=== PATIENT | female | born 1955 | race Caucasian/White ===

== ENCOUNTER 2018-06-05 09:33 | Outpatient (CLI) | payer BC | END 2018-06-05 09:34 | disposition critical access hospital (66) | LOC: EMS 09:33 | PROVIDERS: ATTEND Surgery | DX: S09.90XA Unspecified injury of head, initial encounter (principal); S69.91XA Unspecified injury of right wrist, hand and finger(s), initial encounter; W18.30XA Fall on same level, unspecified, initial encounter; Y92.008 Other place in unspecified non-institutional (private) residence as the place of occurrence of the external cause | CPT/HCPCS: A0425; A0429 ==

== ENCOUNTER 2018-06-05 09:56 | Emergency (ER) | payer BC ==
[2018-06-05] MEDS ORDERED: HYDROcod/ACETAM 5/325 MG TABLET PO STA (10:10)
[2018-06-05] MEDS ORDERED: BUFFERED LIDOCAINE 10 ML SYRINGE SUBQ STA (10:11)
--- NOTE | 2018-06-05 10:13 | ED Physician Documentation ---
PD HPI HEAD INJURY - Stated complaint Stated Complaint: HEAD LAC - Chief complaint Chief Complaint: Trauma Hd/Nk - History obtained from History obtained from: Patient - History of Present Illness Mechanism of head injury: Fell (She went outside last night to have a cigarette around 830 and was found by her down in the driveway about 15 minutes later. She does not remember falling or tripping. She admits to a single drink before that. She is up-to-date on tetanus. She has significant pain in the area of the right thumb and the posterior head lack. She is ambulatory without issues.) Review of Systems Constitutional: reports: Reviewed and negative Cardiac: reports: Reviewed and negative Respiratory: reports: Reviewed and negative GI: reports: Reviewed and negative PD PAST MEDICAL HISTORY - Past Medical History Endocrine/Autoimmune: HyPOthyroidism - Past Surgical History Past Surgical History: Yes Ortho: ACL reconstruction - Present Medications Home Medications: Ambulatory Orders Medication Instructions Recorded Confirmed Estrogen,Con/M-Progest Acet 02/28/15 02/28/15 [Prempro 0.3 mg-1.5 mg Tablet] Levothyroxine [Synthroid] 02/28/15 02/28/15 Methocarbamol 750 mg PO BID 02/28/15 02/28/15 Sertraline HCl 50 mg PO DAILY 02/28/15 02/28/15 - Allergies Allergies/Adverse Reactions: Allergies Allergy/AdvReac Type Severity Reaction Status Date / Time Sulfa (Sulfonamide Allergy Unknown Verified 06/05/18 10:04 Antibiotics) - Social History Does the pt smoke?: Yes Smoking Status: Current every day smoker Does the pt drink ETOH?: Yes Does the pt have substance abuse?: No - Immunizations Immunizations are current?: Yes - POLST Patient has POLST: No PD ED PE NORMAL - Vitals Vital signs reviewed: Yes - General General: Alert and oriented X 3, No acute distress - HEENT HEENT: PERRL, EOMI, Other (There is a head laceration to the right occiput, poorly visualized on initial examination because of overlying matted hair and blood.) - Neck Neck: Other (Mild mid and upper C-spine tenderness) - Cardiac Cardiac: RRR, No murmur - Respiratory Respiratory: No respiratory distress, Clear bilaterally - Abdomen Abdomen: Soft, Non tender - Back Back: No spinal TTP - Extremities Extremities: Other (There is significant swelling and ecchymosis over the first metacarpal on the right and tenderness there.) - Neuro Neuro: Alert and oriented X 3, Normal speech - Psych Psych: Normal mood, Normal affect Results - Vitals Vitals: Vital Signs - 24 hr 06/05/18 09:57 Temperature 36.0 C L Heart Rate 100 Respiratory 16 Rate Blood Pressure 135/63 H O2 Saturation 100 Oxygen O2 Source Room air - EKG (time done) 1054 Rate: Rate (enter#) (93) Rhythm: NSR [place]: Normal Intervals: Normal [place] QRS: Normal Ischemia: Normal ST segments Computer interpretation: Agree with computer - Rads (name of study) R hand Radiology: EMP read contemporaneously (Displaced fracture of the proximal phalanx of the right thumb) CT Head and Cspine Radiology: EMP read contemporaneously (4 mm left temporal parietal subdural hemorrhage with negative neck CT.) Procedures - Laceration (location) R occiput/scalp Length in cm: 2 Wound type: Linear Anesthesia: Lidocaine 1%, With bicarb Wound Preparation: Irrigated copiously NS, Debrided extensively (with clot removed) Skin layer closure: [place] (3) Other: Tetanus UTD Complexity: Simple - Splint (location) R hand Splint applied by: Tech Type of splint: Short arm, Thumb spica Other: Patient tolerated well, No complications, Neurovascular intact PD MEDICAL DECISION MAKING - ED course ED course: 63-year-old woman after a syncopal episode last night found in the driveway. Evidence of head injury and also thumb injury. Found to have a displaced thumb fracture. Also a subdermal hematoma. On reexamination noticed also to have ecchymosis and tenderness over the right posterior ribs and sent back for the completion of a haney scan. Placed in a thumb spica splint by the tech. Accepted by Dr. Schwab To [facility] given the trauma and necessity for neurosurgical input. [place] were completed. It has been 16 hours since the trauma so I think ground transport is reasonable. Departure - Departure Disposition: 02 Transfer Acute Care Hosp Clinical Impression: Subdural hematoma Thumb fracture Qualifiers: Encounter type: initial encounter Fracture type: closed Phalanx: proximal Fracture alignment: displaced Laterality: right Qualified Code(s): S62.511A - Displaced fracture of proximal phalanx of right thumb, initial encounter for closed fracture Syncope Qualifiers: Syncope type: unspecified Qualified Code(s): R55 - Syncope and collapse Scalp laceration Qualifiers: Encounter type: initial encounter Qualified Code(s): S01.01XA - Laceration without foreign body of scalp, initial encounter Condition: Serious
--- NOTE | 2018-06-05 10:59 | XRAY Report ---
Reason: hand inj Procedure Date: 06/05/2018 Accession Number: [id number] / [id number] Procedure: XR - Hand 3 View RT CPT Code: FULL RESULT: EXAM: RIGHT HAND RADIOGRAPHY EXAM DATE: 06/05/2018 10:28 AM. CLINICAL HISTORY: Ground level fall with hand injury. COMPARISON: None. TECHNIQUE: 3 views. FINDINGS: Bones: There is a fracture of the base of the proximal first phalanx with intra-articular extension and approximately 6 mm of impaction. Joints: Normal. No subluxations. Soft Tissues: Expected swelling surrounding the fracture. IMPRESSION: Intra-articular fracture of the base of the first proximal phalanx. RADIA
--- NOTE | 2018-06-05 11:09 | CT Report ---
Reason: head inj Procedure Date: 06/05/2018 Accession Number: [id number] / [id number] Procedure: CT - Cervical Spine W/O CPT Code: FULL RESULT: EXAM: CT HEAD. CT SCAN OF THE CERVICAL SPINE. EXAM DATE: 06/05/2018 10:20 AM. CLINICAL HISTORY: Head injury. COMPARISON: CT HEAD WITHOUT CONTRAST 04/16/2018 2:37 PM CERVICAL SPINE W/O 06/05/2018 10:24 AM. TECHNIQUE: Noncontrast axial sections through the head and cervical spine. Reformats: Sagittal and coronal of the head, coronal and sagittal of the cervical spine. In accordance with CT protocol optimization, one or more of the following dose reduction techniques were utilized for this exam: automated exposure control, adjustment of mA and/or KV based on patient size, or use of iterative reconstructive technique. FINDINGS CT HEAD: Parenchyma: Approximate 1 mm of rightward midline shift. No intraparenchymal hemorrhage. No evidence of mass. Small-white differentiation is distinct. Extraaxial Spaces: There is a lenticular shape blood density 4 mm thick extra-axial collection along the left frontotemporal convexity, favor subdural over epidural though difficult to differentiate at this site. Prominent bifrontal CSF spaces are again seen. Ventricles: Preserved with patent basal cisterns with slight mass effect on the left lateral ventricular system. Sinuses and orbits: Imaged paranasal sinuses, orbits, and mastoids show no significant abnormality. Bones: No evidence of fracture or calvarial defect. Other: Large right posterior extracranial soft tissue hematoma and laceration. FINDINGS CT CERVICAL SPINE: Alignment: Normal. No scoliosis or spondylolisthesis. Bones: No fracture or bone lesion. Interspace Levels/Facets: Minimal degenerative changes at C4/5 where there is 1 mm of anterolisthesis of C4 on C5 which is felt to be chronic. Spinal Canal: Normal. Musculature: Normal. No fatty atrophy. Other: The paravertebral and prevertebral soft tissues are unremarkable. The lung apices are clear. IMPRESSION: Head CT: 4 mm thick extra-axial likely subdural hematoma suspected in the left frontotemporal location. Cervical Spine CT: Negative. CRITICAL RESULT: The findings were discussed with on 06/05/2018 at 11:08 AM. RADIA
[2018-06-05] MEDS ORDERED: ONDANSETRON 4 MG/2 ML VIAL IVP STA (11:26)
[2018-06-05] MEDS ORDERED: MORPHINE 2 MG/ML CARPUJECT IVP STA (11:26)
[2018-06-05] MEDS ORDERED: IOVERSOL 320 100 ML VIAL IVP ONE ×2 (11:34→12:32)
[2018-06-05 11:45] LABS: BASOPHILS % (AUTO) 0.4 %; HGB - HEMOGLOBIN 11.4 g/dL (12.0-16.0); LYMPHOCYTES # (AUTO) 0.9 10^3/uL (1.5-3.5); LYMPHOCYTES % (AUTO) 12.4 %; MEAN CORPUSCULAR HEMOGLOBIN 39.3 pg (27.0-31.0); MEAN CORPUSCULAR HGB CONC 34.1 g/dL (32.0-36.0); MEAN CORPUSCULAR VOLUME 115.3 fL (81.0-99.0); MEAN PLATELET VOLUME 7.1 fL (7.9-10.8); MONOCYTES # (AUTO) 0.3 10^3/uL (0.0-1.0); NEUTROPHILS # (AUTO) 5.7 10^3/uL (1.5-6.6); NEUTROPHILS % (AUTO) 82.2 %; PLT - PLATELET COUNT 215 10^3/uL (130-450); RED BLOOD COUNT 2.91 10^6/uL (4.20-5.40); RED CELL DISTRIBUTION WIDTH 14.5 % (12.0-15.0); WHITE BLOOD COUNT 6.9 x10^3/uL (4.8-10.8)
[2018-06-05 11:52] LABS: ALBUMIN 4.3 g/dL (3.2-5.5); ALBUMIN/GLOBULIN RATIO 1.7 (1.0-2.2); BILIRUBIN,TOTAL 0.6 mg/dL (0.2-1.0); CALCIUM 8.9 mg/dL (8.5-10.3); CREATININE 0.6 mg/dL (0.4-1.0); TOTAL PROTEIN 6.8 g/dL (6.7-8.2)
[2018-06-05 12:49] VITALS: BP 126/54
--- NOTE | 2018-06-05 13:02 | CT Report ---
Reason: IV only, trauma, Procedure Date: 06/05/2018 Accession Number: [id number] / [id number] Procedure: CT - Abdomen/Pelvis W/ CPT Code: FULL RESULT: EXAM: CT ABDOMEN AND PELVIS EXAM DATE: 06/05/2018 12:47 PM. CLINICAL HISTORY: IV only, trauma. COMPARISONS: None. TECHNIQUE: Routine helical CT imaging was performed through the abdomen and pelvis. IV contrast: OPTIRAY 320 100mL. Enteric contrast: No. Reconstructions: Coronal and sagittal. In accordance with CT protocol optimization, one or more of the following dose reduction techniques were utilized for this exam: automated exposure control, adjustment of mA and/or KV based on patient size, or use of iterative reconstructive technique. FINDINGS: Lung Bases: Unremarkable. Liver: No evidence of traumatic injury. Gallbladder/Bile Ducts: Unremarkable. Spleen: Normal. Pancreas: Normal. Adrenal Glands: Normal. Kidneys: Normal. No masses or hydronephrosis. Peritoneal Cavity/Bowel: Normal. No free fluid, free air or adenopathy. No masses or acute inflammatory process. Pelvic Organs: Normal. The bladder and visualized pelvic organs are within normal limits. Vasculature: No aneurysms or other significant abnormality. Bones: Prior T11 vertebroplasty. Previous right pubic ramus fracture, healed. No acute fracture is detected. Other: None. IMPRESSION: No acute traumatic injury to the abdomen or pelvis. RADIA
--- NOTE | 2018-06-05 13:06 | CT Report ---
Reason: chest inj Procedure Date: 06/05/2018 Accession Number: [id number] / [id number] Procedure: CT - Chest W/ CPT Code: FULL RESULT: EXAM: CT CHEST EXAM DATE: 06/05/2018 12:47 PM. CLINICAL HISTORY: Chest injury. COMPARISONS: None. TECHNIQUE: Routine helical CT imaging was performed through the chest. IV contrast: 100 mL Optiray 320. Reconstructions: Coronal and sagittal. In accordance with CT protocol optimization, one or more of the following dose reduction techniques were utilized for this exam: automated exposure control, adjustment of mA and/or KV based on patient size, or use of iterative reconstructive technique. FINDINGS: Lungs/Pleura: No nodules, bronchial thickening, consolidation, or edema. Pulmonary vasculature is normal. No pericardial or pleural effusion. No pneumothorax. Mediastinum: Normal. No adenopathy or masses. The heart and great vessels are normal with the exception of calcifications of the aortic arch. Bones: Prior T11 vertebroplasty. No acute osseous injury is detected. Visualized Abdomen: Unremarkable. Other: The patient is status post bilateral breast augmentation, intact by CT. IMPRESSION: No evidence of traumatic injury to the thorax. RADIA
== END 2018-06-05 12:55 | disposition short-term general hospital (02) ==
LOC: EDBD → EDUNIT# → ED 09:56
DX: I62.00 Nontraumatic subdural hemorrhage, unspecified (principal); S62.511A Displaced fracture of proximal phalanx of right thumb, initial encounter for closed fracture; R55 Syncope and collapse; S01.01XA Laceration without foreign body of scalp, initial encounter; W18.30XA Fall on same level, unspecified, initial encounter; Y92.008 Other place in unspecified non-institutional (private) residence as the place of occurrence of the external cause; E03.9 Hypothyroidism, unspecified; F17.210 Nicotine dependence, cigarettes, uncomplicated
CPT/HCPCS: 12001; 29125; 36415; 70450; 71260; 72125; 73130; 74177; 80053; 80320; 83690; 85025; 93005; 96374; 99284; A9270; Q9967

== ENCOUNTER 2018-06-05 12:53 | Outpatient (CLI) | payer BC | END 2018-06-05 12:54 | disposition short-term general hospital (02) | LOC: EMS 12:53 | PROVIDERS: ATTEND Surgery | DX: I62.00 Nontraumatic subdural hemorrhage, unspecified (principal) | CPT/HCPCS: A0170; A0425; A0426 ==

== ENCOUNTER 2018-08-25 17:56 | Emergency (ER) | payer BC ==
[2018-08-25 18:10] VITALS: BP 138/61
[2018-08-25] MEDS ORDERED: HYDROcod/ACETAM 5/325 MG TABLET PO STA (18:30)
--- NOTE | 2018-08-25 18:31 | ED Physician Documentation ---
PD HPI LOWER EXT INJURY - Stated complaint Stated Complaint: R 4TH TOE INJ - Chief complaint Chief Complaint: Heent - History obtained from History obtained from: Patient, Family - History of Present Illness PD HPI LOW EXT INJURY LOCATION: Right (Last night she dropped a jar on her right fourth toe and has moderate pain there. No other injuries.) Review of Systems Constitutional: reports: Reviewed and negative Cardiac: reports: Reviewed and negative Respiratory: reports: Reviewed and negative PD PAST MEDICAL HISTORY - Past Medical History Endocrine/Autoimmune: HyPOthyroidism - Past Surgical History Past Surgical History: Yes Ortho: ACL reconstruction - Present Medications Home Medications: Ambulatory Orders Medication Instructions Recorded Confirmed Estrogen,Con/M-Progest Acet 02/28/15 02/28/15 [Prempro 0.3 mg-1.5 mg Tablet] Levothyroxine [Synthroid] 02/28/15 02/28/15 RX: Methocarbamol 750 mg PO BID 02/28/15 02/28/15 RX: Sertraline HCl 50 mg PO DAILY 02/28/15 02/28/15 Hydrocodone/Acetaminophen 1 - 2 each PO Q6H PRN #14 tablet 08/25/18 [Hydrocodon-Acetaminophen 5-325] - Allergies Allergies/Adverse Reactions: Allergies Allergy/AdvReac Type Severity Reaction Status Date / Time Sulfa (Sulfonamide Allergy Unknown Verified 08/25/18 18:05 Antibiotics) - Social History Does the pt smoke?: Yes Smoking Status: Current every day smoker Does the pt drink ETOH?: Yes Does the pt have substance abuse?: No - Immunizations Immunizations are current?: Yes - POLST Patient has POLST: No PD ED PE NORMAL - Vitals Vital signs reviewed: Yes - General General: Alert and oriented X 3, No acute distress - Extremities Extremities: Other (The entirety of the fourth toe is tender and black and blue but with good cap refill, no subungual hematoma.) - Neuro Neuro: Alert and oriented X 3, Normal speech - Psych Psych: Normal mood, Normal affect Results - Vitals Vitals: Vital Signs - 24 hr 08/25/18 18:05 Temperature 36.7 C Heart Rate 82 Respiratory 16 Rate Blood Pressure 138/61 H O2 Saturation 98 Oxygen O2 Source Room air - Rads (name of study) R 4th toe Radiology: EMP read contemporaneously (The radiologist read it is negative, to my eye especially on the lateral there is a nondisplaced tuft fracture. It will be treated as such.) Departure - Departure Disposition: 01 Home, Self Care Clinical Impression: Toe fracture, right Condition: Good Record reviewed to determine appropriate education?: Yes Instructions: ED Fx Toe Closed Prescriptions: Hydrocodone/Acetaminophen [Hydrocodon-Acetaminophen 5-325] 1 - 2 each PO Q6H PRN #14 tablet PRN Reason: pain Comments: Keep the toes rachelle taped as shown, ice and elevate. Wear the special shoe for as long as you need. I would not wear open toed shoes or flip-flops for at least 6 weeks. Follow-up with your doctor in 2 weeks to assess healing. Discharge Date/Time: 08/25/18 19:05
[2018-08-25] MEDS ORDERED: HYDROcod/ACET 5/325 Prepack 4 PO STA (18:53)
--- NOTE | 2018-08-25 19:24 | XRAY Report ---
Reason: 4th toe inj Procedure Date: 08/25/2018 Accession Number: [id number] / [id number] Procedure: XR - Toe(s) RT CPT Code: FULL RESULT: EXAM: RIGHT TOE RADIOGRAPHY EXAM DATE: 08/25/2018 06:36 PM. CLINICAL HISTORY: 4th toe inj. COMPARISON: FOOT 3 VIEW LT 02/28/2015 3:27 PM. TECHNIQUE: 3 views. FINDINGS: Bones: Normal. No fracture or bone lesion. Joints: Mild osteoarthritis of the interphalangeal joint. Soft Tissues: Normal. No soft tissue swelling. IMPRESSION: No visible fracture. RADIA
== END 2018-08-25 19:05 | disposition home or self-care (01) ==
LOC: ED 17:56
DX: S92.504A Nondisplaced unspecified fracture of right lesser toe(s), initial encounter for closed fracture (principal); W20.8XXA Other cause of strike by thrown, projected or falling object, initial encounter; F17.200 Nicotine dependence, unspecified, uncomplicated
CPT/HCPCS: 73660; 99283; A9270

== ENCOUNTER 2022-12-21 10:03 | Outpatient (CLI) | payer MEDICARE, OTHER ==
[2022-12-21 10:54] LABS: % IRON SATURATION 43 % (20-50); ALBUMIN 3.1 g/dL (3.2-5.5); ALBUMIN/GLOBULIN RATIO 1.3 (1.0-2.2); ALKALINE PHOSPHATASE 63 IU/L (42-121); ALT ALANINE AMINOTRANSFERASE 15 IU/L (10-60); AMYLASE 80 U/L (28-100); AST ASPARTATE AMINOTRANSFERASE 25 IU/L (10-42); BILIRUBIN,TOTAL 0.4 mg/dL (0.2-1.0); BUN - BLOOD UREA NITROGEN 13 mg/dL (6-20); CALCIUM 8.5 mg/dL (8.5-10.3); CARBON DIOXIDE - CO2 20 mmol/L (21-32); CHLORIDE 110 mmol/L (101-111); CHOL/HDL RATIO 1.8 (<4.4); CHOLESTEROL 203 mg/dL; CREATININE 0.7 mg/dL (0.4-1.0); GFR - MDRD 84 (>89); GLUCOSE 101 mg/dL (70-100); HDL CHOLESTEROL 111 mg/dL; IRON 108 ug/dL (28-170); LDL CHOLESTEROL,CALCULATED 70 mg/dL; LDL/HDL RATIO 0.6 (<4.4); LIPASE 18 U/L (22-51); POTASSIUM 3.9 mmol/L (3.5-5.0); SODIUM 138 mmol/L (135-145); TOTAL IRON BINDING CAPACITY 253 ug/dL (250-450); TOTAL PROTEIN 5.4 g/dL (6.7-8.2); TRANSFERRIN 181 mg/dL (192-382); TRIGLYCERIDES 110 mg/dL; VLDL CHOLESTEROL 22 mg/dL
[2022-12-21 10:55] LABS: BASOPHILS % (AUTO) 0.9 %; EOSINOPHILS # (AUTO) 0.1 10^3/uL (0.0-0.7); EOSINOPHILS % (AUTO) 1.5 %; HCT - HEMATOCRIT 32.5 % (37.0-47.0); HGB - HEMOGLOBIN 10.7 g/dL (12.0-16.0); LYMPHOCYTES # (AUTO) 1.6 10^3/uL (1.5-3.5); LYMPHOCYTES % (AUTO) 33.8 %; MEAN CORPUSCULAR HEMOGLOBIN 37.3 pg (27.0-31.0); MEAN CORPUSCULAR HGB CONC 32.9 g/dL (32.0-36.0); MEAN CORPUSCULAR VOLUME 113.2 fL (81.0-99.0); MEAN PLATELET VOLUME 8.9 fL (7.9-10.8); MONOCYTES # (AUTO) 0.3 10^3/uL (0.0-1.0); MONOCYTES % (AUTO) 6.4 %; NEUTROPHILS # (AUTO) 2.7 10^3/uL (1.5-6.6); PLT - PLATELET COUNT 295 10^3/uL (130-450); RED BLOOD COUNT 2.87 10^6/uL (4.20-5.40); RED CELL DISTRIBUTION WIDTH 15.2 % (12.0-15.0); WHITE BLOOD COUNT 4.7 x10^3/uL (4.8-10.8)
[2022-12-21 10:57] LABS: SLIDE REVIEW? Indicated
[2022-12-21 11:06] LABS: THYROID STIMULATING HORMONE 2.28 uIU/mL (0.34-5.60)
[2022-12-21 11:08] LABS: FREE T4 (FREE THYROXINE) 0.97 ng/dL (0.58-1.64)
[2022-12-21 11:11] LABS: PLATELET ESTIMATE, MANUAL NORMAL (130-450,000) (NORMAL); PLATELET MORPHOLOGY NORMAL APPEARANCE (NORMAL); RBC MORPHOLOGY (MULTIPLE) 3+ MACROCYTOSIS (NORMAL)
== END 2022-12-21 10:04 | disposition home or self-care (01) ==
LOC: LAB 10:03
PROVIDERS: ATTEND Internal Medicine
DX: Z00.00 Encounter for general adult medical examination without abnormal findings (principal); R11.0 Nausea; E61.1 Iron deficiency; E03.9 Hypothyroidism, unspecified; Z87.19 Personal history of other diseases of the digestive system; D64.9 Anemia, unspecified
CPT/HCPCS: 36415; 80053; 80061; 81599; 82150; 82607; 83540; 83690; 83721; 84439; 84443; 84466; 85025

== ENCOUNTER 2023-03-31 17:06 | Outpatient (CLI) | payer MEDICARE, OTHER | END 2023-03-31 17:07 | disposition critical access hospital (66) | LOC: EMS 17:06 | DX: S09.90XA Unspecified injury of head, initial encounter (principal); S80.11XA Contusion of right lower leg, initial encounter; W01.0XXA Fall on same level from slipping, tripping and stumbling without subsequent striking against object, initial encounter; Y93.E5 Activity, floor mopping and cleaning; Y92.009 Unspecified place in unspecified non-institutional (private) residence as the place of occurrence of the external cause | CPT/HCPCS: A0425; A0429 ==

== ENCOUNTER 2023-03-31 17:31 | Emergency (ER) | payer MEDICARE, OTHER ==
[2023-03-31 17:43] VITALS: O2SAT 100
--- NOTE | 2023-03-31 18:01 | ED Physician Documentation ---
History of Present Illness - Stated complaint Stated Complaint: FALL - Chief complaint Chief Complaint: Trauma Hd/Nk - History obtained from History obtained from: Patient - Additonal information Additional information: This is this is a 67-year-old female who presents after a ground-level fall at home. The patient slipped at home and fell. She states she did strike her head and believes she lost consciousness for "up to an hour and a half." She was alone ever and it was unwitnessed this time is not certain. She states that she has some discomfort in the right lower leg as well around the right knee and right tib-fib region. No pain in the hip or pelvis. She has difficulty bearing weight on the right leg however due to pain. She believes she fell onto her right leg. She is not on any anticoagulation, had no seizure-like activity to her knowledge, no tongue biting, no loss of bowel or bladder. She states she Had to crawl around on her floor for a couple of hours after she fell in order to get a hold of somebody to help her. She is concerned because she has a history of a left hip fracture and she states she and he is aware that she has osteopenia and is concerned that she may have broken a bone.She denies any neck pain, no back pain, no current headache, no confusion, no chest pain or difficulty breathing, no abdominal pain nausea vomiting or diarrhea. Review of Systems Constitutional: reports: Reviewed and negative Eyes: reports: Reviewed and negative Ears: reports: Reviewed and negative Nose: reports: Reviewed and negative Throat: reports: Reviewed and negative Cardiac: reports: Reviewed and negative Respiratory: reports: Reviewed and negative GI: reports: Reviewed and negative : reports: Reviewed and negative Skin: reports: Other (Right leg bruising) Musculoskeletal: reports: Extremity pain, Other (Right lower leg pain) Neurologic: reports: Head injury, LOC. denies: Generalized weakness, Focal weakness, Numbness, Difficulty speaking, Near syncope, Syncope, Seizure, Confused, Altered mental status, Unresponsive, Headache PD PAST MEDICAL HISTORY - Past Medical History Past Medical History: Yes Cardiovascular: None Respiratory: None Neuro: None Endocrine/Autoimmune: HyPOthyroidism GI: None RELIEF MASTER: None : None HEENT: None Psych: Anxiety Musculoskeletal: Osteoarthritis, Fibromyalgia, Osteopenia Derm: None - Past Surgical History Past Surgical History: Yes Ortho: ACL reconstruction HEENT: Other - Present Medications Home Medications: Ambulatory Orders Medication Instructions Recorded Confirmed methocarbamoL [Methocarbamol] 750 mg PO QID 02/28/15 03/05/23 Hydrocodone/Acetaminophen 1 - 2 each PO Q6H PRN #14 tablet 08/25/18 03/05/23 [Hydrocodone-Acetamin 5-325 mg] Acetaminophen 320 mg PO TID 03/05/23 03/05/23 Cyanocobalamin (Vitamin B-12) 1,000 mcg PO DAILY 03/05/23 03/05/23 [Vitamin B-12] Diclofenac Sodium 1% Gel [Voltaren 50 gm TOP BID 03/05/23 03/05/23 Gel] Ergocalciferol (Vitamin D2) 1 cap PO DAILY 03/05/23 03/05/23 [Vitamin D2] Ferrous Sulfate 325 mg PO BID 03/05/23 03/05/23 Levothyroxine [Synthroid] 100 mcg PO QDAC 03/05/23 03/05/23 Lipase/Protease/Amylase [Alejandra Gr 1 - 2 ea PO DAILY 03/05/23 03/05/23 6,000 Unit Capsule] Ondansetron HCl 4 mg PO Q4HR PRN 03/05/23 03/05/23 Pantoprazole Sodium 40 mg PO DAILY 03/05/23 03/05/23 Thiamine [Vitamin B-1] 100 mg PO DAILY 03/05/23 03/05/23 diphenhydrAMINE HCL [Unisom] 50 mg PO DAILY 03/05/23 03/05/23 Acetaminophen [Tylenol] 650 mg PO Q4HR PRN 14 Days #20 tab 03/10/23 Aspirin EC [Ecotrin] 81 mg PO BID 40 Days #80 tab 03/10/23 Calcium Citrate 500 mg PO TID 30 Days #180 tab 03/10/23 Cholecalciferol [Vitamin D3] 800 unit PO DAILY 30 Days #60 tab 03/10/23 Docusate Sodium 100Mg Capsule 100 mg PO BID PRN 14 Days #20 cap 03/10/23 [Colace 100Mg Capsule] Ferrous Sulfate [Feosol] 325 mg PO BIDWM 30 Days #0 tab 03/10/23 HYDROcod/ACETAM 5/325 [[place] 5/325] 1 tab PO Q4HR PRN 14 Days #14 tab 03/10/23 Levothyroxine [Synthroid] 100 mcg PO QDAC tab 03/10/23 Lipase/Protease/Amylase 1 cap PO PRN PRN cap 03/10/[address] [[address] 5,000/17,000/24,000 Mcfp] Lipase/Protease/Amylase 2 cap PO TIDWM cap 03/10/23 [Pancrelipase Dr 5,000/17,000/24,000 Mcfp] Pantoprazole [Protonix] 40 mg PO DAILY tab 03/10/23 - Allergies Allergies/Adverse Reactions: Allergies Allergy/AdvReac Type Severity Reaction Status Date / Time Sulfa (Sulfonamide Allergy Anaphylaxis Verified 03/31/23 17:36 Antibiotics) - Social History Does the pt smoke?: Yes Smoking Status: Current every day smoker Does the pt drink ETOH?: Yes Does the pt have substance abuse?: No - Immunizations Immunizations are current?: Yes - POLST Patient has POLST: No PD ED PE NORMAL - Vitals Vital signs reviewed: Yes - General General: Alert and oriented X 3, No acute distress, Well developed/nourished - HEENT HEENT: Atraumatic, PERRL, EOMI, Moist mucous membranes - Cardiac Cardiac: RRR, No murmur - Respiratory Respiratory: No respiratory distress, Clear bilaterally - Abdomen Abdomen: Normal bowel sounds, Soft, Non tender, Non distended - Derm Derm: Normal color, Warm and dry, No rash, Other (There is very light bruising to the lateral aspect of the right lower leg.) - Extremities Extremities: No deformity, Other (Pelvis is stable nontender, there is no pain with the palpation of the hip or femur the mild pain around the right knee, and the proximal tibia of the right leg. No other extremity tenderness or obvious deformities) - Neuro Neuro: Alert and oriented X 3, No motor deficit, No sensory deficit, Normal s peech Eye Opening: Spontaneous Motor: Obeys Commands Verbal: Oriented GCS Score: 15 Results - Vitals Vitals: Vital Signs - 24 hr 03/31/23 03/31/23 17:36 19:35 Temperature 36.5 C 36.5 C Heart Rate 74 72 Respiratory 16 16 Rate Blood Pressure 139/86 H 130/84 H O2 Saturation 100 100 Oxygen O2 Source Room air - Rads (name of study) No standard instances Relevant Findings:: Final report received PD Medical Decision Making - ED course Complexity details: reviewed results, re-evaluated patient, considered differential, d/w patient ED course: tenderness and no obvious deformities. 67-year-old female presented after ground-level fall as a treatment in [facility]. Patient had a head injury and loss of consciousness at home and fell onto her right lower leg. On physical exam, patient is awake alert very pleasantly conversant, no acute distress with a normal neurologic exam. She has pain with palpation of the proximal right lower leg, and around the knee but no obvious deformities. There is no hip or pelvis pain no lower back or neck pain. We did obtain a head CT given her fall with loss of consciousness and this was negative, and a CT did an x-ray of her right femur knee and tib-fib which show osteopenia but no acute fractures. Patient was advised of ana m lane that she likely has some soft tissue contusion and recommended Tylenol ibuprofen as needed for discomfort, and to utilize her assistive devices for any and all ambulation at home for her safety. Encouraged her not to engage in any activities which could cause her to sustain a second h ead injury given her recent loss of consciousness and she states understanding. She was discharged home in stable condition. Departure - Departure Disposition: 01 Home, Self Care Clinical Impression: Fall from ground level Contusion of leg, right Qualifiers: Encounter type: initial encounter Qualified Code(s): S80.11XA - Contusion of right lower leg, initial encounter Condition: Good Instructions: ED Contusion Lower Ext, ED Head Injury Closed Comments: Your xrays show osteopenia but no broken bones. Your head CT is normal. You may have sustained a concussion given your loss of consciousness, but there is no sign of bleeding or damage inside the brain. Please move carefully and use assistance as needed to avoid recurrent falls. Return if you have increased pain or new symptoms. Forms: PCP List Discharge Date/Time: 03/31/23 19:35
--- NOTE | 2023-03-31 18:52 | XRAY Report ---
PROCEDURE: Femur 2V RT INDICATIONS: fall, pain distal femur TECHNIQUE: 2 view(s) of the femur were acquired. COMPARISON: None. FINDINGS: Bones: No fractures or dislocations. No suspicious bony lesions. Generalized decreased osseous min eralization present. Degenerative joint space narrowing noted in the knee Soft tissues: No suspicious soft tissue calcifications or masses. IMPRESSION: Osteopenia and degenerative changes without fracture or foreign body Reviewed by: Jhon Cleary MD on 03/31/2023 5:51 PM AKDT Approved by: Jhon Cleary MD on 03/31/2023 5:51 PM AKDT Station ID: [id number]
--- NOTE | 2023-03-31 18:59 | XRAY Report ---
PROCEDURE: Knee 3 View RT INDICATIONS: fall, pain TECHNIQUE: 3 views of the knee was obtained. COMPARISON: None FINDINGS: Bones: No fractures or dislocations. No suspicious bony lesions. Osteopenia. Moderate degenerative joint space narrowing. Soft tissues: No knee joint effusion. No suspicious soft tissue calcifications or masses. Muscular fatty replacement and atrophy IMPRESSION: Osteopenia without fracture or foreign body Reviewed by: Jhon Cleary MD on 03/31/2023 5:58 PM AKDT Approved by: Jhon Cleary MD on 03/31/2023 5:58 PM AKDT Station ID: [id number]
--- NOTE | 2023-03-31 19:00 | XRAY Report ---
PROCEDURE: Tib/Fib RT INDICATIONS: fall, pain TECHNIQUE: 2 views of the tibia and fibula were acquired. COMPARISON: None. FINDINGS: Bones: No fractures or dislocations. No suspicious bony lesions. Generalized decreased osseous mi neralization present. Soft tissues: No suspicious soft tissue calcifications or masses. IMPRESSION: Osteopenia without fracture Reviewed by: Jhon Cleary MD on 03/31/2023 5:58 PM AKDT Approved by: Jhon Cleary MD on 03/31/2023 5:58 PM AKDT Station ID: [id number]
--- NOTE | 2023-03-31 19:19 | CT Report ---
PROCEDURE: HEAD WO INDICATIONS: fall TECHNIQUE: Noncontrast 4.5 mm thick angled axial sections acquired from the foramen magnum to the vertex. For r adiation dose reduction, the following was used: automated exposure control, adjustment of mA and/or kV according to patient size. COMPARISON: CT head 06/05/2018 FINDINGS: Image quality: Excellent. CSF spaces: Basal cisterns are patent. No extra-axial fluid collections. Ventricles are normal in size and shape. Brain: No midline shift. No intracranial masses or hemorrhage. Chronic bifrontal subdural hygromas . Small-white matter interface is normal. Skull and face: Calvarium and visualized facial bones are intact, without suspicious lesions. Sinuses: Visualized sinuses and mastoids are clear. IMPRESSION: 1. No acute intracranial process. Reviewed by: Denise Díaz MD on 03/31/2023 7:18 PM PDT Approved by: Denise Díaz MD on 03/31/2023 7:18 PM PDT Station ID: [id number]
[2023-03-31 19:37] VITALS: BP 130/84
== END 2023-03-31 19:35 | disposition home or self-care (01) ==
LOC: ED 17:31
DX: S80.11XA Contusion of right lower leg, initial encounter (principal); W01.0XXA Fall on same level from slipping, tripping and stumbling without subsequent striking against object, initial encounter; Y92.009 Unspecified place in unspecified non-institutional (private) residence as the place of occurrence of the external cause; F17.200 Nicotine dependence, unspecified, uncomplicated
CPT/HCPCS: 99283; 99284

== ENCOUNTER 2023-04-16 11:41 | Outpatient (CLI) | payer MEDICARE, OTHER | END 2023-04-16 11:42 | disposition critical access hospital (66) | LOC: EMS 11:41 | DX: R53.1 Weakness (principal); R07.1 Chest pain on breathing; M25.512 Pain in left shoulder; M25.552 Pain in left hip | CPT/HCPCS: A0425; A0427 ==

== ENCOUNTER 2023-04-16 12:04 | Inpatient (IN) | payer MEDICARE, OTHER ==
[2023-04-16] MEDS ORDERED: SODIUM CHLORIDE 0.9% 1,000 ML IV STA ×2 (12:41→14:15)
--- NOTE | 2023-04-16 13:06 | XRAY Report ---
PROCEDURE: Chest 1 View X-Ray INDICATIONS: CP TECHNIQUE: One view of the chest was acquired. COMPARISON: 06/05/2018 FINDINGS: Surgical changes and devices: Left shoulder arthroplasty again seen. Lungs and pleura: No dense consolidation or pleural effusion. A right apical line is seen, possibly external to the thorax. In addition, numerous branching hyperdensities are seen, right greater than left. Mediastinum: Normal heart size Bones and chest wall: Vertebral augmentation in the lower thoracic spine partially seen. IMPRESSION: No dense consolidation or pleural effusion. A line is seen projecting over the right pulmonary apex, possibly external to the patient, less likely pneumothorax. If there is concern, consider repeat radi ograph or CT. 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 Reviewed by: Paul Dahl MD on 04/16/2023 1:05 PM PST Approved by: Paul Dahl MD on 04/16/2023 1:05 PM PST Station ID: [id number]
[2023-04-16 13:12] LABS: BASOPHILS % (AUTO) 0.3 %; EOSINOPHILS % (AUTO) 0.3 %; HCT - HEMATOCRIT 26.4 % (37.0-47.0); HGB - HEMOGLOBIN 8.6 g/dL (12.0-16.0); LYMPHOCYTES % (AUTO) 14.8 %; MEAN CORPUSCULAR HEMOGLOBIN 39.6 pg (27.0-31.0); MEAN CORPUSCULAR HGB CONC 32.6 g/dL (32.0-36.0); MEAN CORPUSCULAR VOLUME 121.7 fL (81.0-99.0); MEAN PLATELET VOLUME 10.8 fL (7.9-10.8); MONOCYTES % (AUTO) 8.5 %; NEUTROPHILS % (AUTO) 74.2 %; PLT - PLATELET COUNT 130 10^3/uL (130-450); RED BLOOD COUNT 2.17 10^6/uL (4.20-5.40); RED CELL DISTRIBUTION WIDTH 16.1 % (12.0-15.0); WHITE BLOOD COUNT 7.2 x10^3/uL (4.8-10.8)
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
[2023-04-16 13:21] LABS: ABNORMAL LYMPHS % (MANUAL) 0 %
[2023-04-16 13:25] LABS: ALBUMIN 2.2 g/dL (3.2-5.5); ALBUMIN/GLOBULIN RATIO 1.2 (1.0-2.2); ALKALINE PHOSPHATASE 225 IU/L (42-121); ALT ALANINE AMINOTRANSFERASE 93 IU/L (10-60); AST ASPARTATE AMINOTRANSFERASE 225 IU/L (10-42); BILIRUBIN,TOTAL 0.7 mg/dL (0.2-1.0); BUN - BLOOD UREA NITROGEN 15 mg/dL (6-20); CALCIUM 7.9 mg/dL (8.5-10.3); CARBON DIOXIDE - CO2 14 mmol/L (21-32); CHLORIDE 117 mmol/L (101-111); CREATININE 1.1 mg/dL (0.6-1.3); GFR - MDRD 50 (>89); GLUCOSE 77 mg/dL (74-104); LIPASE < 10 U/L (11-82); SODIUM 140 mmol/L (135-145); TOTAL PROTEIN 4.1 g/dL (6.4-8.9)
[2023-04-16 13:34] LABS: BAND NEUTROPHILS % (MANUAL) 4 %; DIFFERENTIAL COMMENT MANUAL DIFFERENTIAL; EOSINOPHILS # (MANUAL) 0.1 10^3/uL (0-0.7); LYMPHOCYTES % (MANUAL) 12 %; MONOCYTES # (MANUAL) 0.6 10^3/uL (0.0-1.0); NEUTROPHILS # (MANUAL) 5.5 10^3/uL (1.5-6.6); PLATELET ESTIMATE, MANUAL NORMAL (130-450,000) (NORMAL); RBC MORPHOLOGY (MULTIPLE) 3+ ANISOCYTOSIS (NORMAL); REACTIVE LYMPHS % (MANUAL) 2 %
[2023-04-16] MEDS ORDERED: ACETAMINOPHEN 325 MG TABLET PO STA (13:55)
[2023-04-16] MEDS ORDERED: POTASSIUM CHLORIDE 20 MEQ TABLET PO ONE (13:56)
[2023-04-16 14:03] LABS: B. PARAPERTUSSIS- RESP PCR PAN NOT DETECTED; B. PERTUSSIS- RESP PCR PANEL NOT DETECTED; C. PNEUMONIAE- RESP PCR PANEL NOT DETECTED; CORONAVIRUS 229E-RESP PCR NOT DETECTED; CORONAVIRUS HKU1-RESP PCR NOT DETECTED; CORONAVIRUS NL63-RESP PCR NOT DETECTED; CORONAVIRUS OC43-RESP PCR NOT DETECTED; HUMAN METAPNEUMOVIRUS NOT DETECTED; INFLUENZA A- RESP PCR PANEL NOT DETECTED; INFLUENZA B - RESP PCR PANEL NOT DETECTED; M. PNEUMONIAE- RESP PCR PANEL NOT DETECTED; PARAINFLUENZA VIRUS 1 NOT DETECTED; PARAINFLUENZA VIRUS 2 NOT DETECTED; PARAINFLUENZA VIRUS 3 NOT DETECTED; PARAINFLUENZA VIRUS 4 NOT DETECTED; RHINOVIRUS/ENTEROVIRUS NOT DETECTED; RSV- RESP PCR PANEL NOT DETECTED; SARS-CoV-2 -RESP PCR PANEL NOT DETECTED
[2023-04-16] MEDS ORDERED: MORPHINE 2 MG/ML CARPUJECT IVP STA (14:25)
--- NOTE | 2023-04-16 14:42 | XRAY Report ---
PROCEDURE: Shoulder 3 View LT INDICATIONS: pain TECHNIQUE: 3 views of the shoulder were acquired. COMPARISON: None FINDINGS: Bones: No fractures or dislocations. No suspicious bony lesions. Visualized ribs appear intact. T otal left shoulder arthroplasty in good position Soft tissues: No suspicious soft tissue calcifications. IMPRESSION: Total left shoulder arthroplasty in good position Reviewed by: Jhon Cleary MD on 04/16/2023 1:41 PM [place] Approved by: Jhon Cleary MD on 04/16/2023 1:41 PM [place] Station ID: [id number]
[2023-04-16 16:01] LABS: BILIRUBIN,URINE NEGATIVE (NEGATIVE); GLUCOSE, URINE (UA) NEGATIVE (NEGATIVE); KETONES,URINE (UA) NEGATIVE (NEGATIVE); LEUKOCYTE ESTERASE, URINE SMALL (NEGATIVE); NITRITE,URINE NEGATIVE (NEGATIVE); OCCULT BLOOD,URINE NEGATIVE (NEGATIVE); PROTEIN,URINE TRACE mg/dL (NEGATIVE); UROBILINOGEN,URINE 0.2 (NORMAL) E.U./dL (NORMAL)
[2023-04-16 16:04] LABS: CLARITY,URINE HAZY (CLEAR)
[2023-04-16 16:13] LABS: BACTERIA,URINE Many /HPF (None Seen); RBC,URINE None Seen /HPF (0-5); SQUAMOUS EPITHELIAL CELL,UR FEW Squamous (<= Few)
[2023-04-16] MEDS ORDERED: iohexoL-300 100 ML VIAL IVP ONE (16:41)
--- NOTE | 2023-04-16 17:41 | CT Report ---
PROCEDURE: ABDOMEN/PELVIS W INDICATIONS: N/V/poor intake/abnormal LFTs CONTRAST: 80mL Omni 300 TECHNIQUE: After the administration of intravenous contrast, 5 mm thick sections acquired from the diaphragms to the symphysis. 5 mm thick coronal and sagittal reformats were acquired. For radiation dose reducti on, the following was used: automated exposure control, adjustment of mA and/or kV according to karol ent size. COMPARISON: None FINDINGS: Image quality: Excellent. Lung bases and heart: Small left pleural effusion. Liver: No solid mass. Gallbladder and biliary tree: No radiopaque stones or wall thickening. No biliary dilation. Spleen: No splenomegaly. Pancreas: Markedly atrophic. Adrenals: No adrenal nodule. Kidneys and ureters: No hydronephrosis. No renal cystic lesion which requires follow up. No solid mas s. Bowel and peritoneum: No bowel distension. Small volume free fluid in the pelvis, greater than expect ed for age. Lymph nodes: No central or retroperitoneal adenopathy. Vessels: No infrarenal aortic aneurysm. PELVIS Reproductive organs: Unremarkable. Bladder: No abnormal wall thickening, accounting for underdistension. Pelvic lymph nodes: No pelvic adenopathy by size criteria. Bones: No aggressive osseous abnormality. Vertebral augmentation at T11. Healed left pubic ramus frac ture. Other: No significant ventral or inguinal hernia. Mild anasarca. Bilateral breast implants. IMPRESSION: Third spacing of fluids, with mild anasarca, small left pleural effusion and small volume ascites. No acute abnormality. Reviewed by: Matthew Whitt on 04/16/2023 5:39 PM PST Approved by: Matthew Whitt on 04/16/2023 5:39 PM PST Station ID: [id number]
--- NOTE | 2023-04-16 17:46 | CT Report ---
PROCEDURE: ANGIO CHEST W/WO INDICATIONS: CP/SOA/recent surgery CONTRAST: 80mL Omni 300 TECHNIQUE: After the administration of intravenous contrast, 2 mm axial images were acquired from the pulmonary apices to the posterior costophrenic angles during the arterial phase. In addition, 1 mm lung kernel and 5 mm soft tissue kernel reconstructions were performed. 3-dimensional coronal oblique maximum int ensity projection (MIP) reformats, 8 mm axial MIP, and 5 mm coronal and sagittal MPR reformats were t hen performed through the thorax. For radiation dose reduction, the following was used: automated exp osure control, adjustment of mA and/or kV according to patient size. COMPARISON: Same day x-ray. FINDINGS: Image quality: Excellent. Large vessels: Suspected filling defect within a distal subsegmental pulmonary artery of the left upp er lobe (series 3, image 74). Prior MA emboli from vertebral augmentation. Lungs and pleura: Wedge-shaped consolidation with associated internal bubbly lucency in the lateral l eft upper lobe, distal to the site of subsegmental pulmonary embolus. No pleural effusions. No pneum othorax. No suspicious pulmonary nodules which require follow up. Mediastinum: Heart size is normal. Left ventricle is greater in size than the right. No pericardial e ffusion. No large vessel abnormality. No mediastinal adenopathy by size criteria. Chest wall and lower neck: Thyroid is unremarkable. No axillary or supraclavicular adenopathy by size . Bones: No aggressive osseous abnormality. Upper Abdomen: Unremarkable. IMPRESSION: Tiny subsegmental pulmonary embolus of the left upper lobe, resulting in a wedge-shaped infarct. No evidence of heart strain. Small left pleural effusion. Reviewed by: Matthew Whitt on 04/16/2023 5:45 PM PST Approved by: aMtthew Whitt on 04/16/2023 5:45 PM PST Station ID: [id number]
[2023-04-16] MEDS ORDERED: ENOXAPARIN 40 MG/0.4 ML SYRINGE SUBQ STA (17:57)
--- NOTE | 2023-04-16 20:01 | ED Physician Documentation ---
ED Addendum - Addendum Addendum: 04/16/23 19:58 I received signout/turnover of care of this patient from Dr. Kamara at the end of her shift; please see her note for complete history and physical. Shortly after signout, I received a phone call from Dr. Wallace (scrap collector at [facility]). We discussed the vital signs, CT findings, and the discussion that my colleague had with the [facility] hospitalist. The upshot of this discussion is that Dr. Wallace says that the PE is too small, and that there is no current/persistent shock, to consider this anything worse than "low risk"; Dr. Wallace says the patient is safe and appropriate to be admitted to [facility] for further treatment and testing as needed. He says that the patient would not necessitate, nor benefit from, transfer to their facility. 04/16/23 21:34 I subsequently discussed the case with the telehealth physician for [facility], and she accepts patient to [facility] hospitalist service.
[2023-04-16] MEDS ORDERED: ONDANSETRON 4 MG/2 ML VIAL IVP PRN (20:34)
[2023-04-16] MEDS ORDERED: SODIUM CHLORIDE FLUSH 0.9% 10 ML SYRINGE IVP PRN (20:34)
[2023-04-16] MEDS ORDERED: oxyCODONE 5 MG TABLET PO PRN (20:34)
[2023-04-16] MEDS ORDERED: ACETAMINOPHEN 325 MG TABLET PO PRN (20:34)
[2023-04-16] MEDS ORDERED: MORPHINE 2 MG/ML CARPUJECT IVP PRN (20:34)
[2023-04-16] MEDS ORDERED: ONDANSETRON ODT 4 MG TABLET TL PRN (20:34)
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
[2023-04-16] MEDS ORDERED: SODIUM CHLORIDE 0.9% 1,000 ML IV SCH (21:00)
[2023-04-16] MEDS ORDERED: APIXABAN 5 MG TABLET PO SCH (21:00)
[2023-04-16] MEDS ORDERED: DOCUSATE SODIUM 100 MG CAPSULE PO PRN (21:17)
[2023-04-16] MEDS ORDERED: MORPHINE 2 MG/ML CARPUJECT ONE (21:30)
[2023-04-16] MEDS ORDERED: SODIUM CHLORIDE 0.9% 1,000 ML ONE (21:31)
[2023-04-16] MEDS ORDERED: APIXABAN 5 MG TABLET ONE ×2 (21:31→21:56)
[2023-04-16] MEDS ORDERED: ONDANSETRON ODT 4 MG TABLET PO PRN (21:35)
[2023-04-16] MEDS: CALCIUM CITRATE 250 MG TABLET PO SCH (21:54)
[2023-04-16] MEDS ORDERED: IPRATROPIUM/ALBUTEROL 3 ML NEB INH PRN (21:54)
[2023-04-16] MEDS: oxyCODONE 5 MG TABLET PO PRN (23:55)
[2023-04-17] MEDS: SODIUM CHLORIDE FLUSH 0.9% 10 ML SYRINGE IVP SCH ×3 (00:19→17:23)
[2023-04-17] MEDS: NICOTINE 7 MG PATCH TOP SCH ×2 (00:39→10:19)
[2023-04-17] MEDS: CALCIUM CITRATE 250 MG TABLET PO SCH ×3 (06:19→21:10)
[2023-04-17] MEDS: LEVOTHYROXINE 100 MCG TABLET PO SCH (06:19)
[2023-04-17] MEDS ORDERED: CHOLECALCIFEROL 400 UNIT TABLET PO SCH (09:00)
[2023-04-17] MEDS: MORPHINE 2 MG/ML CARPUJECT IVP PRN ×2 (09:43→16:27)
[2023-04-17] MEDS: APIXABAN 5 MG TABLET PO SCH ×2 (10:18→21:10)
[2023-04-17] MEDS: FERROUS SULFATE 325 MG TABLET PO SCH ×2 (10:18→17:23)
[2023-04-17] MEDS: CHOLECALCIFEROL 25 MCG TABLET PO SCH (10:19)
[2023-04-17] MEDS: CYANOCOBALAMIN 500 MCG TABLET PO SCH (10:19)
[2023-04-17] MEDS: PANTOPRAZOLE 40 MG TABLET PO SCH (10:19)
[2023-04-17] MEDS: THIAMINE 100 MG TABLET PO SCH (10:19)
[2023-04-17] MEDS: DICLOFENAC SODIUM 1% GEL 50 GM TUBE TOP SCH ×2 (10:25→21:10)
[2023-04-17] MEDS: cefTRIAXone 2 GM in SODIUM CHLORIDE 0.9% MINIBAG 100 ML IV SCH (10:26)
[2023-04-17] MEDS: SODIUM CHLORIDE 0.9% 1,000 ML IV SCH ×2 (10:27→21:16)
[2023-04-17] MEDS: KETOROLAC 30 MG/ML VIAL IVP PRN (13:16)
[2023-04-17] MEDS: LIPASE/PROTEASE/AMYLASE CAPSULE PO SCH ×3 (13:22→17:23)
--- NOTE | 2023-04-17 15:13 | PROVIDER PROGRESS NOTE ---
Assessment/Plan - Problem List (1) Pulmonary embolism Assessment/Plan: Pulmonary embolism CTA chest showing evidence of a subsegmental PE with a wedge-shaped infarct. This was discussed with green end worker at [facility] and he suggests that the PE is too small for any intervention. She was admitted and started on Eliquis 10 mg twice daily for 7 days which will be followed by 5 mg twice daily. She has not required any supplemental oxygen. We will obtain a TTE to look for right ventricular strain given she was having some chest pain and tachycardia today. (2) Anemia Qualifiers: Anemia type: unspecified type Qualified Code(s): D64.9 - Anemia, unspecified Assessment/Plan: Anemia appears to be secondary to her prior alcohol use (macrocytic). Continue home B12 medications. Weakness PT/OT consulted. Elevated liver enzymes Acute hepatitis studies are currently pending. Patient does have history of alcohol use. DJD Psoriatic arthritis Fibromyalgia Osteopenia Continue home methocarbamol, Voltaren gel, vitamin D. Hypothyroidism Continue levothyroxine. GERD Continue PPI. (4) Intertrochanteric fracture Qualifiers: Encounter type: initial encounter Fracture type: closed Fracture ali gnment: nondisplaced Laterality: left Qualified Code(s): S72.145A - Nondisplaced intertrochanteric fracture of left femur, initial encounter for closed fracture - Current Meds Current Meds: Current Medications Generic Name Dose Route Start Last Admin Trade Name Freq PRN Reason Stop Dose Admin Lipase/Protease/Amylase 1 cap 04/17/23 12:00 04/17/23 14:16 Lipase/Protease/Amylase Capsule PO 1 cap TIDWM MODESTA Administration Apixaban 10 mg 04/17/23 10:15 04/17/23 10:18 Apixaban 5 Mg Tablet PO 10 mg BID MODESTA Administration Calcium Citrate 500 mg 04/16/23 22:00 04/17/23 14:16 Calcium Citrate 250 Mg Tablet PO 500 mg TID MODESTA Administration Cholecalciferol 50 mcg 04/17/23 09:00 04/17/23 10:19 Cholecalciferol 25 Mcg Tablet PO 50 mcg DAILY MODESTA Administration Cyanocobalamin 1,000 mcg 04/17/23 09:00 04/17/23 10:19 Cyanocobalamin 500 Mcg Tablet PO 1,000 mcg DAILY MODESTA Administration Diclofenac Sodium 50 gm 04/17/23 09:00 04/17/23 10:25 Diclofenac Sodium 1% Gel 50 Gm Tube TOP Not Given BID MODESTA Ferrous Sulfate 325 mg 04/17/23 08:00 04/17/23 10:18 Ferrous Sulfate 325 Mg Tablet PO 325 mg BIDWM MODESTA Administration Ceftriaxone Sodium 2 gm/ 100 mls @ 200 mls/hr 04/17/23 09:00 04/17/23 10:26 Sodium Chloride IV 200 mls/hr DAILY MODESTA Administration Sodium Chloride 1,000 mls @ 100 mls/hr 04/17/23 10:00 04/17/23 10:27 Normal Saline 0.9% IV 0 mls/hr .Q10H MODESTA Infusion Ketorolac Tromethamine 30 mg 04/17/23 13:00 04/17/23 13:16 Ketorolac 30 Mg/Ml Vial IVP 04/22/23 12:59 30 mg Q6HR PRN Administration Severe Pain (Level 7-10) Levothyroxine Sodium 100 mcg 04/17/23 07:00 04/17/23 06:19 Levothyroxine 100 Mcg Tablet PO 100 mcg QDAC MODESTA Administration Morphine Sulfate 2 mg 04/17/23 09:28 04/17/23 09:43 Morphine 2 Mg/Ml Carpuject IVP 2 mg Q4HR PRN Administration Pain 8 to 10 Nicotine 1 patch 04/17/23 00:05 04/17/23 10:19 Nicotine 7 Mg Patch TOP Not Given DAILY [facility] Oxycodone HCl 5 mg 04/16/23 23:47 04/16/23 23:55 Oxycodone 5 Mg Tablet PO 5 mg Q4HR PRN Administration Pain 5 to 7 Pantoprazole Sodium 40 mg 04/17/23 09:00 04/17/23 10:19 Pantoprazole 40 Mg Tablet PO 40 mg DAILY MODESTA Administration Sodium Chloride 10 ml 04/17/23 01:00 04/17/23 09:44 Sodium Chloride Flush 0.9% 10 Ml Syringe IVP 10 ml 0100,0900,1700 MODESTA Administration Thiamine HCl 100 mg 04/17/23 09:00 04/17/23 10:19 Thiamine 100 Mg Tablet PO 100 mg DAILY MODESTA Administration - Lab Result Fish Bone Diagrams: 04/16/23 12:53 04/16/23 12:53 - Additional Planning My Orders: My Active Orders 04/16/23 22:12 Tobacco Cessation [RC] .ONCE 04/17/23 Breakfast Regular Diet [DIET] 04/17/23 09:00 cefTRIAXone [Rocephin] 2 gm Sodium Chloride 0.9% Minibag [Normal Saline 0.9% Minibag] 100 ml IV DAILY 04/17/23 11:16 CUL, URINE [RM] Routine 04/17/23 13:00 Echo Transthoracic Complete [ECHO] Stat Ketorolac Inj (30Mg) [Toradol Inj (30Mg)] 30 mg IVP Q6HR PRN 04/18/23 Blood Culture [CULTURE, BLOOD #1] [RM] Routine 04/18/23 05:00 BMP - BASIC METABOLIC PANEL [CHEM] DAILYLAB CBC [CBC - COMP BLD CT W/AUTO DIFF] [HEME] DAILYLAB 04/19/23 05:00 BMP - BASIC METABOLIC PANEL [CHEM] DAILYLAB CBC [CBC - COMP BLD CT W/AUTO DIFF] [HEME] DAILYLAB 04/20/23 05:00 BMP - BASIC METABOLIC PANEL [CHEM] DAILYLAB CBC [CBC - COMP BLD CT W/AUTO DIFF] [HEME] DAILYLAB 04/21/23 05:00 BMP - BASIC METABOLIC PANEL [CHEM] DAILYLAB CBC [CBC - COMP BLD CT W/AUTO DIFF] [HEME] DAILYLAB 04/22/23 05:00 BMP - BASIC METABOLIC PANEL [CHEM] DAILYLAB CBC [CBC - COMP BLD CT W/AUTO DIFF] [HEME] DAILYLAB Subjective - Subjective Patient Reports: Feeling Better (Patient did have an episode of pleuritic chest pain which resolved with administration of IV Toradol.), Resting Comfortably Objective Vital Signs: Vital Signs - 24 hr 04/16/23 04/16/23 04/16/23 18:37 21:12 21:20 Temperature 36.3 C L Heart Rate 89 Heart Rate [ 90 Monitoring electrodes] Respiratory 20 18 Rate Blood Pressure 111/49 L Blood Pressure [Left Brachial artery] Blood Pressure 102/49 L [Right Brachial artery] O2 Saturation 96 99 If not protocol 89 89 : Oxygen Flow, liters/minute 04/16/23 04/17/23 23:30 12:49 Temperature 36.3 C L Heart Rate Heart Rate [ 91 121 H Monitoring electrodes] Respiratory 20 14 Rate Blood Pressure Blood Pressure 90/48 L [Left Brachial artery] Blood Pressure 94/47 L [Right Brachial artery] O2 Saturation 95 98 If not protocol : Oxygen Flow, liters/minute Oxygen O2 Source Room air I&O (Last 24 Hrs): Intake and Output Totals x24h 04/15/23 04/16/23 04/17/23 23:59 23:59 23:59 Intake Total 1999 Balance 1999 100 - Results Results: Laboratory Results WBC 7.2 x10^3/uL (4.8-10.8) 04/16/23 12:53 RBC 2.17 10^6/uL (4.20-5.40) L 04/16/23 12:53 Hgb 8.6 g/dL (12.0-16.0) L 04/16/23 12:53 Hct 26.4 % (37.0-47.0) L 04/16/23 12:53 MCV 121.7 fL (81.0-99.0) H 04/16/23 12:53 MCH 39.6 pg (27.0-31.0) H 04/16/23 12:53 MCHC 32.6 g/dL (32.0-36.0) 04/16/23 12:53 RDW 16.1 % (12.0-15.0) H 04/16/23 12:53 Plt Count 130 10^3/uL (130-450) 04/16/23 12:53 MPV 10.8 fL (7.9-10.8) 04/16/23 12:53 Neut # (Auto) Not Reportable 04/16/23 12:53 Lymph # (Auto) Not Reportable 04/16/23 12:53 [place] # (Auto) Not Reportable 04/16/23 12:53 Eos # (Auto) Not Reportable 04/16/23 12:53 Baso # (Auto) Not Reportable 04/16/23 12:53 Absolute Nucleated RBC Not Reportable 04/16/23 12:53 Total Counted 100 04/16/23 12:53 Band Neuts % (Manual) 4 % (0-10) 04/16/23 12:53 Reactive Lymphs % (Man) 2 % 04/16/23 12:53 Abnorm Lymph % (Manual) 0 % 04/16/23 12:53 Nucleated RBC % Not Reportable 04/16/23 12:53 Neutrophils # (Manual) 5.5 10^3/uL (1.5-6.6) 04/16/23 12:53 Lymphocytes # (Manual) 1.0 10^3/uL (1.5-3.5) L 04/16/23 12:53 Monocytes # (Manual) 0.6 10^3/uL (0.0-1.0) 04/16/23 12:53 Eosinophils # (Manual) 0.1 10^3/uL (0-0.7) 04/16/23 12:53 Basophils # (Manual) 0.0 10^3/uL (0-0.1) 04/16/23 12:53 Differential Comment MANUAL DIFFERENTIAL 04/16/23 12:53 Platelet Estimate NORMAL (130-450,000) (NORMAL) 04/16/23 12:53 RBC Morph Micro Appear 3+ ANISOCYTOSIS (NORMAL) 04/16/23 12:53 Sodium 140 mmol/L (135-145) 04/16/23 12:53 Potassium 3.0 mmol/L (3.5-4.5) L 04/16/23 12:53 Chloride 117 mmol/L (101-111) H 04/16/23 12:53 Carbon Dioxide 14 mmol/L (21-32) L 04/16/23 12:53 Anion Gap 9.0 (6-13) 04/16/23 12:53 BUN 15 mg/dL (6-20) 04/16/23 12:53 Creatinine 1.1 mg/dL (0.6-1.3) 04/16/23 12:53 Estimated GFR (MDRD) 50 (>89) L 04/16/23 12:53 Glucose 77 mg/dL (74-104) 04/16/23 12:53 Lactic Acid 0.6 mmol/L (0.5-2.2) 04/16/23 12:53 Calcium 7.9 mg/dL (8.5-10.3) L 04/16/23 12:53 Magnesium 1.9 mg/dL (1.7-2.3) 04/16/23 13:00 Total Bilirubin 0.7 mg/dL (0.2-1.0) 04/16/23 12:53 AST 225 IU/L (10-42) H 04/16/23 12:53 ALT 93 IU/L (10-60) H 04/16/23 12:53 Alkaline Phosphatase 225 IU/L (42-121) H 04/16/23 12:53 Troponin I High Sens 26.2 ng/L (2.3-14.8) H* 04/16/23 14:27 Total Protein 4.1 g/dL (6.4-8.9) L 04/16/23 12:53 Albumin 2.2 g/dL (3.2-5.5) L 04/16/23 12:53 Globulin 1.9 g/dL (2.1-4.2) L 04/16/23 12:53 Albumin/Globulin Ratio 1.2 (1.0-2.2) 04/16/23 12:53 Lipase < 10 U/L (11-82) L 04/16/23 12:53 Urine Color YELLOW 04/16/23 15:41 Urine Clarity HAZY (CLEAR) 04/16/23 15:41 Urine pH 6.0 PH (5.0-7.5) 04/16/23 15:41 Ur Specific [place] 1.020 (1.002-1.030) 04/16/23 15:41 Urine Protein TRACE mg/dL (NEGATIVE) 04/16/23 15:41 Urine Glucose (UA) NEGATIVE mg/dL (NEGATIVE) 04/16/23 15:41 Urine Ketones NEGATIVE mg/dL (NEGATIVE) 04/16/23 15:41 Urine Occult Blood NEGATIVE (NEGATIVE) 04/16/23 15:41 Urine Nitrite NEGATIVE (NEGATIVE) 04/16/23 15:41 Urine Bilirubin NEGATIVE (NEGATIVE) 04/16/23 15:41 Urine Urobilinogen 0.2 (NORMAL) E.U./dL (NORMAL) 04/16/23 15:41 Ur Leukocyte Esterase SMALL (NEGATIVE) H 04/16/23 15:41 Urine RBC None Seen /HPF (0-5) 04/16/23 15:41 Urine WBC 11-25 /HPF (0-5) H 04/16/23 15:41 Ur Squamous Epith Cells FEW Squamous (<= Few) 04/16/23 15:41 Urine Bacteria Many /HPF (None Seen) H 04/16/23 15:41 Ur Microscopic Review INDICATED 04/16/23 15:41 Urine Culture Comments INDICATED 04/16/23 15:41 Nasal Adenovirus (PCR) NOT DETECTED 04/16/23 12:46 Nasal B. parapertussis DNA (PCR) NOT DETECTED 04/16/23 12:46 Nasal Coronavir 229E PCR NOT DETECTED 04/16/23 12:46 Nasal Coronavir HKU1 PCR NOT DETECTED 04/16/23 12:46 Nasal Coronavir NL63 PCR NOT DETECTED 04/16/23 12:46 Nasal Coronavir OC43 PCR NOT DETECTED 04/16/23 12:46 Nasal Enterovir/Rhinovir PCR NOT DETECTED 04/16/23 12:46 Nasal Influenza B PCR NOT DETECTED 04/16/23 12:46 Nasal Influenza A PCR NOT DETECTED 04/16/23 12:46 Nasal Parainfluen 1 PCR NOT DETECTED 04/16/23 12:46 Nasal Parainfluen 2 PCR NOT DETECTED 04/16/23 12:46 Nasal Parainfluen 3 PCR NOT DETECTED 04/16/23 12:46 Nasal Parainfluen 4 PCR NOT DETECTED 04/16/23 12:46 Nasal RSV (PCR) NOT DETECTED 04/16/23 12:46 Nasal B.pertussis DNA PCR NOT DETECTED 04/16/23 12:46 Nasal C.pneumoniae (PCR) NOT DETECTED 04/16/23 12:46 Paresh Human Metapneumo PCR NOT DETECTED 04/16/23 12:46 Nasal M.pneumoniae (PCR) NOT DETECTED 04/16/23 12:46 Nasal SARS-CoV-2 (PCR) NOT DETECTED 04/16/23 12:46 Ethyl Alcohol < 10.0 mg/dL 04/16/23 14:27 - Procedures Procedures: Procedures REPOSITION LEFT UPPER FEMUR WITH INT FIX, OPEN APPROACH (03/05/23) ABX Reporting Has patient been on IV antibiotics over the past 48 hours?: No
[2023-04-17] MEDS: oxyCODONE 5 MG TABLET PO PRN (21:10)
[2023-04-18] MEDS: SODIUM CHLORIDE FLUSH 0.9% 10 ML SYRINGE IVP SCH ×3 (01:13→20:57)
[2023-04-18] MEDS: MORPHINE 2 MG/ML CARPUJECT IVP PRN (02:21)
[2023-04-18] MEDS: KETOROLAC 30 MG/ML VIAL IVP PRN ×3 (06:00→20:50)
[2023-04-18] MEDS: LEVOTHYROXINE 100 MCG TABLET PO SCH (06:01)
[2023-04-18] MEDS: CALCIUM CITRATE 250 MG TABLET PO SCH ×3 (06:01→20:53)
[2023-04-18] MEDS: SODIUM CHLORIDE 0.9% 1,000 ML IV SCH ×2 (06:01→18:21)
[2023-04-18 08:21] LABS: BASOPHILS # (AUTO) 0.1 10^3/uL (0.0-0.1); BASOPHILS % (AUTO) 0.6 %; EOSINOPHILS % (AUTO) 0.4 %; HCT - HEMATOCRIT 25.7 % (37.0-47.0); HGB - HEMOGLOBIN 7.9 g/dL (12.0-16.0); LYMPHOCYTES # (AUTO) 1.1 10^3/uL (1.5-3.5); MEAN CORPUSCULAR HEMOGLOBIN 40.1 pg (27.0-31.0); MEAN CORPUSCULAR HGB CONC 30.7 g/dL (32.0-36.0); MEAN CORPUSCULAR VOLUME 130.5 fL (81.0-99.0); MEAN PLATELET VOLUME 10.9 fL (7.9-10.8); MONOCYTES # (AUTO) 0.9 10^3/uL (0.0-1.0); MONOCYTES % (AUTO) 8.3 %; NEUTROPHILS # (AUTO) 8.5 10^3/uL (1.5-6.6); PLT - PLATELET COUNT 84 10^3/uL (130-450); RED BLOOD COUNT 1.97 10^6/uL (4.20-5.40); RED CELL DISTRIBUTION WIDTH 16.4 % (12.0-15.0); WHITE BLOOD COUNT 10.6 x10^3/uL (4.8-10.8)
[2023-04-18 08:54] LABS: CALCIUM 8.3 mg/dL (8.5-10.3); CREATININE 0.6 mg/dL (0.6-1.3); PLATELET ESTIMATE, MANUAL DECREASED (<130,000) (NORMAL); PLATELET MORPHOLOGY NORMAL APPEARANCE (NORMAL); POTASSIUM 3.4 mmol/L (3.5-4.5); RBC MORPHOLOGY (MULTIPLE) 2+ MACROCYTOSIS (NORMAL)
[2023-04-18 08:55] LABS: DIFFERENTIAL COMMENT MANUAL=AUTO DIFF; WBC MORPHOLOGY (MULTIPLE) NORMAL APPEARANCE (NORMAL)
[2023-04-18] MEDS ORDERED: POTASSIUM BICARB 25 MEQ TABLET PO ONE (09:05)
[2023-04-18] MEDS: PANTOPRAZOLE 40 MG TABLET PO SCH (09:35)
[2023-04-18] MEDS: LIPASE/PROTEASE/AMYLASE CAPSULE PO SCH ×2 (09:35→18:17)
[2023-04-18] MEDS: CHOLECALCIFEROL 25 MCG TABLET PO SCH (09:35)
[2023-04-18] MEDS: CYANOCOBALAMIN 500 MCG TABLET PO SCH (09:36)
[2023-04-18] MEDS: APIXABAN 5 MG TABLET PO SCH ×3 (09:36→20:50)
[2023-04-18] MEDS: THIAMINE 100 MG TABLET PO SCH (09:37)
[2023-04-18] MEDS: FERROUS SULFATE 325 MG TABLET PO SCH ×2 (09:37→20:50)
[2023-04-18] MEDS: cefTRIAXone 2 GM in SODIUM CHLORIDE 0.9% MINIBAG 100 ML IV SCH (09:54)
[2023-04-18] MEDS: SODIUM BICARBONATE 150 MEQ in DEXTROSE 5% 1,000 ML IV SCH ×2 (11:10→23:05)
[2023-04-18] MEDS ORDERED: APIXABAN 5 MG TABLET PO SCH (11:57)
[2023-04-18] MEDS ORDERED: fentaNYL 100 MCG/2 ML VIAL IVP PRN (13:10)
--- NOTE | 2023-04-18 13:36 | PHARMACY PROGRESS NOTE ---
- Best Possible Medication History Admit Date and Time: 04/16/232033 Processed by: Pharmacy Medication History completed: Yes Patient Interview: Completed Secondary Source(s): Insurance records As the person ultimately responsible for medication therapy, providers are able to order a medication from an existing home medication list in [facility] via the "Reconcile Routine" prior to Confirmation of that medication by postal support employee. Such practice is discouraged except when the physician, in their clinical judgment, deems that a medical need exists for a medication without regard to previous use.
--- NOTE | 2023-04-18 14:31 | PROVIDER PROGRESS NOTE ---
Assessment/Plan - Problem List (1) Bacteremia Assessment/Plan: -- Blood cultures preliminarily showing E. coli. Urine cultures revealed Citrobacter Freundii she is currently being covered with IV ceftriaxone. -- Repeat blood cultures have been ordered to ensure resolution of infection. However patient has been refusing blood draws. (2) Pulmonary embolism Assessment/Plan: --CTA chest showing evidence of subsegmental PE with wedge-shaped infarc. This was discussed with master motorcycle technician at [facility] and suggest that the PE was too small for any intervention. She was admitted and started on Eliquis 10 mg twice daily. -- In discussion with pharmacy, will start patient on Eliquis 5 mg twice daily as she is having worsening anemia. This is likely due to bone marrow suppression from her history of alcohol use and malnutrition. There is been no evidence of bleeding. -- TTE was performed on 04/18. There is no evidence of any RV strain. 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 Continue home B12 medications. -- Hemoglobin did drop from 8.6-7.9. We will decrease dose of Eliquis to 5 mg twice daily. -- We will obtain iron, folate, B12. (4) Fall from ground level Assessment/Plan: --X-ray of her left hip is currently pending. She did have prior surgery on this hip for which she was admitted in February. (5) Intertrochanteric fracture Qualifiers: Encounter type: initial encounter Fracture type: closed Fracture alignment: nondisplaced Laterality: left Qualified Code(s): S72.145A - Nondisplaced intertrochanteric fracture of left femur, initial encounter for closed fracture Assessment/Plan: --Patient did have a hip fracture which required surgery in February. This was likely the provoking incident resulting in her current PE. (6) Metabolic acidosis Assessment/Plan: --Exact etiology of her metabolic acidosis is unclear. We were unable to get an ABG due to patient refusal. -- Started on IV bicarbonate infusion. Repeat BMP in AM. -- She is not having any diarrhea to suggest loss of bicarbonate. - Current Meds Current Meds: Current Medications Generic Name Dose Route Start Last Admin Trade Name Freq PRN Reason Stop Dose Admin Calcium Citrate 500 mg 04/16/23 22:00 04/18/23 06:01 Calcium Citrate 250 Mg Tablet PO 500 mg TID MODESTA Administration Cholecalciferol 50 mcg 04/17/23 09:00 04/18/23 09:35 Cholecalciferol 25 Mcg Tablet PO Not Given DAILY [facility]STA Cyanocobalamin 1,000 mcg 04/17/23 09:00 04/18/23 09:36 Cyanocobalamin 500 Mcg Tablet PO Not Given DAILY [facility] Diclofenac Sodium 50 gm 04/17/23 09:00 04/17/23 21:10 Diclofenac Sodium 1% Gel 50 Gm Tube TOP Not Given BID MODESTA Ceftriaxone Sodium 2 gm/ 100 mls @ 200 mls/hr 04/17/23 09:00 04/18/23 09:54 Sodium Chloride IV 200 mls/hr DAILY MODESTA Administration Sodium Chloride 1,000 mls @ 100 mls/hr 04/17/23 10:00 04/18/23 06:01 Normal Saline 0.9% IV 100 mls/hr .Q10H MODESTA Administration Sodium Bicarbonate 150 meq/ 1,150 mls @ 100 mls/hr 04/18/23 10:00 04/18/23 11:10 Dextrose IV 04/18/23 21:59 100 mls/hr .[id number] MODESTA Administration Ketorolac Tromethamine 30 mg 04/17/23 13:00 04/18/23 12:26 Ketorolac 30 Mg/Ml Vial IVP 04/22/23 12:59 30 mg Q6HR PRN Administration Severe Pain (Level 7-10) Levothyroxine Sodium 100 mcg 04/17/23 07:00 04/18/23 06:01 Levothyroxine 100 Mcg Tablet PO 100 mcg QDAC MODESTA Administration Nicotine 1 patch 04/17/23 00:05 04/17/23 10:19 Nicotine 7 Mg Patch TOP Not Given DAILY [facility] Pantoprazole Sodium 40 mg 04/17/23 09:00 04/18/23 09:35 Pantoprazole 40 Mg Tablet PO Not Given DAILY [facility] Sodium Chloride 10 ml 04/17/23 01:00 04/18/23 01:13 Sodium Chloride Flush 0.9% 10 Ml Syringe IVP 10 ml 0100,0900,1700 MODESTA Administration Thiamine HCl 100 mg 04/17/23 09:00 04/18/23 09:37 Thiamine 100 Mg Tablet PO Not Given DAILY MODESTA - Lab Result Fish Bone Diagrams: 04/18/23 08:07 04/18/23 08:07 - Diagnostic Imaging Results Diagnostic Imaging Results: Final report reviewed - Additional Planning My Orders: My Active Orders 04/17/23 16:46 Telemetry (24 Hour) [RC] Q4HR 04/18/23 Home Health Referral [CONS] Routine 04/18/23 08:14 Blood Culture [CULTURE, BLOOD #1] [RM] Routine 04/18/23 09:04 RT - Obtain Arterial Specimen [RC] .ONCE ABG - ARTERIAL BLOOD GAS [BG] Stat 04/18/23 10:00 Dextrose 5% [D5w] 1,000 ml Sodium Bicarbonate 150 meq IV 100 mls/hr 04/18/23 13:09 HYDROcod/ACETAM 5/325 [Starke 5/325] 1 tab PO Q4HR PRN 04/18/23 13:10 fentaNYL 25 mcg IVP Q2HR PRN 04/18/23 17:00 Lipase/Protease/Amylase [Pancrelipase Dr 5,000/17,000/24,000 Shelter] 2 cap PO TIDWM 04/18/23 21:00 Ferrous Sulfate [Feosol] 325 mg PO BID 04/19/23 05:00 BMP - BASIC METABOLIC PANEL [CHEM] DAILYLAB CBC [CBC - COMP BLD CT W/AUTO DIFF] [HEME] DAILYLAB 04/19/23 09:00 Pantoprazole [Protonix] 40 mg PO DAILY 04/20/23 05:00 BMP - BASIC METABOLIC PANEL [CHEM] DAILYLAB CBC [CBC - COMP BLD CT W/AUTO DIFF] [HEME] DAILYLAB 04/21/23 05:00 BMP - BASIC METABOLIC PANEL [CHEM] DAILYLAB CBC [CBC - COMP BLD CT W/AUTO DIFF] [HEME] DAILYLAB 04/22/23 05:00 BMP - BASIC METABOLIC PANEL [CHEM] DAILYLAB CBC [CBC - COMP BLD CT W/AUTO DIFF] [HEME] DAILYLAB Subjective - Subjective Patient Reports: No Complaints (Patient is a very flat affect. She has been ongoing to participate with PT/OT. She often refuses lab draws. She has no acute complaints.) Objective Vital Signs: Vital Signs - 24 hr 04/17/23 04/17/23 04/17/23 16:00 20:00 23:43 Temperature 36.2 C L 36.5 C 36.8 C Heart Rate [ Brachial] Heart Rate [ 121 H 92 98 Monitoring electrodes] Respiratory 12 20 16 Rate Blood Pressure 102/47 L [Left Brachial artery] Blood Pressure 90/50 L 106/48 L [Right Brachial artery] O2 Saturation 98 99 04/18/23 04/18/23 04/18/23 02:20 04:10 08:00 Temperature 36.7 C Heart Rate [ 99 Brachial] Heart Rate [ 110 H Monitoring electrodes] Respiratory 20 14 Rate Blood Pressure [Left Brachial artery] Blood Pressure 104/54 L 102/58 L 98/52 L [Right Brachial artery] O2 Saturation 98 92 Oxygen O2 Source Room air I&O (Last 24 Hrs): Intake and Output Totals x24h 04/16/23 04/17/23 04/18/23 23:59 23:59 23:59 Intake Total 1999 800 1565 Output Total 50 460 Balance 1999 750 1105 General: Alert, Oriented x3, Cooperative, No acute distress HEENT: Atraumatic, PERRLA, EOMI Neck: Supple, No JVD, No thyromegaly, +2 carotid pulse wo bruit, No LAD Lymphatic: no adenopathy Neuro: Alert, CN 2-12 Grossly Intact, Oriented Times 3 Cardiovascular: Regular rate, Normal S1, Normal S2, No murmurs Respiratory: Chest non-tender, No respiratory distress, Breath sounds nml Abdomen: Normal bowel sounds, Soft, No tenderness, No hepatospenomegaly, No masses Genitourinary: Normal External, No Bleeding, No Discharge, No Tenderness, No Adnexal Mass Rectal: Non-Tender Extremities: No clubbing, No cyanosis, No edema, Normal pulses, No tenderness/ swelling Skin: No rashes, No breakdown, No significant lesion - Results Results: Laboratory Results WBC 10.6 x10^3/uL (4.8-10.8) 04/18/23 08:07 RBC 1.97 10^6/uL (4.20-5.40) L 04/18/23 08:07 Hgb 7.9 g/dL (12.0-16.0) L 04/18/23 08:07 Hct 25.7 % (37.0-47.0) L 04/18/23 08:07 MCV 130.5 fL (81.0-99.0) H 04/18/23 08:07 MCH 40.1 pg (27.0-31.0) H 04/18/23 08:07 MCHC 30.7 g/dL (32.0-36.0) L 04/18/23 08:07 RDW 16.4 % (12.0-15.0) H 04/18/23 08:07 Plt Count 84 10^3/uL (130-450) L 04/18/23 08:07 MPV 10.9 fL (7.9-10.8) H 04/18/23 08:07 Neut # (Auto) 8.5 10^3/uL (1.5-6.6) H 04/18/23 08:07 Lymph # (Auto) 1.1 10^3/uL (1.5-3.5) L 04/18/23 08:07 [place] # (Auto) 0.9 10^3/uL (0.0-1.0) 04/18/23 08:07 Eos # (Auto) 0.0 10^3/uL (0.0-0.7) 04/18/23 08:07 Baso # (Auto) 0.1 10^3/uL (0.0-0.1) 04/18/23 08:07 Absolute Nucleated RBC 0.00 x10^3/uL 04/18/23 08:07 Total Counted 100 04/16/23 12:53 Band Neuts % (Manual) Not Reportable 04/18/23 08:07 Reactive Lymphs % (Man) 2 % 04/16/23 12:53 Abnorm Lymph % (Manual) Not Reportable 04/18/23 08:07 Nucleated RBC % 0.0 /100WBC 04/18/23 08:07 Neutrophils # (Manual) Not Reportable 04/18/23 08:07 Lymphocytes # (Manual) Not Reportable 04/18/23 08:07 Monocytes # (Manual) Not Reportable 04/18/23 08:07 Eosinophils # (Manual) Not Reportable 04/18/23 08:07 Basophils # (Manual) Not Reportable 04/18/23 08:07 Differential Comment MANUAL=AUTO DIFF 04/18/23 08:07 WBC Morphology NORMAL APPEARANCE (NORMAL) 04/18/23 08:07 Platelet Estimate DECREASED (<130,000) (NORMAL) 04/18/23 08:07 Platelet Morphology NORMAL APPEARANCE (NORMAL) 04/18/23 08:07 RBC Morph Micro Appear 2+ MACROCYTOSIS (NORMAL) 04/18/23 08:07 Sodium 138 mmol/L (135-145) 04/18/23 08:07 Potassium 3.4 mmol/L (3.5-4.5) L 04/18/23 08:07 Chloride 121 mmol/L (101-111) H* 04/18/23 08:07 Carbon Dioxide 12 mmol/L (21-32) L* 04/18/23 08:07 Anion Gap 5.0 (6-13) L 04/18/23 08:07 BUN 8 mg/dL (6-20) 04/18/23 08:07 Creatinine 0.6 mg/dL (0.6-1.3) 04/18/23 08:07 Estimated GFR (MDRD) 100 (>89) 04/18/23 08:07 Glucose 140 mg/dL (74-104) H 04/18/23 08:07 Lactic Acid 0.6 mmol/L (0.5-2.2) 04/16/23 12:53 Calcium 8.3 mg/dL (8.5-10.3) L 04/18/23 08:07 Magnesium 1.9 mg/dL (1.7-2.3) 04/16/23 13:00 Total Bilirubin 0.7 mg/dL (0.2-1.0) 04/16/23 12:53 AST 225 IU/L (10-42) H 04/16/23 12:53 ALT 93 IU/L (10-60) H 04/16/23 12:53 Alkaline Phosphatase 225 IU/L (42-121) H 04/16/23 12:53 Troponin I High Sens 26.2 ng/L (2.3-14.8) H* 04/16/23 14:27 Total Protein 4.1 g/dL (6.4-8.9) L 04/16/23 12:53 Albumin 2.2 g/dL (3.2-5.5) L 04/16/23 12:53 Globulin 1.9 g/dL (2.1-4.2) L 04/16/23 12:53 Albumin/Globulin Ratio 1.2 (1.0-2.2) 04/16/23 12:53 Lipase < 10 U/L (11-82) L 04/16/23 12:53 Urine Color YELLOW 04/16/23 15:41 Urine Clarity HAZY (CLEAR) 04/16/23 15:41 Urine pH 6.0 PH (5.0-7.5) 04/16/23 15:41 Ur Specific [place] 1.020 (1.002-1.030) 04/16/23 15:41 Urine Protein TRACE mg/dL (NEGATIVE) 04/16/23 15:41 Urine Glucose (UA) NEGATIVE mg/dL (NEGATIVE) 04/16/23 15:41 Urine Ketones NEGATIVE mg/dL (NEGATIVE) 04/16/23 15:41 Urine Occult Blood NEGATIVE (NEGATIVE) 04/16/23 15:41 Urine Nitrite NEGATIVE (NEGATIVE) 04/16/23 15:41 Urine Bilirubin NEGATIVE (NEGATIVE) 04/16/23 15:41 Urine Urobilinogen 0.2 (NORMAL) E.U./dL (NORMAL) 04/16/23 15:41 Ur Leukocyte Esterase SMALL (NEGATIVE) H 04/16/23 15:41 Urine RBC None Seen /HPF (0-5) 04/16/23 15:41 Urine WBC 11-25 /HPF (0-5) H 04/16/23 15:41 Ur Squamous Epith Cells FEW Squamous (<= Few) 04/16/23 15:41 Urine Bacteria Many /HPF (None Seen) H 04/16/23 15:41 Ur Microscopic Review INDICATED 04/16/23 15:41 Urine Culture Comments INDICATED 04/16/23 15:41 Nasal Adenovirus (PCR) NOT DETECTED 04/16/23 12:46 Nasal B. parapertussis DNA (PCR) NOT DETECTED 04/16/23 12:46 Nasal Coronavir 229E PCR NOT DETECTED 04/16/23 12:46 Nasal Coronavir HKU1 PCR NOT DETECTED 04/16/23 12:46 Nasal Coronavir NL63 PCR NOT DETECTED 04/16/23 12:46 Nasal Coronavir OC43 PCR NOT DETECTED 04/16/23 12:46 Nasal Enterovir/Rhinovir PCR NOT DETECTED 04/16/23 12:46 Nasal Influenza B PCR NOT DETECTED 04/16/23 12:46 Nasal Influenza A PCR NOT DETECTED 04/16/23 12:46 Nasal Parainfluen 1 PCR NOT DETECTED 04/16/23 12:46 Nasal Parainfluen 2 PCR NOT DETECTED 04/16/23 12:46 Nasal Parainfluen 3 PCR NOT DETECTED 04/16/23 12:46 Nasal Parainfluen 4 PCR NOT DETECTED 04/16/23 12:46 Nasal RSV (PCR) NOT DETECTED 04/16/23 12:46 Nasal B.pertussis DNA PCR NOT DETECTED 04/16/23 12:46 Nasal C.pneumoniae (PCR) NOT DETECTED 04/16/23 12:46 Paresh Human Metapneumo PCR NOT DETECTED 04/16/23 12:46 Nasal M.pneumoniae (PCR) NOT DETECTED 04/16/23 12:46 Nasal SARS-CoV-2 (PCR) NOT DETECTED 04/16/23 12:46 Ethyl Alcohol < 10.0 mg/dL 04/16/23 14:27 - Procedures Procedures: Procedures REPOSITION LEFT UPPER FEMUR WITH INT FIX, OPEN APPROACH (03/05/23) Sepsis Event Note (H) - Evaluation Current Stage of Sepsis: Ruled out Current Medications - Current Medications Current Medications: Current Medications Generic Name Dose Route Start Last Admin Trade Name Freq PRN Reason Stop Dose Admin Apixaban 5 mg 04/18/23 14:30 04/18/23 12:25 Apixaban 5 Mg Tablet PO 5 mg BID MODESTA Administration Calcium Citrate 500 mg 04/16/23 22:00 04/18/23 06:01 Calcium Citrate 250 Mg Tablet PO 500 mg TID MODESTA Administration Cholecalciferol 50 mcg 04/17/23 09:00 04/18/23 09:35 Cholecalciferol 25 Mcg Tablet PO Not Given DAILY [facility] Cyanocobalamin 1,000 mcg 04/17/23 09:00 04/18/23 09:36 Cyanocobalamin 500 Mcg Tablet PO Not Given DAILY [facility] Diclofenac Sodium 50 gm 04/17/23 09:00 04/17/23 21:10 Diclofenac Sodium 1% Gel 50 Gm Tube TOP Not Given BID MODESTA Ceftriaxone Sodium 2 gm/ 100 mls @ 200 mls/hr 04/17/23 09:00 04/18/23 09:54 Sodium Chloride IV 200 mls/hr DAILY MODESTA Administration Sodium Chloride 1,000 mls @ 100 mls/hr 04/17/23 10:00 04/18/23 06:01 Normal Saline 0.9% IV 100 mls/hr .Q10H MODESTA Administration Sodium Bicarbonate 150 meq/ 1,150 mls @ 100 mls/hr 04/18/23 10:00 04/18/23 11:10 Dextrose IV 04/18/23 21:59 100 mls/hr .[id number] MODESTA Administration Ketorolac Tromethamine 30 mg 04/17/23 13:00 04/18/23 12:26 Ketorolac 30 Mg/Ml Vial IVP 04/22/23 12:59 30 mg Q6HR PRN Administration Severe Pain (Level 7-10) Levothyroxine Sodium 100 mcg 04/17/23 07:00 04/18/23 06:01 Levothyroxine 100 Mcg Tablet PO 100 mcg QDAC MODESTA Administration Nicotine 1 patch 04/17/23 00:05 04/17/23 10:19 Nicotine 7 Mg Patch TOP Not Given DAILY [facility] Pantoprazole Sodium 40 mg 04/17/23 09:00 04/18/23 09:35 Pantoprazole 40 Mg Tablet PO Not Given DAILY [facility] Sodium Chloride 10 ml 04/17/23 01:00 04/18/23 01:13 Sodium Chloride Flush 0.9% 10 Ml Syringe IVP 10 ml 0100,0900,1700 MODESTA Administration Thiamine HCl 100 mg 04/17/23 09:00 04/18/23 09:37 Thiamine 100 Mg Tablet PO Not Given DAILY [facility]
[2023-04-18] MEDS: DICLOFENAC SODIUM 1% GEL 50 GM TUBE TOP SCH ×2 (15:26→20:52)
[2023-04-18] MEDS: NICOTINE 7 MG PATCH TOP SCH (15:31)
--- NOTE | 2023-04-18 15:42 | XRAY Report ---
PROCEDURE: Pelvis 1 View INDICATIONS: Fall, hx of fracture on that side. TECHNIQUE: 1 view(s) of the pelvis acquired. COMPARISON: Pelvis x-ray 03/06/2023. FINDINGS: Bones: Status post fixation of left intertrochanteric fracture. The hardware appears intact without surrounding lucency. No suspicious bony lesions. Soft tissues: Visualized bowel gas pattern is normal. No suspicious soft tissue calcifications. IMPRESSION: Status post left hip ORIF without evidence of complication. Reviewed by: Migue Urbano MD on 04/18/2023 3:41 PM PST Approved by: Migue Urbano MD on 04/18/2023 3:41 PM PST Station ID: [id number]
[2023-04-18] MEDS: HYDROcod/ACETAM 5/325 MG TABLET PO PRN (20:56)
[2023-04-19] MEDS: SODIUM CHLORIDE FLUSH 0.9% 10 ML SYRINGE IVP SCH ×4 (05:31→23:49)
[2023-04-19] MEDS: SODIUM CHLORIDE 0.9% 1,000 ML IV SCH (06:47)
[2023-04-19] MEDS: LEVOTHYROXINE 100 MCG TABLET PO SCH (06:47)
[2023-04-19] MEDS: CALCIUM CITRATE 250 MG TABLET PO SCH ×3 (06:47→22:43)
[2023-04-19 07:10] LABS: ADENOVIRUS F 40/41 Not Detected (Not Detected); ASTROVIRUS Not Detected (Not Detected); C DIFFICILE TOXIN A/B Not Detected (Not Detected); CAMPYLOBACTER Not Detected (Not Detected); CRYPTOSPORIDIUM Not Detected (Not Detected); CYCLOSPORA CAYETANENSIS Not Detected (Not Detected); ENTAMOEBA HISTOLYTICA Not Detected (Not Detected); ENTEROAGGREGATIVE E COLI Not Detected (Not Detected); ENTEROPATHOGENIC E COLI Not Detected (Not Detected); ENTEROTOXIGENIC E COLI Not Detected (Not Detected); GIARDIA LAMBLIA Not Detected (Not Detected); NOROVIRUS GI/GII Not Detected (Not Detected); PLESIOMONAS SHIGELLOIDES Not Detected (Not Detected); ROTAVIRUS A Not Detected (Not Detected); SALMONELLA Not Detected (Not Detected); SAPOVIRUS Not Detected (Not Detected); SHIGA-TOXIN-PRODUCING E COLI Not Detected (Not Detected); SHIGELLA/ENTEROINVASIVE E COLI Not Detected (Not Detected); VIBRIO Not Detected (Not Detected); VIBRIO CHOLERAE Not Detected (Not Detected); YERSINIA ENTEROCOLITICA Not Detected (Not Detected)
[2023-04-19] MEDS ORDERED: PANTOPRAZOLE 40 MG TABLET PO SCH (09:00)
[2023-04-19 10:11] LABS: BASOPHILS # (AUTO) 0.1 10^3/uL (0.0-0.1); BASOPHILS % (AUTO) 0.4 %; EOSINOPHILS % (AUTO) 0.3 %; HGB - HEMOGLOBIN 8.7 g/dL (12.0-16.0); LYMPHOCYTES # (AUTO) 1.2 10^3/uL (1.5-3.5); LYMPHOCYTES % (AUTO) 9.8 %; MEAN CORPUSCULAR HEMOGLOBIN 38.7 pg (27.0-31.0); MEAN CORPUSCULAR HGB CONC 32.2 g/dL (32.0-36.0); MONOCYTES # (AUTO) 0.8 10^3/uL (0.0-1.0); MONOCYTES % (AUTO) 6.4 %; NEUTROPHILS # (AUTO) 10.3 10^3/uL (1.5-6.6); NEUTROPHILS % (AUTO) 81.9 %; PLT - PLATELET COUNT 69 10^3/uL (130-450); RED BLOOD COUNT 2.25 10^6/uL (4.20-5.40); RED CELL DISTRIBUTION WIDTH 15.7 % (12.0-15.0); WHITE BLOOD COUNT 12.5 x10^3/uL (4.8-10.8)
[2023-04-19 10:14] LABS: SLIDE REVIEW? Indicated
[2023-04-19] MEDS: NICOTINE 7 MG PATCH TOP SCH (10:17)
[2023-04-19] MEDS: DICLOFENAC SODIUM 1% GEL 50 GM TUBE TOP SCH ×2 (10:18→20:46)
[2023-04-19 10:24] LABS: CALCIUM 8.7 mg/dL (8.5-10.3); CREATININE 0.6 mg/dL (0.6-1.3); POTASSIUM 3.3 mmol/L (3.5-4.5)
[2023-04-19 10:35] LABS: PLATELET ESTIMATE, MANUAL DECREASED (<130,000) (NORMAL)
[2023-04-19 10:36] LABS: WBC MORPHOLOGY (MULTIPLE) NORMAL APPEARANCE (NORMAL)
[2023-04-19 10:37] LABS: IRON 31 ug/dL (50-212); TRANSFERRIN < 75 mg/dL (203-362)
[2023-04-19] MEDS: LIPASE/PROTEASE/AMYLASE CAPSULE PO SCH ×3 (10:37→17:33)
--- NOTE | 2023-04-19 11:01 | PROVIDER PROGRESS NOTE ---
Assessment/Plan - Problem List (1) Bacteremia Assessment/Plan: -- Blood cultures preliminarily showing E. coli. Urine cultures revealed Citrobacter Freundii she is currently being covered with IV ceftriaxone. -- Repeat blood cultures have been ordered to ensure resolution of infection. However patient has been refusing blood draws. I did ask her today if we can draw blood and she was agreeable. (2) Pulmonary embolism Assessment/Plan: --CTA chest showing evidence of subsegmental PE with wedge-shaped infarc. This was discussed with electronic intelligence officer at [facility] and suggest that the PE was too small for any intervention. She was admitted and started on Eliquis 10 mg twice daily. -- In discussion with pharmacy, will start patient on Eliquis 5 mg twice daily as she is having worsening anemia. This is likely due to bone marrow suppression from her history of alcohol use and malnutrition. There is been no evidence of bleeding. -- TTE was performed on 04/18. There is no evidence of any RV strain. 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 Continue home B12 medications. -- Hemoglobin did drop from 8.6-7.9. We will decrease dose of Eliquis to 5 mg twice daily. -- We will obtain iron, folate, B12 if she allows us to draw blood. (4) Fall from ground level Assessment/Plan: --Negative for ORIF complication on XR (5) Intertrochanteric fracture Qualifiers: Encounter type: initial encounter Fracture type: closed Fracture alignment: nondisplaced Laterality: left Qualified Code(s): S72.145A - Nondisplaced intertrochanteric fracture of left femur, initial encounter for closed fracture (6) Metabolic acidosis Assessment/Plan: --Exact etiology of her metabolic acidosis is unclear. We were unable to get an ABG due to patient refusal. -- Received bicarbonate overnight. I have stopped the infusion and ordered a BMP after encouraging her to let us draw blood. -- She is not having any diarrhea to suggest loss of bicarbonate. - Current Meds Current Meds: Current Medications Generic Name Dose Route Start Last Admin Trade Name Freq PRN Reason Stop Dose Admin Hydrocodone Bitart/Acetaminophen 1 tab 04/18/23 13:09 04/18/23 20:56 Hydrocod/Acetam 5/325 Mg Tablet PO 1 tab Q4HR PRN Administration Moderate Pain (Level 4-6) Lipase/Protease/Amylase 2 cap 04/18/23 17:00 04/19/23 10:37 Lipase/Protease/Amylase Capsule PO Not Given TIDWM MODESTA Apixaban 5 mg 04/18/23 14:30 04/18/23 20:50 Apixaban 5 Mg Tablet PO 5 mg BID MODESTA Administration Calcium Citrate 500 mg 04/16/23 22:00 04/19/23 06:47 Calcium Citrate 250 Mg Tablet PO Not Given TID MODESTA Cholecalciferol 50 mcg 04/17/23 09:00 04/18/23 09:35 Cholecalciferol 25 Mcg Tablet PO Not Given DAILY [facility] Cyanocobalamin 1,000 mcg 04/17/23 09:00 04/18/23 09:36 Cyanocobalamin 500 Mcg Tablet PO Not Given DAILY [facility] Diclofenac Sodium 50 gm 04/17/23 09:00 04/19/23 10:18 Diclofenac Sodium 1% Gel 50 Gm Tube TOP Not Given BID [facility] Ferrous Sulfate 325 mg 04/18/23 21:00 04/18/23 20:50 Ferrous Sulfate 325 Mg Tablet PO 325 mg BID [facility] Administration Ceftriaxone Sodium 2 gm/ 100 mls @ 200 mls/hr 04/17/23 09:00 04/18/23 10:24 Sodium Chloride IV Infused DAILY [facility] Infusion Ketorolac Tromethamine 30 mg 04/17/23 13:00 04/18/23 20:50 Ketorolac 30 Mg/Ml Vial IVP 04/22/23 12:59 30 mg Q6HR PRN Administration Severe Pain (Level 7-10) Levothyroxine Sodium 100 mcg 04/17/23 07:00 04/19/23 06:47 Levothyroxine 100 Mcg Tablet PO Not Given QDAC [facility] Nicotine 1 patch 04/17/23 00:05 04/19/23 10:17 Nicotine 7 Mg Patch TOP Not Given DAILY [facility] Pantoprazole Sodium 40 mg 04/17/23 09:00 04/18/23 09:35 Pantoprazole 40 Mg Tablet PO Not Given DAILY [facility] Pantoprazole Sodium 40 mg 04/19/23 09:00 04/19/23 10:17 Pantoprazole 40 Mg Tablet PO Not Given DAILY [facility] Sodium Chloride 10 ml 04/17/23 01:00 04/19/23 05:31 Sodium Chloride Flush 0.9% 10 Ml Syringe IVP Not Given 0100,0900,1700 MODESTA Thiamine HCl 100 mg 04/17/23 09:00 04/18/23 09:37 Thiamine 100 Mg Tablet PO Not Given DAILY MODESTA - Lab Result Fish Bone Diagrams: 04/19/23 09:58 04/19/23 09:58 - Additional Planning My Orders: My Active Orders 04/18/23 13:09 HYDROcod/ACETAM 5/325 [[place] 5/325] 1 tab PO Q4HR PRN 04/18/23 13:10 fentaNYL 25 mcg IVP Q2HR PRN 04/18/23 17:00 Lipase/Protease/Amylase [Pancrelipase Dr 5,000/17,000/24,000 Half-Way] 2 cap PO TIDWM 04/18/23 21:00 Ferrous Sulfate [Feosol] 325 mg PO BID 04/19/23 09:00 Pantoprazole [Protonix] 40 mg PO DAILY 04/19/23 09:58 CULTURE, BLOOD #1 [RM] Routine FOLATE [CHEM] DAILY IRON TIBC PANEL [CHEM] DAILY VITAMIN B12 [CHEM] DAILY 04/20/23 05:00 BMP - BASIC METABOLIC PANEL [CHEM] DAILYLAB CBC [CBC - COMP BLD CT W/AUTO DIFF] [HEME] DAILYLAB 04/21/23 05:00 BMP - BASIC METABOLIC PANEL [CHEM] DAILYLAB CBC [CBC - COMP BLD CT W/AUTO DIFF] [HEME] DAILYLAB 04/22/23 05:00 BMP - BASIC METABOLIC PANEL [CHEM] DAILYLAB CBC [CBC - COMP BLD CT W/AUTO DIFF] [HEME] DAILYLAB Subjective - Subjective Patient Reports: No Complaints (I encouraged her to allow us to draw blood.) Objective Vital Signs: Vital Signs - 24 hr 04/18/23 04/18/23 04/18/23 20:24 21:12 23:33 Temperature 36.6 C 36.6 C 36.6 C Heart Rate [ 110 H 128 H Brachial] Heart Rate [ 112 H Monitoring electrodes] Respiratory 20 20 20 Rate Blood Pressure 116/66 113/74 108/61 [Right Brachial artery] O2 Saturation 97 99 98 04/19/23 04/19/23 04:30 08:37 Temperature 36.4 C L 36.3 C L Heart Rate [ 99 109 H Brachial] Heart Rate [ Monitoring electrodes] Respiratory 20 24 Rate Blood Pressure 112/73 126/66 [Right Brachial artery] O2 Saturation 99 96 Oxygen O2 Source Room air I&O (Last 24 Hrs): Intake and Output Totals x24h 04/17/23 04/18/23 04/19/23 23:59 23:59 23:59 Intake Total 800 3116 Output Total 50 460 Balance 750 2656 General: Alert, Oriented x3, No acute distress Neuro: Alert, CN 2-12 Grossly Intact, Oriented Times 3 Cardiovascular: Regular rate (Very flat affect.), Normal S1, Normal S2, No murmurs Respiratory: Chest non-tender, No respiratory distress, Breath sounds nml Abdomen: Normal bowel sounds, Soft, No tenderness, No hepatospenomegaly, No masses - Results Results: Laboratory Results WBC 12.5 x10^3/uL (4.8-10.8) H 04/19/23 09:58 RBC 2.25 10^6/uL (4.20-5.40) L 04/19/23 09:58 Hgb 8.7 g/dL (12.0-16.0) L 04/19/23 09:58 Hct 27.0 % (37.0-47.0) L 04/19/23 09:58 MCV 120.0 fL (81.0-99.0) H 04/19/23 09:58 MCH 38.7 pg (27.0-31.0) H 04/19/23 09:58 MCHC 32.2 g/dL (32.0-36.0) 04/19/23 09:58 RDW 15.7 % (12.0-15.0) H 04/19/23 09:58 Plt Count 69 10^3/uL (130-450) L 04/19/23 09:58 MPV 12.0 fL (7.9-10.8) H 04/19/23 09:58 Neut # (Auto) 10.3 10^3/uL (1.5-6.6) H 04/19/23 09:58 Lymph # (Auto) 1.2 10^3/uL (1.5-3.5) L 04/19/23 09:58 [place] # (Auto) 0.8 10^3/uL (0.0-1.0) 04/19/23 09:58 Eos # (Auto) 0.0 10^3/uL (0.0-0.7) 04/19/23 09:58 Baso # (Auto) 0.1 10^3/uL (0.0-0.1) 04/19/23 09:58 Absolute Nucleated RBC 0.00 x10^3/uL 04/19/23 09:58 Total Counted 100 04/16/23 12:53 Band Neuts % (Manual) Not Reportable 04/18/23 08:07 Reactive Lymphs % (Man) 2 % 04/16/23 12:53 Abnorm Lymph % (Manual) Not Reportable 04/18/23 08:07 Nucleated RBC % 0.0 /100WBC 04/19/23 09:58 Neutrophils # (Manual) Not Reportable 04/18/23 08:07 Lymphocytes # (Manual) Not Reportable 04/18/23 08:07 Monocytes # (Manual) Not Reportable 04/18/23 08:07 Eosinophils # (Manual) Not Reportable 04/18/23 08:07 Basophils # (Manual) Not Reportable 04/18/23 08:07 Differential Comment MANUAL=AUTO DIFF 04/18/23 08:07 Manual Slide Review Indicated 04/19/23 09:58 WBC Morphology NORMAL APPEARANCE (NORMAL) 04/19/23 09:58 Platelet Estimate DECREASED (<130,000) (NORMAL) 04/19/23 09:58 Platelet Morphology NORMAL APPEARANCE (NORMAL) 04/18/23 08:07 RBC Morph Micro Appear 1+ ANISOCYTOSIS (NORMAL) 2+ MACROCYTOSIS (NORMAL) 04/19/23 09:58 RBC Morph Micro Appear 1+ ANISOCYTOSIS (NORMAL) 2+ MACROCYTOSIS (NORMAL) 04/19/23 09:58 Sodium 138 mmol/L (135-145) 04/19/23 09:58 Potassium 3.3 mmol/L (3.5-4.5) L 04/19/23 09:58 Chloride 111 mmol/L (101-111) 04/19/23 09:58 Carbon Dioxide 21 mmol/L (21-32) 04/19/23 09:58 Anion Gap 6.0 (6-13) 04/19/23 09:58 BUN 9 mg/dL (6-20) 04/19/23 09:58 Creatinine 0.6 mg/dL (0.6-1.3) 04/19/23 09:58 Estimated GFR (MDRD) 100 (>89) 04/19/23 09:58 Glucose 156 mg/dL (74-104) H 04/19/23 09:58 Lactic Acid 0.6 mmol/L (0.5-2.2) 04/16/23 12:53 Calcium 8.7 mg/dL (8.5-10.3) 04/19/23 09:58 Magnesium 1.9 mg/dL (1.7-2.3) 04/16/23 13:00 Iron 31 ug/dL (50-212) L 04/19/23 09:58 TIBC TNP 04/19/23 09:58 % Saturation TNP 04/19/23 09:58 Transferrin < 75 mg/dL (203-362) L 04/19/23 09:58 Total Bilirubin 0.7 mg/dL (0.2-1.0) 04/16/23 12:53 AST 225 IU/L (10-42) H 04/16/23 12:53 ALT 93 IU/L (10-60) H 04/16/23 12:53 Alkaline Phosphatase 225 IU/L (42-121) H 04/16/23 12:53 Troponin I High Sens 26.2 ng/L (2.3-14.8) H* 04/16/23 14:27 Total Protein 4.1 g/dL (6.4-8.9) L 04/16/23 12:53 Albumin 2.2 g/dL (3.2-5.5) L 04/16/23 12:53 Globulin 1.9 g/dL (2.1-4.2) L 04/16/23 12:53 Albumin/Globulin Ratio 1.2 (1.0-2.2) 04/16/23 12:53 Lipase < 10 U/L (11-82) L 04/16/23 12:53 Folate 8.0 ng/mL (5.90 - >24.8) 04/19/23 09:58 Urine Color YELLOW 04/16/23 15:41 Urine Clarity HAZY (CLEAR) 04/16/23 15:41 Urine pH 6.0 PH (5.0-7.5) 04/16/23 15:41 Ur Specific [place] 1.020 (1.002-1.030) 04/16/23 15:41 Urine Protein TRACE mg/dL (NEGATIVE) 04/16/23 15:41 Urine Glucose (UA) NEGATIVE mg/dL (NEGATIVE) 04/16/23 15:41 Urine Ketones NEGATIVE mg/dL (NEGATIVE) 04/16/23 15:41 Urine Occult Blood NEGATIVE (NEGATIVE) 04/16/23 15:41 Urine Nitrite NEGATIVE (NEGATIVE) 04/16/23 15:41 Urine Bilirubin NEGATIVE (NEGATIVE) 04/16/23 15:41 Urine Urobilinogen 0.2 (NORMAL) E.U./dL (NORMAL) 04/16/23 15:41 Ur Leukocyte Esterase SMALL (NEGATIVE) H 04/16/23 15:41 Urine RBC None Seen /HPF (0-5) 04/16/23 15:41 Urine WBC 11-25 /HPF (0-5) H 04/16/23 15:41 Ur Squamous Epith Cells FEW Squamous (<= Few) 04/16/23 15:41 Urine Bacteria Many /HPF (None Seen) H 04/16/23 15:41 Ur Microscopic Review INDICATED 04/16/23 15:41 Urine Culture Comments INDICATED 04/16/23 15:41 Nasal Adenovirus (PCR) NOT DETECTED 04/16/23 12:46 Nasal B. parapertussis DNA (PCR) NOT DETECTED 04/16/23 12:46 Nasal Coronavir 229E PCR NOT DETECTED 04/16/23 12:46 Nasal Coronavir HKU1 PCR NOT DETECTED 04/16/23 12:46 Nasal Coronavir NL63 PCR NOT DETECTED 04/16/23 12:46 Nasal Coronavir OC43 PCR NOT DETECTED 04/16/23 12:46 Nasal Enterovir/Rhinovir PCR NOT DETECTED 04/16/23 12:46 Nasal Influenza B PCR NOT DETECTED 04/16/23 12:46 Nasal Influenza A PCR NOT DETECTED 04/16/23 12:46 Nasal Parainfluen 1 PCR NOT DETECTED 04/16/23 12:46 Nasal Parainfluen 2 PCR NOT DETECTED 04/16/23 12:46 Nasal Parainfluen 3 PCR NOT DETECTED 04/16/23 12:46 Nasal Parainfluen 4 PCR NOT DETECTED 04/16/23 12:46 Nasal RSV (PCR) NOT DETECTED 04/16/23 12:46 Nasal B.pertussis DNA PCR NOT DETECTED 04/16/23 12:46 Nasal C.pneumoniae (PCR) NOT DETECTED 04/16/23 12:46 Paresh Human Metapneumo PCR NOT DETECTED 04/16/23 12:46 Nasal M.pneumoniae (PCR) NOT DETECTED 04/16/23 12:46 Nasal SARS-CoV-2 (PCR) NOT DETECTED 04/16/23 12:46 Stl C. cayetanensis PCR Not Detected (Not Detected) 04/18/23 15:58 Stool Rotavirus A PCR Not Detected (Not Detected) 04/18/23 15:58 Stl Adenov F 40/41 PCR Not Detected (Not Detected) 04/18/23 15:58 Stool Astrovirus (PCR) Not Detected (Not Detected) 04/18/23 15:58 Stool Campylobacter PCR Not Detected (Not Detected) 04/18/23 15:58 Stl C. diff Tox A/B PCR Not Detected (Not Detected) 04/18/23 15:58 Stool Cryptosporidium PCR Not Detected (Not Detected) 04/18/23 15:58 Stl Sh Tox Pr E STEC PCR Not Detected (Not Detected) 04/18/23 15:58 Stool E coli O157 PCR Not applicable (Not Detected) 04/18/23 15:58 Stl Enterotoxigenic E PCR Not Detected (Not Detected) 04/18/23 15:58 Stool EPEC (PCR) Not Detected (Not Detected) 04/18/23 15:58 Stl E. histolytica PCR Not Detected (Not Detected) 04/18/23 15:58 Stool Giardia Lamblia PCR Not Detected (Not Detected) 04/18/23 15:58 Stl P. shigelloides PCR Not Detected (Not Detected) 04/18/23 15:58 Stool Salmonella PCR Not Detected (Not Detected) 04/18/23 15:58 Stool Sapovirus (PCR) Not Detected (Not Detected) 04/18/23 15:58 Stl Shigella/EIEC PCR Not Detected (Not Detected) 04/18/23 15:58 St Y.enterocolitica PCR Not Detected (Not Detected) 04/18/23 15:58 Stool Vibrio (PCR) Not Detected (Not Detected) 04/18/23 15:58 Stl Vibrio cholerae PCR Not Detected (Not Detected) 04/18/23 15:58 Stl Enteroaggr Ecoli PCR Not Detected (Not Detected) 04/18/23 15:58 Stl Norovirus GI/GII PCR Not Detected (Not Detected) 04/18/23 15:58 Ethyl Alcohol < 10.0 mg/dL 04/16/23 14:27 - Procedures Procedures: Procedures REPOSITION LEFT UPPER FEMUR WITH INT FIX, OPEN APPROACH (03/05/23) Sepsis Event Note (H) - Evaluation Current Stage of Sepsis: Ruled out Current Medications - Current Medications Current Medications: Active Medications Generic Name Dose Route Start Last Admin Trade Name Freq PRN Reason Stop Dose Admin Acetaminophen 650 mg 04/16/23 20:34 Acetaminophen 325 Mg Tablet PO Q4HR PRN Pain 1 to 4, or Fever Hydrocodone Bitart/Acetaminophen 1 tab 04/18/23 13:09 04/18/23 20:56 Hydrocod/Acetam 5/325 Mg Tablet PO 1 tab Q4HR PRN Administration Moderate Pain (Level 4-6) Albuterol/Ipratropium 3 ml 04/16/23 21:54 Ipratropium/Albuterol 3 Ml Neb INH Q4HR PRN Wheezing Lipase/Protease/Amylase 2 cap 04/18/23 17:00 04/19/23 10:37 Lipase/Protease/Amylase Capsule PO Not Given TIDWM MODESTA Apixaban 5 mg 04/18/23 14:30 04/18/23 20:50 Apixaban 5 Mg Tablet PO 5 mg BID MODESTA Administration Calcium Citrate 500 mg 04/16/23 22:00 04/19/23 06:47 Calcium Citrate 250 Mg Tablet PO Not Given TID MODESTA Cholecalciferol 50 mcg 04/17/23 09:00 04/18/23 09:35 Cholecalciferol 25 Mcg Tablet PO Not Given DAILY [facility] Cyanocobalamin 1,000 mcg 04/17/23 09:00 04/18/23 09:36 Cyanocobalamin 500 Mcg Tablet PO Not Given DAILY [facility] Diclofenac Sodium 50 gm 04/17/23 09:00 04/19/23 10:18 Diclofenac Sodium 1% Gel 50 Gm Tube TOP Not Given BID MODESTA Docusate Sodium 100 mg 04/16/23 21:17 Docusate Sodium 100 Mg Capsule PO BID PRN Constipation Fentanyl 25 mcg 04/18/23 13:10 Fentanyl 100 Mcg/2 Ml Vial IVP Q2HR PRN Severe Pain (Level 7-10) Ferrous Sulfate 325 mg 04/18/23 21:00 04/18/23 20:50 Ferrous Sulfate 325 Mg Tablet PO 325 mg BID MODESTA Administration Ceftriaxone Sodium 2 gm/ 100 mls @ 200 mls/hr 04/17/23 09:00 04/18/23 10:24 Sodium Chloride IV Infused DAILY MODESTA Infusion Ketorolac Tromethamine 30 mg 04/17/23 13:00 04/18/23 20:50 Ketorolac 30 Mg/Ml Vial IVP 04/22/23 12:59 30 mg Q6HR PRN Administration Severe Pain (Level 7-10) Levothyroxine Sodium 100 mcg 04/17/23 07:00 04/19/23 06:47 Levothyroxine 100 Mcg Tablet PO Not Given QDAC MODESTA Methocarbamol 750 mg 04/16/23 21:34 Methocarbamol 500 Mg Tablet PO QID PRN Spasms Nicotine 1 patch 04/17/23 00:05 04/19/23 10:17 Nicotine 7 Mg Patch TOP Not Given DAILY [facility] Ondansetron HCl 4 mg 04/16/23 20:34 Ondansetron Odt 4 Mg Tablet TL Q6HR PRN Nausea / Vomiting Ondansetron HCl 4 mg 04/16/23 20:34 Ondansetron 4 Mg/2 Ml Vial IVP Q6HR PRN Nausea / Vomiting Ondansetron HCl 4 mg 04/16/23 21:35 Ondansetron Odt 4 Mg Tablet PO Q4HR PRN Nausea / Vomiting Pantoprazole Sodium 40 mg 04/17/23 09:00 04/18/23 09:35 Pantoprazole 40 Mg Tablet PO Not Given DAILY [facility] Pantoprazole Sodium 40 mg 04/19/23 09:00 04/19/23 10:17 Pantoprazole 40 Mg Tablet PO Not Given DAILY [facility] Sodium Chloride 10 ml 04/16/23 20:34 Sodium Chloride Flush 0.9% 10 Ml Syringe IVP PRN PRN NEEDED PER PROVIDER ORDERS Sodium Chloride 10 ml 04/17/23 01:00 04/19/23 05:31 Sodium Chloride Flush 0.9% 10 Ml Syringe IVP Not Given 0100,0900,1700 MODESTA Thiamine HCl 100 mg 04/17/23 09:00 04/18/23 09:37 Thiamine 100 Mg Tablet PO Not Given DAILY MODESTA methocarbamoL [Methocarbamol] 750 mg PO Q6H 02/28/15 Cyanocobalamin (Vitamin B-12) [Vitamin B-12] 1,000 mcg PO DAILY 03/05/23 Ferrous Sulfate 325 mg PO BID 03/05/23 Levothyroxine [Synthroid] 100 mcg PO QDAC 03/05/23 Lipase/Protease/Amylase [Creon Dr 6,000 Unit Capsule] 1 - 2 ea PO DAILY 03/05/23 Ondansetron HCl 4 mg PO Q8HR PRN 03/05/23 Pantoprazole Sodium 40 mg PO DAILY 03/05/23 Furosemide [Lasix] 10 mg PO DAILY PRN 04/18/23
[2023-04-19] MEDS: cefTRIAXone 2 GM in SODIUM CHLORIDE 0.9% MINIBAG 100 ML IV SCH (11:09)
[2023-04-19] MEDS: KETOROLAC 30 MG/ML VIAL IVP PRN (12:26)
[2023-04-19] MEDS: PANTOPRAZOLE 40 MG TABLET PO SCH (12:55)
[2023-04-19] MEDS: APIXABAN 5 MG TABLET PO SCH ×2 (12:55→20:45)
[2023-04-19] MEDS: CHOLECALCIFEROL 25 MCG TABLET PO SCH (12:56)
[2023-04-19] MEDS: THIAMINE 100 MG TABLET PO SCH (12:57)
[2023-04-19] MEDS: FERROUS SULFATE 325 MG TABLET PO SCH ×2 (12:57→20:46)
[2023-04-19] MEDS: CYANOCOBALAMIN 500 MCG TABLET PO SCH (12:57)
[2023-04-19] MEDS: methocarbamoL 500 MG TABLET PO PRN (16:28)
[2023-04-19] MEDS: HYDROcod/ACETAM 5/325 MG TABLET PO PRN ×2 (16:29→22:43)
[2023-04-19] MEDS ORDERED: POTASSIUM CHLORIDE 20 MEQ TABLET PO ONE (16:59)
[2023-04-19] MEDS ORDERED: GI COCKTAIL 120 ML BOTTLE PO SCH (17:00)
[2023-04-19] MEDS ORDERED: iohexoL-300 100 ML VIAL IVP ONE (23:03)
--- NOTE | 2023-04-19 23:17 | CT Report ---
PROCEDURE: ABDOMEN/PELVIS W INDICATIONS: Sudden onset abdominal pain. Leukocytosis. Bacter CONTRAST: Omni 300 70ml TECHNIQUE: After the administration of IV contrast, 5 mm thick sections acquired from the diaphragms to the symp hysis. 5 mm thick coronal and sagittal reformats were acquired. For radiation dose reduction, the f ollowing was used: automated exposure control, adjustment of mA and/or kV according to patient size. COMPARISON: 04/16/2023 FINDINGS: Image quality: Excellent. Lung bases and heart: Moderate bilateral pleural effusion with atelectasis in posterior aspect of lesly ateral lower lobes is seen. Heart size is normal, no pericardial effusion. Bilateral breast implants are grossly intact.. Liver: No solid mass. Gallbladder and biliary tree: No radiopaque stones or wall thickening. No biliary dilation. Spleen: No splenomegaly. Pancreas: No pancreatic ductal dilation. Adrenals: No adrenal nodule. Kidneys and ureters: No hydronephrosis. No renal cystic lesion which requires follow up. No solid mas s. Bowel and peritoneum: No bowel distension. No gross abnormal bowel wall thickening. No peritoneal anish e air. Moderate to large amount of ascites fluid is seen significantly increased compared to previous study. Lymph nodes: No central or retroperitoneal adenopathy. Vessels: No infrarenal aortic aneurysm. PELVIS Reproductive organs: Unremarkable. Bladder: No abnormal wall thickening, accounting for underdistension. Pelvic lymph nodes: No pelvic adenopathy by size criteria. Bones: No aggressive osseous abnormality. Other: Generalized anasarca is again seen. No significant ventral or inguinal hernia.. IMPRESSION: 1. Interval worsening of third spacing with moderate to large ascites fluid and moderate bilateral pl eural effusion significantly increased compared to previous study. Worsening anasarca is also noted. 2. No peritoneal free air. No bowel obstruction or gross abnormal bowel wall thickening. No discrete drainable abscess collection. Reviewed by: Cesar Romo MD on 04/19/2023 11:16 PM PST Approved by: Cesar Romo MD on 04/19/2023 11:16 PM PST Station ID: [id number]
[2023-04-20] MEDS: methocarbamoL 500 MG TABLET PO PRN (05:49)
[2023-04-20] MEDS: CALCIUM CITRATE 250 MG TABLET PO SCH ×4 (05:52→21:18)
[2023-04-20] MEDS: LEVOTHYROXINE 100 MCG TABLET PO SCH (05:52)
[2023-04-20 07:37] LABS: BASOPHILS % (AUTO) 0.3 %; EOSINOPHILS # (AUTO) 0.1 10^3/uL (0.0-0.7); EOSINOPHILS % (AUTO) 0.6 %; HCT - HEMATOCRIT 24.5 % (37.0-47.0); HGB - HEMOGLOBIN 7.8 g/dL (12.0-16.0); LYMPHOCYTES # (AUTO) 1.4 10^3/uL (1.5-3.5); LYMPHOCYTES % (AUTO) 13.3 %; MEAN CORPUSCULAR HGB CONC 31.8 g/dL (32.0-36.0); MEAN CORPUSCULAR VOLUME 122.5 fL (81.0-99.0); MEAN PLATELET VOLUME 11.4 fL (7.9-10.8); MONOCYTES # (AUTO) 0.7 10^3/uL (0.0-1.0); NEUTROPHILS # (AUTO) 8.2 10^3/uL (1.5-6.6); NEUTROPHILS % (AUTO) 77.4 %; PLT - PLATELET COUNT 62 10^3/uL (130-450); RED CELL DISTRIBUTION WIDTH 15.8 % (12.0-15.0); WHITE BLOOD COUNT 10.6 x10^3/uL (4.8-10.8)
[2023-04-20 07:41] LABS: SLIDE REVIEW? Indicated
[2023-04-20 07:55] LABS: CALCIUM 8.5 mg/dL (8.5-10.3); CREATININE 0.6 mg/dL (0.6-1.3); POTASSIUM 4.3 mmol/L (3.5-4.5)
[2023-04-20 08:28] LABS: PLATELET MORPHOLOGY NORMAL APPEARANCE (NORMAL)
[2023-04-20 08:29] LABS: PLATELET ESTIMATE, MANUAL DECREASED (<130,000) (NORMAL); RBC MORPHOLOGY (MULTIPLE) 2+ MACROCYTOSIS (NORMAL); WBC MORPHOLOGY (MULTIPLE) NORMAL APPEARANCE (NORMAL)
[2023-04-20] MEDS: LIPASE/PROTEASE/AMYLASE CAPSULE PO SCH ×3 (08:31→16:42)
[2023-04-20] MEDS: POTASSIUM CHLORIDE 20 MEQ TABLET PO SCH ×2 (08:33→08:57)
[2023-04-20] MEDS: APIXABAN 5 MG TABLET PO SCH ×2 (08:34→21:18)
[2023-04-20] MEDS: CHOLECALCIFEROL 25 MCG TABLET PO SCH (08:34)
[2023-04-20] MEDS: CYANOCOBALAMIN 500 MCG TABLET PO SCH (08:34)
[2023-04-20] MEDS: FERROUS SULFATE 325 MG TABLET PO SCH ×2 (08:35→21:17)
[2023-04-20] MEDS: THIAMINE 100 MG TABLET PO SCH (08:35)
[2023-04-20] MEDS: SODIUM CHLORIDE FLUSH 0.9% 10 ML SYRINGE IVP SCH ×2 (08:35→16:42)
[2023-04-20] MEDS: FUROSEMIDE 40 MG/4 ML VIAL IVP SCH (08:35)
[2023-04-20] MEDS: cefTRIAXone 2 GM in SODIUM CHLORIDE 0.9% MINIBAG 100 ML IV SCH (08:41)
[2023-04-20] MEDS: NICOTINE 7 MG PATCH TOP SCH (08:45)
[2023-04-20] MEDS: KETOROLAC 30 MG/ML VIAL IVP PRN ×2 (08:54→19:11)
[2023-04-20] MEDS: METOPROLOL TARTRATE 25 MG TABLET PO SCH ×2 (08:54→21:18)
[2023-04-20] MEDS: PANTOPRAZOLE 40 MG TABLET PO SCH ×2 (10:45→16:41)
[2023-04-20] MEDS: HYDROcod/ACETAM 5/325 MG TABLET PO PRN ×2 (12:25→16:48)
[2023-04-20] MEDS: DICLOFENAC SODIUM 1% GEL 50 GM TUBE TOP SCH ×2 (14:02→21:21)
--- NOTE | 2023-04-20 15:06 | PROVIDER PROGRESS NOTE ---
Assessment/Plan - Problem List (1) Bacteremia Assessment/Plan: (1) Bacteremia Assessment/Plan: -- Blood cultures preliminarily showing E. coli. Urine cultures revealed Citrobacter Freundii she is currently being covered with IV ceftriaxone. -- Repeat blood cultures showing no growth to date. --Will likely need 10-14 days of antibiotics. (2) Pulmonary embolism Assessment/Plan: --CTA chest showing evidence of subsegmental PE with wedge-shaped infarc. This was discussed with dough maker at [facility] and suggest that the PE was too small for any intervention. She was admitted and started on Eliquis 10 mg twice daily. -- In discussion with pharmacy, will start patient on Eliquis 5 mg twice daily as she is having worsening anemia. This is likely due to bone marrow suppression from her history of alcohol use and malnutrition. There is been no evidence of bleeding. -- TTE was performed on 04/18. There is no evidence of any RV strain. 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 Continue home B12 medications. -- We will decrease dose of Eliquis to 5 mg twice daily due to her anemia. -- We will obtain iron, folate, B12 if she allows us to draw blood. (4) Fall from ground level Assessment/Plan: --Negative for ORIF complication on XR (5) Intertrochanteric fracture Qualifiers: Encounter type: initial encounter Fracture type: closed Fracture alig nment: nondisplaced Laterality: left Qualified Code(s): S72.145A - Nondisplaced intertrochanteric fracture of left femur, initial encounter for closed fracture (6) Metabolic acidosis Assessment/Plan: --Resolved. (3) Anemia Qualifiers: Anemia type: unspecified type Qualified Code(s): D64.9 - Anemia, unspec ified (5) Intertrochanteric fracture Qualifiers: Encounter type: initial encounter Fracture type: closed Fracture alignment: nondisplaced Laterality: left Qualified Code(s): S72.145A - Nondisplaced intertrochanteric fracture of left femur, initial encounter for closed fracture (7) Abdominal pain Qualifiers: Abdominal location: epigastric Qualified Code(s): R10.13 - Epigastric pain Assessment/Plan: --Complaining of epigastric pain after eating. CT abd/pelvis showing third spacing. Initiated patient on IV lasix. --Will order a Lipase --Will start protonix 40 mg BID due to concern for peptic ulcer disease. --Will order a stool occult to rule out bleeding. (8) SVT (supraventricular tachycardia) Assessment/Plan: --Self terminating episode of SVT yesterday. --TTE was unremarkable. --Started on metoprolol 25 mg BID. - Current Meds Current Meds: Current Medications Generic Name Dose Route Start Last Admin Trade Name Freq PRN Reason Stop Dose Admin Hydrocodone Bitart/Acetaminophen 1 tab 04/18/23 13:09 04/20/23 12:25 Hydrocod/Acetam 5/325 Mg Tablet PO 1 tab Q4HR PRN Administration Moderate Pain (Level 4-6) Lipase/Protease/Amylase 2 cap 04/18/23 17:00 04/20/23 12:15 Lipase/Protease/Amylase Capsule PO 2 cap TIDWM MODESTA Administration Apixaban 5 mg 04/18/23 14:30 04/20/23 08:34 Apixaban 5 Mg Tablet PO 5 mg BID MODESTA Administration Calcium Citrate 500 mg 04/16/23 22:00 04/20/23 15:01 Calcium Citrate 250 Mg Tablet PO Not Given TID MODESTA Cholecalciferol 50 mcg 04/17/23 09:00 04/20/23 08:34 Cholecalciferol 25 Mcg Tablet PO 50 mcg DAILY MODESTA Administration Cyanocobalamin 1,000 mcg 04/17/23 09:00 04/20/23 08:34 Cyanocobalamin 500 Mcg Tablet PO 1,000 mcg DAILY MODESTA Administration Diclofenac Sodium 50 gm 04/17/23 09:00 04/20/23 14:02 Diclofenac Sodium 1% Gel 50 Gm Tube TOP Not Given BID MODESTA Ferrous Sulfate 325 mg 04/18/23 21:00 04/20/23 08:35 Ferrous Sulfate 325 Mg Tablet PO 325 mg BID MODESTA Administration Furosemide 40 mg 04/20/23 09:00 04/20/23 08:35 Furosemide 40 Mg/4 Ml Vial IVP 40 mg DAILY MODESTA Administration Ceftriaxone Sodium 2 gm/ 100 mls @ 200 mls/hr 04/17/23 09:00 04/20/23 09:20 Sodium Chloride IV Infused DAILY MODESTA Infusion Ketorolac Tromethamine 30 mg 04/17/23 13:00 04/20/23 08:54 Ketorolac 30 Mg/Ml Vial IVP 04/22/23 12:59 30 mg Q6HR PRN Administration Severe Pain (Level 7-10) Levothyroxine Sodium 100 mcg 04/17/23 07:00 04/20/23 05:52 Levothyroxine 100 Mcg Tablet PO 100 mcg QDAC MOEDSTA Administration Methocarbamol 750 mg 04/16/23 21:34 04/20/23 05:49 Methocarbamol 500 Mg Tablet PO 750 mg QID PRN Administration Spasms Metoprolol Tartrate 25 mg 04/20/23 09:00 04/20/23 08:54 Metoprolol Tartrate 25 Mg Tablet PO 25 mg BID MODESTA Administration Nicotine 1 patch 04/17/23 00:05 04/20/23 08:45 Nicotine 7 Mg Patch TOP Not Given DAILY MODESTA Ondansetron HCl 4 mg 04/16/23 20:34 04/19/23 16:27 Ondansetron Odt 4 Mg Tablet TL 4 mg Q6HR PRN Administration Nausea / Vomiting Pantoprazole Sodium 40 mg 04/20/23 09:00 04/20/23 10:45 Pantoprazole 40 Mg Tablet PO 40 mg BIDAC [facility] Administration Potassium Chloride 20 meq 04/20/23 08:00 04/20/23 08:57 Potassium Chloride 20 Meq Tablet PO Not Given DAILYWM MODESTA Sodium Chloride 10 ml 04/16/23 20:34 04/20/23 08:54 Sodium Chloride Flush 0.9% 10 Ml Syringe IVP 10 ml PRN PRN Administration NEEDED PER PROVIDER ORDERS Sodium Chloride 10 ml 04/17/23 01:00 04/20/23 08:35 Sodium Chloride Flush 0.9% 10 Ml Syringe IVP 10 ml 0100,0900,1700 MODESTA Administration Thiamine HCl 100 mg 04/17/23 09:00 04/20/23 08:35 Thiamine 100 Mg Tablet PO 100 mg DAILY MODESTA Administration - Lab Result Fish Bone Diagrams: 04/20/23 07:30 04/20/23 07:30 - Additional Planning My Orders: My Active Orders 04/20/23 08:00 Potassium Chloride [K-Dur] 20 meq PO DAILYWM 04/20/23 09:00 FUROSEMIDE INJ 40mg VIAL [LASIX INJ 40 mg VIAL] 40 mg IVP DAILY Metoprolol Tartrate [Lopressor] 25 mg PO BID Pantoprazole [Protonix] 40 mg PO BIDAC 04/21/23 05:00 BMP - BASIC METABOLIC PANEL [CHEM] DAILYLAB CBC [CBC - COMP BLD CT W/AUTO DIFF] [HEME] DAILYLAB 04/22/23 05:00 BMP - BASIC METABOLIC PANEL [CHEM] DAILYLAB CBC [CBC - COMP BLD CT W/AUTO DIFF] [HEME] DAILYLAB Subjective - Subjective Patient Reports: Feeling Better, Abdominal Pain (Complaining of abdominal pain. She is quite tender to palpation. CT scan did not show any obvious findings. Will start protonix as it is worse after eating.) Objective Vital Signs: Vital Signs - 24 hr 04/19/23 04/19/23 04/19/23 16:17 21:00 23:37 Temperature 36.3 C L 36.6 C 36.3 C L Heart Rate [ 113 H 101 H 91 Brachial] Respiratory 16 21 18 Rate Blood Pressure Blood Pressure [Left Brachial artery] Blood Pressure 113/61 104/60 113/38 L [Right Brachial artery] O2 Saturation 97 98 97 04/19/23 04/20/23 04/20/23 23:57 07:59 08:54 Temperature 36.6 C Heart Rate [ 95 101 H Brachial] Respiratory 20 Rate Blood Pressure 113/66 Blood Pressure 115/57 L [Left Brachial artery] Blood Pressure 102/54 L [Right Brachial artery] O2 Saturation 95 Oxygen O2 Source Room air I&O (Last 24 Hrs): Intake and Output Totals x24h 04/18/23 04/19/23 04/20/23 23:59 23:59 23:59 Intake Total 3116 400 670 Output Total 460 175 Balance 2656 400 495 General: Cooperative, Mild distress HEENT: Atraumatic, PERRLA Neck: Supple, No JVD Neuro: Alert, CN 2-12 Grossly Intact Cardiovascular: Regular rate, Normal S1, Normal S2 Respiratory: Chest non-tender, No respiratory distress, Breath sounds nml Abdomen: Soft (Tender to epigastric palpation. No masses or abnormalities on visual inspection.) - Results Results: Laboratory Results WBC 10.6 x10^3/uL (4.8-10.8) 04/20/23 07:30 RBC 2.00 10^6/uL (4.20-5.40) L 04/20/23 07:30 Hgb 7.8 g/dL (12.0-16.0) L 04/20/23 07:30 Hct 24.5 % (37.0-47.0) L 04/20/23 07:30 MCV 122.5 fL (81.0-99.0) H 04/20/23 07:30 MCH 39.0 pg (27.0-31.0) H 04/20/23 07:30 MCHC 31.8 g/dL (32.0-36.0) L 04/20/23 07:30 RDW 15.8 % (12.0-15.0) H 04/20/23 07:30 Plt Count 62 10^3/uL (130-450) L 04/20/23 07:30 MPV 11.4 fL (7.9-10.8) H 04/20/23 07:30 Neut # (Auto) 8.2 10^3/uL (1.5-6.6) H 04/20/23 07:30 Lymph # (Auto) 1.4 10^3/uL (1.5-3.5) L 04/20/23 07:30 [place] # (Auto) 0.7 10^3/uL (0.0-1.0) 04/20/23 07:30 Eos # (Auto) 0.1 10^3/uL (0.0-0.7) 04/20/23 07:30 Baso # (Auto) 0.0 10^3/uL (0.0-0.1) 04/20/23 07:30 Absolute Nucleated RBC 0.00 x10^3/uL 04/20/23 07:30 Total Counted 100 04/16/23 12:53 Band Neuts % (Manual) Not Reportable 04/18/23 08:07 Reactive Lymphs % (Man) 2 % 04/16/23 12:53 Abnorm Lymph % (Manual) Not Reportable 04/18/23 08:07 Nucleated RBC % 0.0 /100WBC 04/20/23 07:30 Neutrophils # (Manual) Not Reportable 04/18/23 08:07 Lymphocytes # (Manual) Not Reportable 04/18/23 08:07 Monocytes # (Manual) Not Reportable 04/18/23 08:07 Eosinophils # (Manual) Not Reportable 04/18/23 08:07 Basophils # (Manual) Not Reportable 04/18/23 08:07 Differential Comment MANUAL=AUTO DIFF 04/18/23 08:07 Manual Slide Review Indicated 04/20/23 07:30 WBC Morphology NORMAL APPEARANCE (NORMAL) 04/20/23 07:30 Platelet Estimate DECREASED (<130,000) (NORMAL) 04/20/23 07:30 Platelet Morphology NORMAL APPEARANCE (NORMAL) 04/20/23 07:30 RBC Morph Micro Appear 2+ MACROCYTOSIS (NORMAL) 04/20/23 07:30 Sodium 139 mmol/L (135-145) 04/20/23 07:30 Potassium 4.3 mmol/L (3.5-4.5) 04/20/23 07:30 Chloride 113 mmol/L (101-111) H 04/20/23 07:30 Carbon Dioxide 22 mmol/L (21-32) 04/20/23 07:30 Anion Gap 4.0 (6-13) L 04/20/23 07:30 BUN 10 mg/dL (6-20) 04/20/23 07:30 Creatinine 0.6 mg/dL (0.6-1.3) 04/20/23 07:30 Estimated GFR (MDRD) 100 (>89) 04/20/23 07:30 Glucose 84 mg/dL (74-104) 04/20/23 07:30 Lactic Acid 0.6 mmol/L (0.5-2.2) 04/16/23 12:53 Calcium 8.5 mg/dL (8.5-10.3) 04/20/23 07:30 Magnesium 1.9 mg/dL (1.7-2.3) 04/16/23 13:00 Iron 31 ug/dL (50-212) L 04/19/23 09:58 TIBC TNP 04/19/23 09:58 % Saturation TNP 04/19/23 09:58 Transferrin < 75 mg/dL (203-362) L 04/19/23 09:58 Total Bilirubin 0.7 mg/dL (0.2-1.0) 04/16/23 12:53 AST 225 IU/L (10-42) H 04/16/23 12:53 ALT 93 IU/L (10-60) H 04/16/23 12:53 Alkaline Phosphatase 225 IU/L (42-121) H 04/16/23 12:53 Troponin I High Sens 26.2 ng/L (2.3-14.8) H* 04/16/23 14:27 Total Protein 4.1 g/dL (6.4-8.9) L 04/16/23 12:53 Albumin 2.2 g/dL (3.2-5.5) L 04/16/23 12:53 Globulin 1.9 g/dL (2.1-4.2) L 04/16/23 12:53 Albumin/Globulin Ratio 1.2 (1.0-2.2) 04/16/23 12:53 Lipase < 10 U/L (11-82) L 04/16/23 12:53 Vitamin B12 6700 pg/mL (180-914) H 04/19/23 09:58 Folate 8.0 ng/mL (5.90 - >24.8) 04/19/23 09:58 Urine Color YELLOW 04/16/23 15:41 Urine Clarity HAZY (CLEAR) 04/16/23 15:41 Urine pH 6.0 PH (5.0-7.5) 04/16/23 15:41 Ur Specific [place] 1.020 (1.002-1.030) 04/16/23 15:41 Urine Protein TRACE mg/dL (NEGATIVE) 04/16/23 15:41 Urine Glucose (UA) NEGATIVE mg/dL (NEGATIVE) 04/16/23 15:41 Urine Ketones NEGATIVE mg/dL (NEGATIVE) 04/16/23 15:41 Urine Occult Blood NEGATIVE (NEGATIVE) 04/16/23 15:41 Urine Nitrite NEGATIVE (NEGATIVE) 04/16/23 15:41 Urine Bilirubin NEGATIVE (NEGATIVE) 04/16/23 15:41 Urine Urobilinogen 0.2 (NORMAL) E.U./dL (NORMAL) 04/16/23 15:41 Ur Leukocyte Esterase SMALL (NEGATIVE) H 04/16/23 15:41 Urine RBC None Seen /HPF (0-5) 04/16/23 15:41 Urine WBC 11-25 /HPF (0-5) H 04/16/23 15:41 Ur Squamous Epith Cells FEW Squamous (<= Few) 04/16/23 15:41 Urine Bacteria Many /HPF (None Seen) H 04/16/23 15:41 Ur Microscopic Review INDICATED 04/16/23 15:41 Urine Culture Comments INDICATED 04/16/23 15:41 Nasal Adenovirus (PCR) NOT DETECTED 04/16/23 12:46 Nasal B. parapertussis DNA (PCR) NOT DETECTED 04/16/23 12:46 Nasal Coronavir 229E PCR NOT DETECTED 04/16/23 12:46 Nasal Coronavir HKU1 PCR NOT DETECTED 04/16/23 12:46 Nasal Coronavir NL63 PCR NOT DETECTED 04/16/23 12:46 Nasal Coronavir OC43 PCR NOT DETECTED 04/16/23 12:46 Nasal Enterovir/Rhinovir PCR NOT DETECTED 04/16/23 12:46 Nasal Influenza B PCR NOT DETECTED 04/16/23 12:46 Nasal Influenza A PCR NOT DETECTED 04/16/23 12:46 Nasal Parainfluen 1 PCR NOT DETECTED 04/16/23 12:46 Nasal Parainfluen 2 PCR NOT DETECTED 04/16/23 12:46 Nasal Parainfluen 3 PCR NOT DETECTED 04/16/23 12:46 Nasal Parainfluen 4 PCR NOT DETECTED 04/16/23 12:46 Nasal RSV (PCR) NOT DETECTED 04/16/23 12:46 Nasal B.pertussis DNA PCR NOT DETECTED 04/16/23 12:46 Nasal C.pneumoniae (PCR) NOT DETECTED 04/16/23 12:46 Paresh Human Metapneumo PCR NOT DETECTED 04/16/23 12:46 Nasal M.pneumoniae (PCR) NOT DETECTED 04/16/23 12:46 Nasal SARS-CoV-2 (PCR) NOT DETECTED 04/16/23 12:46 Stl C. cayetanensis PCR Not Detected (Not Detected) 04/18/23 15:58 Stool Rotavirus A PCR Not Detected (Not Detected) 04/18/23 15:58 Stl Adenov F 40/41 PCR Not Detected (Not Detected) 04/18/23 15:58 Stool Astrovirus (PCR) Not Detected (Not Detected) 04/18/23 15:58 Stool Campylobacter PCR Not Detected (Not Detected) 04/18/23 15:58 Stl C. diff Tox A/B PCR Not Detected (Not Detected) 04/18/23 15:58 Stool Cryptosporidium PCR Not Detected (Not Detected) 04/18/23 15:58 Stl Sh Tox Pr E STEC PCR Not Detected (Not Detected) 04/18/23 15:58 Stool E coli O157 PCR Not applicable (Not Detected) 04/18/23 15:58 Stl Enterotoxigenic E PCR Not Detected (Not Detected) 04/18/23 15:58 Stool EPEC (PCR) Not Detected (Not Detected) 04/18/23 15:58 Stl E. histolytica PCR Not Detected (Not Detected) 04/18/23 15:58 Stool Giardia Lamblia PCR Not Detected (Not Detected) 04/18/23 15:58 Stl P. shigelloides PCR Not Detected (Not Detected) 04/18/23 15:58 Stool Salmonella PCR Not Detected (Not Detected) 04/18/23 15:58 Stool Sapovirus (PCR) Not Detected (Not Detected) 04/18/23 15:58 Stl Shigella/EIEC PCR Not Detected (Not Detected) 04/18/23 15:58 St Y.enterocolitica PCR Not Detected (Not Detected) 04/18/23 15:58 Stool Vibrio (PCR) Not Detected (Not Detected) 04/18/23 15:58 Stl Vibrio cholerae PCR Not Detected (Not Detected) 04/18/23 15:58 Stl Enteroaggr Ecoli PCR Not Detected (Not Detected) 04/18/23 15:58 Stl Norovirus GI/GII PCR Not Detected (Not Detected) 04/18/23 15:58 Ethyl Alcohol < 10.0 mg/dL 04/16/23 14:27 - Procedures Procedures: Procedures REPOSITION LEFT UPPER FEMUR WITH INT FIX, OPEN APPROACH (03/05/23) Sepsis Event Note (H) - Evaluation Current Stage of Sepsis: Ruled out Current Medications - Current Medications Current Medications: Active Medications Generic Name Dose Route Start Last Admin Trade Name Freq PRN Reason Stop Dose Admin Acetaminophen 650 mg 04/16/23 20:34 Acetaminophen 325 Mg Tablet PO Q4HR PRN Pain 1 to 4, or Fever Hydrocodone Bitart/Acetaminophen 1 tab 04/18/23 13:09 04/20/23 12:25 Hydrocod/Acetam 5/325 Mg Tablet PO 1 tab Q4HR PRN Administration Moderate Pain (Level 4-6) Albuterol/Ipratropium 3 ml 04/16/23 21:54 Ipratropium/Albuterol 3 Ml Neb INH Q4HR PRN Wheezing Lipase/Protease/Amylase 2 cap 04/18/23 17:00 04/20/23 12:15 Lipase/Protease/Amylase Capsule PO 2 cap TIDWM MODESTA Administration Apixaban 5 mg 04/18/23 14:30 04/20/23 08:34 Apixaban 5 Mg Tablet PO 5 mg BID MODESTA Administration Calcium Citrate 500 mg 04/16/23 22:00 04/20/23 15:01 Calcium Citrate 250 Mg Tablet PO Not Given TID MODESTA Cholecalciferol 50 mcg 04/17/23 09:00 04/20/23 08:34 Cholecalciferol 25 Mcg Tablet PO 50 mcg DAILY MODESTA Administration Cyanocobalamin 1,000 mcg 04/17/23 09:00 04/20/23 08:34 Cyanocobalamin 500 Mcg Tablet PO 1,000 mcg DAILY MODESTA Administration Diclofenac Sodium 50 gm 04/17/23 09:00 04/20/23 14:02 Diclofenac Sodium 1% Gel 50 Gm Tube TOP Not Given BID MODESTA Docusate Sodium 100 mg 04/16/23 21:17 Docusate Sodium 100 Mg Capsule PO BID PRN Constipation Fentanyl 25 mcg 04/18/23 13:10 Fentanyl 100 Mcg/2 Ml Vial IVP Q2HR PRN Severe Pain (Level 7-10) Ferrous Sulfate 325 mg 04/18/23 21:00 04/20/23 08:35 Ferrous Sulfate 325 Mg Tablet PO 325 mg BID MODESTA Administration Furosemide 40 mg 04/20/23 09:00 04/20/23 08:35 Furosemide 40 Mg/4 Ml Vial IVP 40 mg DAILY MODESTA Administration Ceftriaxone Sodium 2 gm/ 100 mls @ 200 mls/hr 04/17/23 09:00 04/20/23 09:20 Sodium Chloride IV Infused DAILY [facility] Infusion Ketorolac Tromethamine 30 mg 04/17/23 13:00 04/20/23 08:54 Ketorolac 30 Mg/Ml Vial IVP 04/22/23 12:59 30 mg Q6HR PRN Administration Severe Pain (Level 7-10) Levothyroxine Sodium 100 mcg 04/17/23 07:00 04/20/23 05:52 Levothyroxine 100 Mcg Tablet PO 100 mcg QDAC MODESTA Administration Methocarbamol 750 mg 04/16/23 21:34 04/20/23 05:49 Methocarbamol 500 Mg Tablet PO 750 mg QID PRN Administration Spasms Metoprolol Tartrate 25 mg 04/20/23 09:00 04/20/23 08:54 Metoprolol Tartrate 25 Mg Tablet PO 25 mg BID MODESTA Administration Nicotine 1 patch 04/17/23 00:05 04/20/23 08:45 Nicotine 7 Mg Patch TOP Not Given DAILY MODESTA Ondansetron HCl 4 mg 04/16/23 20:34 04/19/23 16:27 Ondansetron Odt 4 Mg Tablet TL 4 mg Q6HR PRN Administration Nausea / Vomiting Ondansetron HCl 4 mg 04/16/23 20:34 Ondansetron 4 Mg/2 Ml Vial IVP Q6HR PRN Nausea / Vomiting Ondansetron HCl 4 mg 04/16/23 21:35 Ondansetron Odt 4 Mg Tablet PO Q4HR PRN Nausea / Vomiting Pantoprazole Sodium 40 mg 04/20/23 09:00 04/20/23 10:45 Pantoprazole 40 Mg Tablet PO 40 mg BIDAC MODESTA Administration Potassium Chloride 20 meq 04/20/23 08:00 04/20/23 08:57 Potassium Chloride 20 Meq Tablet PO Not Given DAILYWM MODESTA Sodium Chloride 10 ml 04/16/23 20:34 04/20/23 08:54 Sodium Chloride Flush 0.9% 10 Ml Syringe IVP 10 ml PRN PRN Administration NEEDED PER PROVIDER ORDERS Sodium Chloride 10 ml 04/17/23 01:00 04/20/23 08:35 Sodium Chloride Flush 0.9% 10 Ml Syringe IVP 10 ml 0100,0900,1700 MODESTA Administration Thiamine HCl 100 mg 04/17/23 09:00 04/20/23 08:35 Thiamine 100 Mg Tablet PO 100 mg DAILY MODESTA Administration methocarbamoL [Methocarbamol] 750 mg PO Q6H 02/28/15 Cyanocobalamin (Vitamin B-12) [Vitamin B-12] 1,000 mcg PO DAILY 03/05/23 Ferrous Sulfate 325 mg PO BID 03/05/23 Levothyroxine [Synthroid] 100 mcg PO QDAC 03/05/23 Lipase/Protease/Amylase [Alejandra Dr 6,000 Unit Capsule] 1 - 2 ea PO DAILY 03/05/23 Ondansetron HCl 4 mg PO Q8HR PRN 03/05/23 Pantoprazole Sodium 40 mg PO DAILY 03/05/23 Furosemide [Lasix] 10 mg PO DAILY PRN 04/18/23
[2023-04-20] MEDS: MIRTAZAPINE 15 MG TABLET PO SCH (21:18)
[2023-04-21] MEDS: KETOROLAC 30 MG/ML VIAL IVP PRN ×3 (00:37→23:58)
[2023-04-21] MEDS: SODIUM CHLORIDE FLUSH 0.9% 10 ML SYRINGE IVP SCH ×4 (00:37→23:58)
[2023-04-21] MEDS: CALCIUM CITRATE 250 MG TABLET PO SCH ×4 (06:08→21:33)
[2023-04-21] MEDS: LEVOTHYROXINE 100 MCG TABLET PO SCH (06:08)
[2023-04-21] MEDS: PANTOPRAZOLE 40 MG TABLET PO SCH ×2 (06:08→16:40)
[2023-04-21 07:30] LABS: BASOPHILS # (AUTO) 0.1 10^3/uL (0.0-0.1); BASOPHILS % (AUTO) 0.4 %; EOSINOPHILS # (AUTO) 0.1 10^3/uL (0.0-0.7); EOSINOPHILS % (AUTO) 0.8 %; HGB - HEMOGLOBIN 9.2 g/dL (12.0-16.0); LYMPHOCYTES % (AUTO) 13.9 %; MEAN CORPUSCULAR HEMOGLOBIN 39.7 pg (27.0-31.0); MEAN CORPUSCULAR HGB CONC 31.7 g/dL (32.0-36.0); MONOCYTES # (AUTO) 1.1 10^3/uL (0.0-1.0); MONOCYTES % (AUTO) 7.4 %; NEUTROPHILS # (AUTO) 10.8 10^3/uL (1.5-6.6); NEUTROPHILS % (AUTO) 75.8 %; PLT - PLATELET COUNT 68 10^3/uL (130-450); RED BLOOD COUNT 2.32 10^6/uL (4.20-5.40); RED CELL DISTRIBUTION WIDTH 15.3 % (12.0-15.0); WHITE BLOOD COUNT 14.3 x10^3/uL (4.8-10.8)
[2023-04-21 07:37] LABS: SLIDE REVIEW? Indicated
[2023-04-21 07:55] LABS: ALBUMIN 2.3 g/dL (3.2-5.5); ALBUMIN/GLOBULIN RATIO 0.9 (1.0-2.2); BILIRUBIN,TOTAL 0.5 mg/dL (0.2-1.0); CALCIUM 8.3 mg/dL (8.5-10.3); CREATININE 0.7 mg/dL (0.6-1.3); TOTAL PROTEIN 4.8 g/dL (6.4-8.9)
[2023-04-21] MEDS: FUROSEMIDE 40 MG/4 ML VIAL IVP SCH (07:57)
[2023-04-21] MEDS: cefTRIAXone 2 GM in SODIUM CHLORIDE 0.9% MINIBAG 100 ML IV SCH (07:59)
[2023-04-21] MEDS: CYANOCOBALAMIN 500 MCG TABLET PO SCH (08:09)
[2023-04-21] MEDS: APIXABAN 5 MG TABLET PO SCH ×2 (08:09→21:09)
[2023-04-21] MEDS: CHOLECALCIFEROL 25 MCG TABLET PO SCH (08:09)
[2023-04-21] MEDS: METOPROLOL TARTRATE 25 MG TABLET PO SCH ×2 (08:09→21:09)
[2023-04-21] MEDS: LIPASE/PROTEASE/AMYLASE CAPSULE PO SCH ×3 (08:09→17:08)
[2023-04-21] MEDS: FERROUS SULFATE 325 MG TABLET PO SCH ×2 (08:09→21:09)
[2023-04-21] MEDS: POTASSIUM CHLORIDE 20 MEQ TABLET PO SCH (08:10)
[2023-04-21] MEDS: THIAMINE 100 MG TABLET PO SCH (08:10)
[2023-04-21 08:11] LABS: PLATELET ESTIMATE, MANUAL DECREASED (<130,000) (NORMAL); PLATELET MORPHOLOGY NORMAL APPEARANCE (NORMAL); WBC MORPHOLOGY (MULTIPLE) NORMAL APPEARANCE (NORMAL)
[2023-04-21 08:27] LABS: THYROID STIMULATING HORMONE 1.99 uIU/mL (0.34-5.60)
[2023-04-21] MEDS: DICLOFENAC SODIUM 1% GEL 50 GM TUBE TOP SCH ×2 (11:38→21:10)
[2023-04-21] MEDS: NICOTINE 7 MG PATCH TOP SCH (11:39)
[2023-04-21 11:45] LABS: CREATININE,URINE 22.3 mg/dL; MICROALBUM/CREATININE RATIO,UR 31.4 ug/mg (<30.0); MICROALBUMIN,URINE 0.7 mg/dL
[2023-04-21] MEDS: HYDROcod/ACETAM 5/325 MG TABLET PO PRN ×3 (12:05→21:09)
--- NOTE | 2023-04-21 12:12 | PROVIDER PROGRESS NOTE ---
Assessment/Plan - Problem List (1) Bacteremia Assessment/Plan: (1) Bacteremia Assessment/Plan: -- Blood cultures preliminarily showing E. coli. Urine cultures revealed Citrobacter Freundii she is currently being covered with IV ceftriaxone. -- Repeat blood cultures showing no growth to date. --Will likely need 10-14 days of antibiotics. (2) Pulmonary embolism Assessment/Plan: --CTA chest showing evidence of subsegmental PE with wedge-shaped infarc. This was discussed with honey producer at [facility] and suggest that the PE was too small for any intervention. She was admitted and started on Eliquis 10 mg twice daily. -- In discussion with pharmacy, will start patient on Eliquis 5 mg twice daily as she is having worsening anemia. This is likely due to bone marrow suppression from her history of alcohol use and malnutrition. There is been no evidence of bleeding. -- TTE was performed on 04/18. There is no evidence of any RV strain. 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 Continue home B12 medications. -- We will decrease dose of Eliquis to 5 mg twice daily due to her anemia. -- We will obtain iron, folate, B12 if she allows us to draw blood. (4) Fall from ground level Assessment/Plan: --Negative for ORIF complication on XR (5) Intertrochanteric fracture Qualifiers: Encounter type: initial encounter Fracture type: closed Fracture alig nment: nondisplaced Laterality: left Qualified Code(s): S72.145A - Nondisplaced intertrochanteric fracture of left femur, initial encounter for closed fracture (6) Metabolic acidosis Assessment/Plan: --Resolved. (7) Abdominal pain Qualifiers: Abdominal location: epigastric Qualified Code(s): R10.13 - Epigastric pain Assessment/Plan: --Complaining of epigastric pain after eating. CT abd/pelvis showing third spacing. Initiated patient on IV lasix. --Urine microalbumin:cr ratio pending to r/o urine wasting of protein. --Will order a Lipase --Will start protonix 40 mg BID due to concern for peptic ulcer disease. --Will order a stool occult to rule out bleeding. (8) SVT (supraventricular tachycardia) Assessment/Plan: --Self terminating episode of SVT yesterday. --TTE was unremarkable. --Started on metoprolol 25 mg BID. (3) Anemia Qualifiers: Anemia type: unspecified type Qualified Code(s): D64.9 - Anemia, unspecified (5) Intertrochanteric fracture Qualifiers: Encounter type: initial encounter Fracture type: closed Fracture alignment: nondisplaced Laterality: left Qualified Code(s): S72.145A - Non displaced intertrochanteric fracture of left femur, initial encounter for closed fracture (7) Abdominal pain Qualifiers: Abdominal location: epigastric Qualified Code(s): R10.13 - Epigastric pain (9) Severe protein-calorie malnutrition Assessment/Plan: --Patient did eat some food this morning and was up at bedside briefly. Per POA, patient is not opposed to tube feeds and has had them in the past. --Lengthy discussion with POA regarding goals of care given the patient has had multiple hospitalizations over this year. POA endorse that patient had a prolonged hospitalization in [place] due to a head injury. During this time she did require tube feedings in the ICU. Since that she has had 2 more hospitalizations including this 1. We briefly broached the topic of hospice. POA will be here over the weekend and into next week. Palliative care has been consulted. - Current Meds Current Meds: Current Medications Generic Name Dose Route Start Last Admin Trade Name Freq PRN Reason Stop Dose Admin Hydrocodone Bitart/Acetaminophen 1 tab 04/18/23 13:09 04/21/23 12:05 Hydrocod/Acetam 5/325 Mg Tablet PO 1 tab Q4HR PRN Administration Moderate Pain (Level 4-6) Lipase/Protease/Amylase 2 cap 04/18/23 17:00 04/21/23 12:00 Lipase/Protease/Amylase Capsule PO 2 cap TIDWM MODESTA Administration Apixaban 5 mg 04/18/23 14:30 04/21/23 08:09 Apixaban 5 Mg Tablet PO 5 mg BID MODESTA Administration Calcium Citrate 500 mg 04/16/23 22:00 04/21/23 06:08 Calcium Citrate 250 Mg Tablet PO 500 mg TID MODESTA Administration Cholecalciferol 50 mcg 04/17/23 09:00 04/21/23 08:09 Cholecalciferol 25 Mcg Tablet PO 50 mcg DAILY MODESTA Administration Cyanocobalamin 1,000 mcg 04/17/23 09:00 04/21/23 08:09 Cyanocobalamin 500 Mcg Tablet PO 1,000 mcg DAILY MODE[facility] Administration Diclofenac Sodium 50 gm 04/17/23 09:00 04/21/23 11:38 Diclofenac Sodium 1% Gel 50 Gm Tube TOP Not Given BID MODESTA Ferrous Sulfate 325 mg 04/18/23 21:00 04/21/23 08:09 Ferrous Sulfate 325 Mg Tablet PO 325 mg BID MODESTA Administration Furosemide 40 mg 04/20/23 09:00 04/21/23 07:57 Furosemide 40 Mg/4 Ml Vial IVP 40 mg DAILY MODE[facility] Administration Ceftriaxone Sodium 2 gm/ 100 mls @ 200 mls/hr 04/17/23 09:00 04/21/23 09:00 Sodium Chloride IV Infused DAILY [facility] Infusion Ketorolac Tromethamine 30 mg 04/17/23 13:00 04/21/23 07:54 Ketorolac 30 Mg/Ml Vial IVP 04/22/23 12:59 30 mg Q6HR PRN Administration Severe Pain (Level 7-10) Levothyroxine Sodium 100 mcg 04/17/23 07:00 04/21/23 06:08 Levothyroxine 100 Mcg Tablet PO 100 mcg QDAC MODESTA Administration Methocarbamol 750 mg 04/16/23 21:34 04/20/23 05:49 Methocarbamol 500 Mg Tablet PO 750 mg QID PRN Administration Spasms Metoprolol Tartrate 25 mg 04/20/23 09:00 04/21/23 08:09 Metoprolol Tartrate 25 Mg Tablet PO 25 mg BID MODESTA Administration Mirtazapine 15 mg 04/20/23 21:00 04/20/23 21:18 Mirtazapine 15 Mg Tablet PO 15 mg QPM MODESTA Administration Nicotine 1 patch 04/17/23 00:05 04/21/23 11:39 Nicotine 7 Mg Patch TOP Not Given DAILY [facility] Ondansetron HCl 4 mg 04/16/23 20:34 04/19/23 16:27 Ondansetron Odt 4 Mg Tablet TL 4 mg Q6HR PRN Administration Nausea / Vomiting Pantoprazole Sodium 40 mg 04/20/23 09:00 04/21/23 06:08 Pantoprazole 40 Mg Tablet PO 40 mg BIDAC MODESTA Administration Potassium Chloride 20 meq 04/20/23 08:00 04/21/23 08:10 Potassium Chloride 20 Meq Tablet PO 20 meq DAILYWM MODESTA Administration Sodium Chloride 10 ml 04/16/23 20:34 04/20/23 08:54 Sodium Chloride Flush 0.9% 10 Ml Syringe IVP 10 ml PRN PRN Administration NEEDED PER PROVIDER ORDERS Sodium Chloride 10 ml 04/17/23 01:00 04/21/23 08:10 Sodium Chloride Flush 0.9% 10 Ml Syringe IVP 10 ml 0100,0900,1700 MODESTA Administration Thiamine HCl 100 mg 04/17/23 09:00 04/21/23 08:10 Thiamine 100 Mg Tablet PO 100 mg DAILY MODESTA Administration - Lab Result Fish Bone Diagrams: 04/21/23 07:22 04/21/23 07:22 - Additional Planning Condition/Complexity: Guarded My Orders: My Active Orders 04/20/23 21:00 Mirtazapine [Remeron] 15 mg PO QPM 04/21/23 07:22 VITAMIN D 25-HYDROXY [REFLAB] DAILY 04/22/23 05:00 BMP - BASIC METABOLIC PANEL [CHEM] DAILYLAB CBC [CBC - COMP BLD CT W/AUTO DIFF] [HEME] DAILYLAB 04/23/23 Palliative Care Consult [CONS] Routine Subjective - Subjective Patient Reports: Resting Comfortably, No Complaints Objective Vital Signs: Vital Signs - 24 hr 04/20/23 04/20/23 04/20/23 15:46 21:18 21:30 Temperature 36.6 C 36.3 C L Heart Rate [ 91 88 Brachial] Respiratory 16 16 Rate Blood Pressure 105/60 Blood Pressure 113/76 116/52 L [Right Brachial artery] O2 Saturation 96 98 04/21/23 04/21/23 04/21/23 00:55 08:09 08:16 Temperature 36.3 C L 36.4 C L Heart Rate [ 74 98 Brachial] Respiratory 16 16 Rate Blood Pressure 104/69 Blood Pressure 112/44 L 104/69 [Right Brachial artery] O2 Saturation 98 99 Oxygen O2 Source Room air I&O (Last 24 Hrs): Intake and Output Totals x24h 04/19/23 04/20/23 04/21/23 23:59 23:59 23:59 Intake Total 400 1330 270 Output Total 175 Balance 400 1155 270 General: Alert, No acute distress, Other (AOx3) Neuro: Alert, CN 2-12 Grossly Intact, Oriented Times 3 Cardiovascular: Regular rate, Normal S1, Normal S2, No murmurs Respiratory: Chest non-tender, No respiratory distress, Breath sounds nml Abdomen: Normal bowel sounds, Soft, No tenderness, No hepatospenomegaly, No masses - Results Results: Laboratory Results WBC 14.3 x10^3/uL (4.8-10.8) H 04/21/23 07:22 RBC 2.32 10^6/uL (4.20-5.40) L 04/21/23 07:22 Hgb 9.2 g/dL (12.0-16.0) L 04/21/23 07:22 Hct 29.0 % (37.0-47.0) L 04/21/23 07:22 MCV 125.0 fL (81.0-99.0) H 04/21/23 07:22 MCH 39.7 pg (27.0-31.0) H 04/21/23 07:22 MCHC 31.7 g/dL (32.0-36.0) L 04/21/23 07:22 RDW 15.3 % (12.0-15.0) H 04/21/23 07:22 Plt Count 68 10^3/uL (130-450) L 04/21/23 07:22 MPV 12.0 fL (7.9-10.8) H 04/21/23 07:22 Neut # (Auto) 10.8 10^3/uL (1.5-6.6) H 04/21/23 07:22 Lymph # (Auto) 2.0 10^3/uL (1.5-3.5) 04/21/23 07:22 [place] # (Auto) 1.1 10^3/uL (0.0-1.0) H 04/21/23 07:22 Eos # (Auto) 0.1 10^3/uL (0.0-0.7) 04/21/23 07:22 Baso # (Auto) 0.1 10^3/uL (0.0-0.1) 04/21/23 07:22 Absolute Nucleated RBC 0.00 x10^3/uL 04/21/23 07:22 Total Counted 100 04/16/23 12:53 Band Neuts % (Manual) Not Reportable 04/18/23 08:07 Reactive Lymphs % (Man) 2 % 04/16/23 12:53 Abnorm Lymph % (Manual) Not Reportable 04/18/23 08:07 Nucleated RBC % 0.0 /100WBC 04/21/23 07:22 Neutrophils # (Manual) Not Reportable 04/18/23 08:07 Lymphocytes # (Manual) Not Reportable 04/18/23 08:07 Monocytes # (Manual) Not Reportable 04/18/23 08:07 Eosinophils # (Manual) Not Reportable 04/18/23 08:07 Basophils # (Manual) Not Reportable 04/18/23 08:07 Differential Comment MANUAL=AUTO DIFF 04/18/23 08:07 Manual Slide Review Indicated 04/21/23 07:22 WBC Morphology NORMAL APPEARANCE (NORMAL) 04/21/23 07:22 Platelet Estimate DECREASED (<130,000) (NORMAL) 04/21/23 07:22 Platelet Morphology NORMAL APPEARANCE (NORMAL) 04/21/23 07:22 RBC Morph Micro Appear 4+ MACROCYTOSIS (NORMAL) 1+ HYPOCHROMASIA (NORMAL) 1+ ANISOCYTOSIS (NORMAL) 04/21/23 07:22 RBC Morph Micro Appear 4+ MACROCYTOSIS (NORMAL) 1+ HYPOCHROMASIA (NORMAL) 1+ ANISOCYTOSIS (NORMAL) 04/21/23 07:22 RBC Morph Micro Appear 4+ MACROCYTOSIS (NORMAL) 1+ HYPOCHROMASIA (NORMAL) 1+ ANISOCYTOSIS (NORMAL) 04/21/23 07:22 Sodium 138 mmol/L (135-145) 04/21/23 07:22 Potassium 4.0 mmol/L (3.5-4.5) 04/21/23 07:22 Chloride 108 mmol/L (101-111) 04/21/23 07:22 Carbon Dioxide 23 mmol/L (21-32) 04/21/23 07:22 Anion Gap 7.0 (6-13) 04/21/23 07:22 BUN 12 mg/dL (6-20) 04/21/23 07:22 Creatinine 0.7 mg/dL (0.6-1.3) 04/21/23 07:22 Estimated GFR (MDRD) 84 (>89) L 04/21/23 07:22 Glucose 136 mg/dL (74-104) H 04/21/23 07:22 Lactic Acid 0.6 mmol/L (0.5-2.2) 04/16/23 12:53 Calcium 8.3 mg/dL (8.5-10.3) L 04/21/23 07:22 Magnesium 1.9 mg/dL (1.7-2.3) 04/16/23 13:00 Iron 31 ug/dL (50-212) L 04/19/23 09:58 TIBC TNP 04/19/23 09:58 % Saturation TNP 04/19/23 09:58 Transferrin < 75 mg/dL (203-362) L 04/19/23 09:58 Total Bilirubin 0.5 mg/dL (0.2-1.0) 04/21/23 07:22 AST 22 IU/L (10-42) 04/21/23 07:22 ALT 37 IU/L (10-60) 04/21/23 07:22 Alkaline Phosphatase 207 IU/L (42-121) H 04/21/23 07:22 Troponin I High Sens 26.2 ng/L (2.3-14.8) H* 04/16/23 14:27 Total Protein 4.8 g/dL (6.4-8.9) L 04/21/23 07:22 Albumin 2.3 g/dL (3.2-5.5) L 04/21/23 07:22 Globulin 2.5 g/dL (2.1-4.2) 04/21/23 07:22 Albumin/Globulin Ratio 0.9 (1.0-2.2) L 04/21/23 07:22 Lipase < 10 U/L (11-82) L 04/16/23 12:53 Vitamin B12 6700 pg/mL (180-914) H 04/19/23 09:58 Folate 8.0 ng/mL (5.90 - >24.8) 04/19/23 09:58 TSH 1.99 uIU/mL (0.34-5.60) 04/21/23 07:22 Urine Color YELLOW 04/16/23 15:41 Urine Clarity HAZY (CLEAR) 04/16/23 15:41 Urine pH 6.0 PH (5.0-7.5) 04/16/23 15:41 Ur Specific Deposit 1.020 (1.002-1.030) 04/16/23 15:41 Urine Protein TRACE mg/dL (NEGATIVE) 04/16/23 15:41 Urine Glucose (UA) NEGATIVE mg/dL (NEGATIVE) 04/16/23 15:41 Urine Ketones NEGATIVE mg/dL (NEGATIVE) 04/16/23 15:41 Urine Occult Blood NEGATIVE (NEGATIVE) 04/16/23 15:41 Urine Nitrite NEGATIVE (NEGATIVE) 04/16/23 15:41 Urine Bilirubin NEGATIVE (NEGATIVE) 04/16/23 15:41 Urine Urobilinogen 0.2 (NORMAL) E.U./dL (NORMAL) 04/16/23 15:41 Ur Leukocyte Esterase SMALL (NEGATIVE) H 04/16/23 15:41 Urine RBC None Seen /HPF (0-5) 04/16/23 15:41 Urine WBC 11-25 /HPF (0-5) H 04/16/23 15:41 Ur Squamous Epith Cells FEW Squamous (<= Few) 04/16/23 15:41 Urine Bacteria Many /HPF (None Seen) H 04/16/23 15:41 Ur Microscopic Review INDICATED 04/16/23 15:41 Urine Culture Comments INDICATED 04/16/23 15:41 Urine Creatinine 22.3 mg/dL 04/21/23 10:30 Urine Microalbumin 0.7 mg/dL 04/21/23 10:30 Microalb/Creat Ratio 31.4 ug/mg (<30.0) H 04/21/23 10:30 Nasal Adenovirus (PCR) NOT DETECTED 04/16/23 12:46 Nasal B. parapertussis DNA (PCR) NOT DETECTED 04/16/23 12:46 Nasal Coronavir 229E PCR NOT DETECTED 04/16/23 12:46 Nasal Coronavir HKU1 PCR NOT DETECTED 04/16/23 12:46 Nasal Coronavir NL63 PCR NOT DETECTED 04/16/23 12:46 Nasal Coronavir OC43 PCR NOT DETECTED 04/16/23 12:46 Nasal Enterovir/Rhinovir PCR NOT DETECTED 04/16/23 12:46 Nasal Influenza B PCR NOT DETECTED 04/16/23 12:46 Nasal Influenza A PCR NOT DETECTED 04/16/23 12:46 Nasal Parainfluen 1 PCR NOT DETECTED 04/16/23 12:46 Nasal Parainfluen 2 PCR NOT DETECTED 04/16/23 12:46 Nasal Parainfluen 3 PCR NOT DETECTED 04/16/23 12:46 Nasal Parainfluen 4 PCR NOT DETECTED 04/16/23 12:46 Nasal RSV (PCR) NOT DETECTED 04/16/23 12:46 Nasal B.pertussis DNA PCR NOT DETECTED 04/16/23 12:46 Nasal C.pneumoniae (PCR) NOT DETECTED 04/16/23 12:46 Paresh Human Metapneumo PCR NOT DETECTED 04/16/23 12:46 Nasal M.pneumoniae (PCR) NOT DETECTED 04/16/23 12:46 Nasal SARS-CoV-2 (PCR) NOT DETECTED 04/16/23 12:46 Stl C. cayetanensis PCR Not Detected (Not Detected) 04/18/23 15:58 Stool Rotavirus A PCR Not Detected (Not Detected) 04/18/23 15:58 Stl Adenov F 40/41 PCR Not Detected (Not Detected) 04/18/23 15:58 Stool Astrovirus (PCR) Not Detected (Not Detected) 04/18/23 15:58 Stool Campylobacter PCR Not Detected (Not Detected) 04/18/23 15:58 Stl C. diff Tox A/B PCR Not Detected (Not Detected) 04/18/23 15:58 Stool Cryptosporidium PCR Not Detected (Not Detected) 04/18/23 15:58 Stl Sh Tox Pr E STEC PCR Not Detected (Not Detected) 04/18/23 15:58 Stool E coli O157 PCR Not applicable (Not Detected) 04/18/23 15:58 Stl Enterotoxigenic E PCR Not Detected (Not Detected) 04/18/23 15:58 Stool EPEC (PCR) Not Detected (Not Detected) 04/18/23 15:58 Stl E. histolytica PCR Not Detected (Not Detected) 04/18/23 15:58 Stool Giardia Lamblia PCR Not Detected (Not Detected) 04/18/23 15:58 Stl P. shigelloides PCR Not Detected (Not Detected) 04/18/23 15:58 Stool Salmonella PCR Not Detected (Not Detected) 04/18/23 15:58 Stool Sapovirus (PCR) Not Detected (Not Detected) 04/18/23 15:58 Stl Shigella/EIEC PCR Not Detected (Not Detected) 04/18/23 15:58 St Y.enterocolitica PCR Not Detected (Not Detected) 04/18/23 15:58 Stool Vibrio (PCR) Not Detected (Not Detected) 04/18/23 15:58 Stl Vibrio cholerae PCR Not Detected (Not Detected) 04/18/23 15:58 Stl Enteroaggr Ecoli PCR Not Detected (Not Detected) 04/18/23 15:58 Stl Norovirus GI/GII PCR Not Detected (Not Detected) 04/18/23 15:58 Ethyl Alcohol < 10.0 mg/dL 04/16/23 14:27 - Procedures Procedures: Procedures REPOSITION LEFT UPPER FEMUR WITH INT FIX, OPEN APPROACH (03/05/23) Sepsis Event Note (H) - Evaluation Current Stage of Sepsis: Ruled out Current Medications - Current Medications Current Medications: Active Medications Generic Name Dose Route Start Last Admin Trade Name Freq PRN Reason Stop Dose Admin Acetaminophen 650 mg 04/16/23 20:34 Acetaminophen 325 Mg Tablet PO Q4HR PRN Pain 1 to 4, or Fever Hydrocodone Bitart/Acetaminophen 1 tab 04/18/23 13:09 04/21/23 12:05 Hydrocod/Acetam 5/325 Mg Tablet PO 1 tab Q4HR PRN Administration Moderate Pain (Level 4-6) Albuterol/Ipratropium 3 ml 04/16/23 21:54 Ipratropium/Albuterol 3 Ml Neb INH Q4HR PRN Wheezing Lipase/Protease/Amylase 2 cap 04/18/23 17:00 04/21/23 12:00 Lipase/Protease/Amylase Capsule PO 2 cap TIDWM MODESTA Administration Apixaban 5 mg 04/18/23 14:30 04/21/23 08:09 Apixaban 5 Mg Tablet PO 5 mg BID MODESTA Administration Calcium Citrate 500 mg 04/16/23 22:00 04/21/23 06:08 Calcium Citrate 250 Mg Tablet PO 500 mg TID MODESTA Administration Cholecalciferol 50 mcg 04/17/23 09:00 04/21/23 08:09 Cholecalciferol 25 Mcg Tablet PO 50 mcg DAILY MODESTA Administration Cyanocobalamin 1,000 mcg 04/17/23 09:00 04/21/23 08:09 Cyanocobalamin 500 Mcg Tablet PO 1,000 mcg DAILY MODESTA Administration Diclofenac Sodium 50 gm 04/17/23 09:00 04/21/23 11:38 Diclofenac Sodium 1% Gel 50 Gm Tube TOP Not Given BID MODESTA Docusate Sodium 100 mg 04/16/23 21:17 Docusate Sodium 100 Mg Capsule PO BID PRN Constipation Fentanyl 25 mcg 04/18/23 13:10 Fentanyl 100 Mcg/2 Ml Vial IVP Q2HR PRN Severe Pain (Level 7-10) Ferrous Sulfate 325 mg 04/18/23 21:00 04/21/23 08:09 Ferrous Sulfate 325 Mg Tablet PO 325 mg BID MODESTA Administration Furosemide 40 mg 04/20/23 09:00 04/21/23 07:57 Furosemide 40 Mg/4 Ml Vial IVP 40 mg DAILY MODESTA Administration Ceftriaxone Sodium 2 gm/ 100 mls @ 200 mls/hr 04/17/23 09:00 04/21/23 09:00 Sodium Chloride IV Infused DAILY [facility] Infusion Ketorolac Tromethamine 30 mg 04/17/23 13:00 04/21/23 07:54 Ketorolac 30 Mg/Ml Vial IVP 04/22/23 12:59 30 mg Q6HR PRN Administration Severe Pain (Level 7-10) Levothyroxine Sodium 100 mcg 04/17/23 07:00 04/21/23 06:08 Levothyroxine 100 Mcg Tablet PO 100 mcg QDAC [facility] Administration Methocarbamol 750 mg 04/16/23 21:34 04/20/23 05:49 Methocarbamol 500 Mg Tablet PO 750 mg QID PRN Administration Spasms Metoprolol Tartrate 25 mg 04/20/23 09:00 04/21/23 08:09 Metoprolol Tartrate 25 Mg Tablet PO 25 mg BID MODESTA Administration Mirtazapine 15 mg 04/20/23 21:00 04/20/23 21:18 Mirtazapine 15 Mg Tablet PO 15 mg QPM MODESTA Administration Nicotine 1 patch 04/17/23 00:05 04/21/23 11:39 Nicotine 7 Mg Patch TOP Not Given DAILY [facility] Ondansetron HCl 4 mg 04/16/23 20:34 04/19/23 16:27 Ondansetron Odt 4 Mg Tablet TL 4 mg Q6HR PRN Administration Nausea / Vomiting Ondansetron HCl 4 mg 04/16/23 20:34 Ondansetron 4 Mg/2 Ml Vial IVP Q6HR PRN Nausea / Vomiting Ondansetron HCl 4 mg 04/16/23 21:35 Ondansetron Odt 4 Mg Tablet PO Q4HR PRN Nausea / Vomiting Pantoprazole Sodium 40 mg 04/20/23 09:00 04/21/23 06:08 Pantoprazole 40 Mg Tablet PO 40 mg BIDAC MODESTA Administration Potassium Chloride 20 meq 04/20/23 08:00 04/21/23 08:10 Potassium Chloride 20 Meq Tablet PO 20 meq DAILYWM MODESTA Administration Sodium Chloride 10 ml 04/16/23 20:34 04/20/23 08:54 Sodium Chloride Flush 0.9% 10 Ml Syringe IVP 10 ml PRN PRN Administration NEEDED PER PROVIDER ORDERS Sodium Chloride 10 ml 04/17/23 01:00 04/21/23 08:10 Sodium Chloride Flush 0.9% 10 Ml Syringe IVP 10 ml 0100,0900,1700 MODESTA Administration Thiamine HCl 100 mg 04/17/23 09:00 04/21/23 08:10 Thiamine 100 Mg Tablet PO 100 mg DAILY [facility] Administration methocarbamoL [Methocarbamol] 750 mg PO Q6H 02/28/15 Cyanocobalamin (Vitamin B-12) [Vitamin B-12] 1,000 mcg PO DAILY 03/05/23 Ferrous Sulfate 325 mg PO BID 03/05/23 Levothyroxine [Synthroid] 100 mcg PO QDAC 03/05/23 Lipase/Protease/Amylase [Alejandra Dr 6,000 Unit Capsule] 1 - 2 ea PO DAILY 03/05/23 Ondansetron HCl 4 mg PO Q8HR PRN 03/05/23 Pantoprazole Sodium 40 mg PO DAILY 03/05/23 Furosemide [Lasix] 10 mg PO DAILY PRN 04/18/23
[2023-04-21] MEDS: methocarbamoL 500 MG TABLET PO PRN (16:40)
[2023-04-21] MEDS: MIRTAZAPINE 15 MG TABLET PO SCH (21:09)
[2023-04-22] MEDS: CALCIUM CITRATE 250 MG TABLET PO SCH ×3 (06:07→21:03)
[2023-04-22] MEDS: LEVOTHYROXINE 100 MCG TABLET PO SCH (06:08)
[2023-04-22] MEDS: PANTOPRAZOLE 40 MG TABLET PO SCH ×2 (06:08→15:35)
[2023-04-22] MEDS: LIPASE/PROTEASE/AMYLASE CAPSULE PO SCH ×4 (08:21→17:17)
[2023-04-22] MEDS: DICLOFENAC SODIUM 1% GEL 50 GM TUBE TOP SCH ×2 (08:25→21:04)
[2023-04-22] MEDS: APIXABAN 5 MG TABLET PO SCH ×2 (08:26→21:03)
[2023-04-22] MEDS: METOPROLOL TARTRATE 25 MG TABLET PO SCH ×2 (08:26→21:03)
[2023-04-22] MEDS: cefTRIAXone 2 GM in SODIUM CHLORIDE 0.9% MINIBAG 100 ML IV SCH (09:24)
[2023-04-22] MEDS: HYDROcod/ACETAM 5/325 MG TABLET PO PRN ×3 (09:25→19:56)
--- NOTE | 2023-04-22 11:40 | PROVIDER PROGRESS NOTE ---
Assessment/Plan - Problem List (1) Bacteremia Assessment/Plan: (1) Bacteremia Assessment/Plan: -- Blood cultures preliminarily showing E. coli. Urine cultures revealed Citrobacter Freundii she is currently being covered with IV ceftriaxone. -- Repeat blood cultures showing no growth to date. --Will likely need 10-14 days of antibiotics. (2) Pulmonary embolism Assessment/Plan: --CTA chest showing evidence of subsegmental PE with wedge-shaped infarc. This was discussed with theatrical variety agent at [facility] and suggest that the PE was too small for any intervention. She was admitted and started on Eliquis 10 mg twice daily. -- In discussion with pharmacy, will start patient on Eliquis 5 mg twice daily as she is having worsening anemia. This is likely due to bone marrow suppression from her history of alcohol use and malnutrition. There is been no evidence of bleeding. -- TTE was performed on 04/18. There is no evidence of any RV strain. 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 Continue home B12 medications. -- We will decrease dose of Eliquis to 5 mg twice daily due to her anemia. -- We will obtain iron, folate, B12 if she allows us to draw blood. (4) Fall from ground level Assessment/Plan: --Negative for ORIF complication on XR (5) Intertrochanteric fracture Qualifiers: Encounter type: initial encounter Fracture type: closed Fracture alig nment: nondisplaced Laterality: left Qualified Code(s): S72.145A - Nondisplaced intertrochanteric fracture of left femur, initial encounter for closed fracture (6) Metabolic acidosis Assessment/Plan: --Resolved. (7) Abdominal pain Qualifiers: Abdominal location: epigastric Qualified Code(s): R10.13 - Epigastric pain Assessment/Plan: --Complaining of epigastric pain after eating. CT abd/pelvis showing third spacing. Initiated patient on IV lasix. --Urine microalbumin:cr ratio pending to r/o urine wasting of protein. --Will order a Lipase --Will start protonix 40 mg BID due to concern for peptic ulcer disease. --Will order a stool occult to rule out bleeding. (8) SVT (supraventricular tachycardia) Assessment/Plan: --Self terminating episode of SVT yesterday. --TTE was unremarkable. --Started on metoprolol 25 mg BID. (3) Anemia Qualifiers: Anemia type: unspecified type Qualified Code(s): D64.9 - Anemia, unspecified (5) Intertrochanteric fracture Qualifiers: Encounter type: initial encounter Fracture type: closed Fracture alignment: nondisplaced Laterality: left Qualified Code(s): S72.145A - Non displaced intertrochanteric fracture of left femur, initial encounter for closed fracture (7) Abdominal pain Qualifiers: Abdominal location: epigastric Qualified Code(s): R10.13 - Epigastric pain (9) Severe protein-calorie malnutrition Assessment/Plan: --Patient has been eating more over the last 48 hours. --Will add nutritional supplements daily. (10) Metabolic encephalopathy Assessment/Plan: --Encephalopathy has improved. She was significantly more lucid and talkative this morning. --Her POA came to visit her yesterday and I believe this engagement was beneficial. - Current Meds Current Meds: Current Medications Generic Name Dose Route Start Last Admin Trade Name Freq PRN Reason Stop Dose Admin Hydrocodone Bitart/Acetaminophen 1 tab 04/18/23 13:09 04/22/23 09:25 Hydrocod/Acetam 5/325 Mg Tablet PO 1 tab Q4HR PRN Administration Moderate Pain (Level 4-6) Lipase/Protease/Amylase 2 cap 04/18/23 17:00 04/22/23 08:21 Lipase/Protease/Amylase Capsule PO 2 cap TIDWM MODESTA Administration Apixaban 5 mg 04/18/23 14:30 04/22/23 08:26 Apixaban 5 Mg Tablet PO 5 mg BID MODESTA Administration Calcium Citrate 500 mg 04/16/23 22:00 04/22/23 06:07 Calcium Citrate 250 Mg Tablet PO Not Given TID MODESTA Cholecalciferol 50 mcg 04/17/23 09:00 04/21/23 08:09 Cholecalciferol 25 Mcg Tablet PO 50 mcg DAILY MODESTA Administration Cyanocobalamin 1,000 mcg 04/17/23 09:00 04/21/23 08:09 Cyanocobalamin 500 Mcg Tablet PO 1,000 mcg DAILY MODESTA Administration Diclofenac Sodium 50 gm 04/17/23 09:00 04/22/23 08:25 Diclofenac Sodium 1% Gel 50 Gm Tube TOP 50 gm BID MODESTA Administration Ferrous Sulfate 325 mg 04/18/23 21:00 04/21/23 21:09 Ferrous Sulfate 325 Mg Tablet PO 325 mg BID MODESTA Administration Furosemide 40 mg 04/20/23 09:00 04/21/23 07:57 Furosemide 40 Mg/4 Ml Vial IVP 40 mg DAILY MODESTA Administration Ceftriaxone Sodium 2 gm/ 100 mls @ 200 mls/hr 04/17/23 09:00 04/22/23 09:24 Sodium Chloride IV 200 mls/hr DAILY MODESTA Administration Ketorolac Tromethamine 30 mg 04/17/23 13:00 04/21/23 23:58 Ketorolac 30 Mg/Ml Vial IVP 04/22/23 12:59 30 mg Q6HR PRN Administration Severe Pain (Level 7-10) Levothyroxine Sodium 100 mcg 04/17/23 07:00 04/22/23 06:08 Levothyroxine 100 Mcg Tablet PO 100 mcg QDAC MODESTA Administration Methocarbamol 750 mg 04/16/23 21:34 04/21/23 16:40 Methocarbamol 500 Mg Tablet PO 750 mg QID PRN Administration Spasms Metoprolol Tartrate 25 mg 04/20/23 09:00 04/22/23 08:26 Metoprolol Tartrate 25 Mg Tablet PO 25 mg BID MODESTA Administration Mirtazapine 15 mg 04/20/23 21:00 04/21/23 21:09 Mirtazapine 15 Mg Tablet PO 15 mg QPM MODESTA Administration Nicotine 1 patch 04/17/23 00:05 04/21/23 11:39 Nicotine 7 Mg Patch TOP Not Given DAILY [facility] Ondansetron HCl 4 mg 04/16/23 20:34 04/19/23 16:27 Ondansetron Odt 4 Mg Tablet TL 4 mg Q6HR PRN Administration Nausea / Vomiting Pantoprazole Sodium 40 mg 04/20/23 09:00 04/22/23 06:08 Pantoprazole 40 Mg Tablet PO 40 mg BIDAC MODESTA Administration Potassium Chloride 20 meq 04/20/23 08:00 04/21/23 08:10 Potassium Chloride 20 Meq Tablet PO 20 meq DAILYWM MODESTA Administration Sodium Chloride 10 ml 04/16/23 20:34 04/20/23 08:54 Sodium Chloride Flush 0.9% 10 Ml Syringe IVP 10 ml PRN PRN Administration NEEDED PER PROVIDER ORDERS Sodium Chloride 10 ml 04/17/23 01:00 04/21/23 23:58 Sodium Chloride Flush 0.9% 10 Ml Syringe IVP 10 ml 0100,0900,1700 MODESTA Administration Thiamine HCl 100 mg 04/17/23 09:00 04/21/23 08:10 Thiamine 100 Mg Tablet PO 100 mg DAILY MODESTA Administration - Lab Result Fish Bone Diagrams: 04/21/23 07:22 04/21/23 07:22 - Additional Planning My Orders: My Active Orders 04/23/23 Palliative Care Consult [CONS] Routine Subjective - Subjective Patient Reports: Feeling Better (Significant improvement in mental status. She was AOx3. Continues to complain of pain all over her body which as not changed. We had a good conversation today. She took me through her rehabilitation course and previous hospitalizations. I am hopeful she can discharge soon.), Resting Comfortably, Pain Objective Vital Signs: Vital Signs - 24 hr 04/21/23 04/21/23 04/22/23 16:00 21:09 04:12 Temperature 36.6 C 36.5 C Heart Rate [ 86 77 Brachial] Respiratory 16 16 Rate Blood Pressure 110/61 Blood Pressure 102/53 L 117/58 L [Right Brachial artery] O2 Saturation 98 98 04/22/23 08:26 Temperature Heart Rate [ Brachial] Respiratory Rate Blood Pressure 117/58 L Blood Pressure [Right Brachial artery] O2 Saturation Oxygen O2 Source Room air I&O (Last 24 Hrs): Intake and Output Totals x24h 04/20/23 04/21/23 04/22/23 23:59 23:59 23:59 Intake Total 1330 510 Output Total 175 100 Balance 1155 510 -100 General: Alert, Oriented x3, Cooperative, No acute distress Neuro: Alert, CN 2-12 Grossly Intact, Oriented Times 3 Cardiovascular: Regular rate, Normal S1, Normal S2, No murmurs Respiratory: Chest non-tender, No respiratory distress, Breath sounds nml Abdomen: Normal bowel sounds, Soft, No tenderness, No hepatospenomegaly, No masses Extremities: No clubbing, No cyanosis, No edema, Normal pulses, No tenderness/swelling - Results Results: Laboratory Results WBC 14.3 x10^3/uL (4.8-10.8) H 04/21/23 07:22 RBC 2.32 10^6/uL (4.20-5.40) L 04/21/23 07:22 Hgb 9.2 g/dL (12.0-16.0) L 04/21/23 07:22 Hct 29.0 % (37.0-47.0) L 04/21/23 07:22 MCV 125.0 fL (81.0-99.0) H 04/21/23 07:22 MCH 39.7 pg (27.0-31.0) H 04/21/23 07:22 MCHC 31.7 g/dL (32.0-36.0) L 04/21/23 07:22 RDW 15.3 % (12.0-15.0) H 04/21/23 07:22 Plt Count 68 10^3/uL (130-450) L 04/21/23 07:22 MPV 12.0 fL (7.9-10.8) H 04/21/23 07:22 Neut # (Auto) 10.8 10^3/uL (1.5-6.6) H 04/21/23 07:22 Lymph # (Auto) 2.0 10^3/uL (1.5-3.5) 04/21/23 07:22 [place] # (Auto) 1.1 10^3/uL (0.0-1.0) H 04/21/23 07:22 Eos # (Auto) 0.1 10^3/uL (0.0-0.7) 04/21/23 07:22 Baso # (Auto) 0.1 10^3/uL (0.0-0.1) 04/21/23 07:22 Absolute Nucleated RBC 0.00 x10^3/uL 04/21/23 07:22 Total Counted 100 04/16/23 12:53 Band Neuts % (Manual) Not Reportable 04/18/23 08:07 Reactive Lymphs % (Man) 2 % 04/16/23 12:53 Abnorm Lymph % (Manual) Not Reportable 04/18/23 08:07 Nucleated RBC % 0.0 /100WBC 04/21/23 07:22 Neutrophils # (Manual) Not Reportable 04/18/23 08:07 Lymphocytes # (Manual) Not Reportable 04/18/23 08:07 Monocytes # (Manual) Not Reportable 04/18/23 08:07 Eosinophils # (Manual) Not Reportable 04/18/23 08:07 Basophils # (Manual) Not Reportable 04/18/23 08:07 Differential Comment MANUAL=AUTO DIFF 04/18/23 08:07 Manual Slide Review Indicated 04/21/23 07:22 WBC Morphology NORMAL APPEARANCE (NORMAL) 04/21/23 07:22 Platelet Estimate DECREASED (<130,000) (NORMAL) 04/21/23 07:22 Platelet Morphology NORMAL APPEARANCE (NORMAL) 04/21/23 07:22 RBC Morph Micro Appear 4+ MACROCYTOSIS (NORMAL) 1+ HYPOCHROMASIA (NORMAL) 1+ ANISOCYTOSIS (NORMAL) 04/21/23 07:22 RBC Morph Micro Appear 4+ MACROCYTOSIS (NORMAL) 1+ HYPOCHROMASIA (NORMAL) 1+ ANISOCYTOSIS (NORMAL) 04/21/23 07:22 RBC Morph Micro Appear 4+ MACROCYTOSIS (NORMAL) 1+ HYPOCHROMASIA (NORMAL) 1+ ANISOCYTOSIS (NORMAL) 04/21/23 07:22 Sodium 138 mmol/L (135-145) 04/21/23 07:22 Potassium 4.0 mmol/L (3.5-4.5) 04/21/23 07:22 Chloride 108 mmol/L (101-111) 04/21/23 07:22 Carbon Dioxide 23 mmol/L (21-32) 04/21/23 07:22 Anion Gap 7.0 (6-13) 04/21/23 07:22 BUN 12 mg/dL (6-20) 04/21/23 07:22 Creatinine 0.7 mg/dL (0.6-1.3) 04/21/23 07:22 Estimated GFR (MDRD) 84 (>89) L 04/21/23 07:22 Glucose 136 mg/dL (74-104) H 04/21/23 07:22 Lactic Acid 0.6 mmol/L (0.5-2.2) 04/16/23 12:53 Calcium 8.3 mg/dL (8.5-10.3) L 04/21/23 07:22 Magnesium 1.9 mg/dL (1.7-2.3) 04/16/23 13:00 Iron 31 ug/dL (50-212) L 04/19/23 09:58 TIBC TNP 04/19/23 09:58 % Saturation TNP 04/19/23 09:58 Transferrin < 75 mg/dL (203-362) L 04/19/23 09:58 Total Bilirubin 0.5 mg/dL (0.2-1.0) 04/21/23 07:22 AST 22 IU/L (10-42) 04/21/23 07:22 ALT 37 IU/L (10-60) 04/21/23 07:22 Alkaline Phosphatase 207 IU/L (42-121) H 04/21/23 07:22 Troponin I High Sens 26.2 ng/L (2.3-14.8) H* 04/16/23 14:27 Total Protein 4.8 g/dL (6.4-8.9) L 04/21/23 07:22 Albumin 2.3 g/dL (3.2-5.5) L 04/21/23 07:22 Globulin 2.5 g/dL (2.1-4.2) 04/21/23 07:22 Albumin/Globulin Ratio 0.9 (1.0-2.2) L 04/21/23 07:22 Lipase < 10 U/L (11-82) L 04/16/23 12:53 Vitamin B12 6700 pg/mL (180-914) H 04/19/23 09:58 Vitamin D 25-Hydroxy 37.6 ng/mL (30.0-100.0) 04/21/23 07:22 Folate 8.0 ng/mL (5.90 - >24.8) 04/19/23 09:58 TSH 1.99 uIU/mL (0.34-5.60) 04/21/23 07:22 Urine Color YELLOW 04/16/23 15:41 Urine Clarity HAZY (CLEAR) 04/16/23 15:41 Urine pH 6.0 PH (5.0-7.5) 04/16/23 15:41 Ur Specific [place] 1.020 (1.002-1.030) 04/16/23 15:41 Urine Protein TRACE mg/dL (NEGATIVE) 04/16/23 15:41 Urine Glucose (UA) NEGATIVE mg/dL (NEGATIVE) 04/16/23 15:41 Urine Ketones NEGATIVE mg/dL (NEGATIVE) 04/16/23 15:41 Urine Occult Blood NEGATIVE (NEGATIVE) 04/16/23 15:41 Urine Nitrite NEGATIVE (NEGATIVE) 04/16/23 15:41 Urine Bilirubin NEGATIVE (NEGATIVE) 04/16/23 15:41 Urine Urobilinogen 0.2 (NORMAL) E.U./dL (NORMAL) 04/16/23 15:41 Ur Leukocyte Esterase SMALL (NEGATIVE) H 04/16/23 15:41 Urine RBC None Seen /HPF (0-5) 04/16/23 15:41 Urine WBC 11-25 /HPF (0-5) H 04/16/23 15:41 Ur Squamous Epith Cells FEW Squamous (<= Few) 04/16/23 15:41 Urine Bacteria Many /HPF (None Seen) H 04/16/23 15:41 Ur Microscopic Review INDICATED 04/16/23 15:41 Urine Culture Comments INDICATED 04/16/23 15:41 Urine Creatinine 22.3 mg/dL 04/21/23 10:30 Urine Microalbumin 0.7 mg/dL 04/21/23 10:30 Microalb/Creat Ratio 31.4 ug/mg (<30.0) H 04/21/23 10:30 Nasal Adenovirus (PCR) NOT DETECTED 04/16/23 12:46 Nasal B. parapertussis DNA (PCR) NOT DETECTED 04/16/23 12:46 Nasal Coronavir 229E PCR NOT DETECTED 04/16/23 12:46 Nasal Coronavir HKU1 PCR NOT DETECTED 04/16/23 12:46 Nasal Coronavir NL63 PCR NOT DETECTED 04/16/23 12:46 Nasal Coronavir OC43 PCR NOT DETECTED 04/16/23 12:46 Nasal Enterovir/Rhinovir PCR NOT DETECTED 04/16/23 12:46 Nasal Influenza B PCR NOT DETECTED 04/16/23 12:46 Nasal Influenza A PCR NOT DETECTED 04/16/23 12:46 Nasal Parainfluen 1 PCR NOT DETECTED 04/16/23 12:46 Nasal Parainfluen 2 PCR NOT DETECTED 04/16/23 12:46 Nasal Parainfluen 3 PCR NOT DETECTED 04/16/23 12:46 Nasal Parainfluen 4 PCR NOT DETECTED 04/16/23 12:46 Nasal RSV (PCR) NOT DETECTED 04/16/23 12:46 Nasal B.pertussis DNA PCR NOT DETECTED 04/16/23 12:46 Nasal C.pneumoniae (PCR) NOT DETECTED 04/16/23 12:46 Paresh Human Metapneumo PCR NOT DETECTED 04/16/23 12:46 Nasal M.pneumoniae (PCR) NOT DETECTED 04/16/23 12:46 Nasal SARS-CoV-2 (PCR) NOT DETECTED 04/16/23 12:46 Stl C. cayetanensis PCR Not Detected (Not Detected) 04/18/23 15:58 Stool Rotavirus A PCR Not Detected (Not Detected) 04/18/23 15:58 Stl Adenov F 40/41 PCR Not Detected (Not Detected) 04/18/23 15:58 Stool Astrovirus (PCR) Not Detected (Not Detected) 04/18/23 15:58 Stool Campylobacter PCR Not Detected (Not Detected) 04/18/23 15:58 Stl C. diff Tox A/B PCR Not Detected (Not Detected) 04/18/23 15:58 Stool Cryptosporidium PCR Not Detected (Not Detected) 04/18/23 15:58 Stl Sh Tox Pr E STEC PCR Not Detected (Not Detected) 04/18/23 15:58 Stool E coli O157 PCR Not applicable (Not Detected) 04/18/23 15:58 Stl Enterotoxigenic E PCR Not Detected (Not Detected) 04/18/23 15:58 Stool EPEC (PCR) Not Detected (Not Detected) 04/18/23 15:58 Stl E. histolytica PCR Not Detected (Not Detected) 04/18/23 15:58 Stool Giardia Lamblia PCR Not Detected (Not Detected) 04/18/23 15:58 Stl P. shigelloides PCR Not Detected (Not Detected) 04/18/23 15:58 Stool Salmonella PCR Not Detected (Not Detected) 04/18/23 15:58 Stool Sapovirus (PCR) Not Detected (Not Detected) 04/18/23 15:58 Stl Shigella/EIEC PCR Not Detected (Not Detected) 04/18/23 15:58 St Y.enterocolitica PCR Not Detected (Not Detected) 04/18/23 15:58 Stool Vibrio (PCR) Not Detected (Not Detected) 04/18/23 15:58 Stl Vibrio cholerae PCR Not Detected (Not Detected) 04/18/23 15:58 Stl Enteroaggr Ecoli PCR Not Detected (Not Detected) 04/18/23 15:58 Stl Norovirus GI/GII PCR Not Detected (Not Detected) 04/18/23 15:58 Ethyl Alcohol < 10.0 mg/dL 04/16/23 14:27 - Procedures Procedures: Procedures REPOSITION LEFT UPPER FEMUR WITH INT FIX, OPEN APPROACH (03/05/23) Sepsis Event Note (H) - Evaluation Current Stage of Sepsis: Ruled out Current Medications - Current Medications Current Medications: Active Medications Generic Name Dose Route Start Last Admin Trade Name Freq PRN Reason Stop Dose Admin Acetaminophen 650 mg 04/16/23 20:34 Acetaminophen 325 Mg Tablet PO Q4HR PRN Pain 1 to 4, or Fever Hydrocodone Bitart/Acetaminophen 1 tab 04/18/23 13:09 04/22/23 09:25 Hydrocod/Acetam 5/325 Mg Tablet PO 1 tab Q4HR PRN Administration Moderate Pain (Level 4-6) Albuterol/Ipratropium 3 ml 04/16/23 21:54 Ipratropium/Albuterol 3 Ml Neb INH Q4HR PRN Wheezing Lipase/Protease/Amylase 2 cap 04/18/23 17:00 04/22/23 08:21 Lipase/Protease/Amylase Capsule PO 2 cap TIDWM MODESTA Administration Apixaban 5 mg 04/18/23 14:30 04/22/23 08:26 Apixaban 5 Mg Tablet PO 5 mg BID MODESTA Administration Calcium Citrate 500 mg 04/16/23 22:00 04/22/23 06:07 Calcium Citrate 250 Mg Tablet PO Not Given TID MODESTA Cholecalciferol 50 mcg 04/17/23 09:00 04/21/23 08:09 Cholecalciferol 25 Mcg Tablet PO 50 mcg DAILY MODESTA Administration Cyanocobalamin 1,000 mcg 04/17/23 09:00 04/21/23 08:09 Cyanocobalamin 500 Mcg Tablet PO 1,000 mcg DAILY MODESTA Administration Diclofenac Sodium 50 gm 04/17/23 09:00 04/22/23 08:25 Diclofenac Sodium 1% Gel 50 Gm Tube TOP 50 gm BID MODESTA Administration Docusate Sodium 100 mg 04/16/23 21:17 Docusate Sodium 100 Mg Capsule PO BID PRN Constipation Fentanyl 25 mcg 04/18/23 13:10 Fentanyl 100 Mcg/2 Ml Vial IVP Q2HR PRN Severe Pain (Level 7-10) Ferrous Sulfate 325 mg 04/18/23 21:00 04/21/23 21:09 Ferrous Sulfate 325 Mg Tablet PO 325 mg BID MODESTA Administration Furosemide 40 mg 04/20/23 09:00 04/21/23 07:57 Furosemide 40 Mg/4 Ml Vial IVP 40 mg DAILY MODESTA Administration Ceftriaxone Sodium 2 gm/ 100 mls @ 200 mls/hr 04/17/23 09:00 04/22/23 09:24 Sodium Chloride IV 200 mls/hr DAILY MODESTA Administration Ketorolac Tromethamine 30 mg 04/17/23 13:00 04/21/23 23:58 Ketorolac 30 Mg/Ml Vial IVP 04/22/23 12:59 30 mg Q6HR PRN Administration Severe Pain (Level 7-10) Levothyroxine Sodium 100 mcg 04/17/23 07:00 04/22/23 06:08 Levothyroxine 100 Mcg Tablet PO 100 mcg QDAC MODESTA Administration Methocarbamol 750 mg 04/16/23 21:34 04/21/23 16:40 Methocarbamol 500 Mg Tablet PO 750 mg QID PRN Administration Spasms Metoprolol Tartrate 25 mg 04/20/23 09:00 04/22/23 08:26 Metoprolol Tartrate 25 Mg Tablet PO 25 mg BID MODESTA Administration Mirtazapine 15 mg 04/20/23 21:00 04/21/23 21:09 Mirtazapine 15 Mg Tablet PO 15 mg QPM MODESTA Administration Nicotine 1 patch 04/17/23 00:05 04/21/23 11:39 Nicotine 7 Mg Patch TOP Not Given DAILY [facility] Ondansetron HCl 4 mg 04/16/23 20:34 04/19/23 16:27 Ondansetron Odt 4 Mg Tablet TL 4 mg Q6HR PRN Administration Nausea / Vomiting Ondansetron HCl 4 mg 04/16/23 20:34 Ondansetron 4 Mg/2 Ml Vial IVP Q6HR PRN Nausea / Vomiting Ondansetron HCl 4 mg 04/16/23 21:35 Ondansetron Odt 4 Mg Tablet PO Q4HR PRN Nausea / Vomiting Pantoprazole Sodium 40 mg 04/20/23 09:00 04/22/23 06:08 Pantoprazole 40 Mg Tablet PO 40 mg BIDAC MODESTA Administration Potassium Chloride 20 meq 04/20/23 08:00 04/21/23 08:10 Potassium Chloride 20 Meq Tablet PO 20 meq DAILYWM MODESTA Administration Sodium Chloride 10 ml 04/16/23 20:34 04/20/23 08:54 Sodium Chloride Flush 0.9% 10 Ml Syringe IVP 10 ml PRN PRN Administration NEEDED PER PROVIDER ORDERS Sodium Chloride 10 ml 04/17/23 01:00 04/21/23 23:58 Sodium Chloride Flush 0.9% 10 Ml Syringe IVP 10 ml 0100,0900,1700 MODESTA Administration Thiamine HCl 100 mg 04/17/23 09:00 04/21/23 08:10 Thiamine 100 Mg Tablet PO 100 mg DAILY MODESTA Administration methocarbamoL [Methocarbamol] 750 mg PO Q6H 02/28/15 Cyanocobalamin (Vitamin B-12) [Vitamin B-12] 1,000 mcg PO DAILY 03/05/23 Ferrous Sulfate 325 mg PO BID 03/05/23 Levothyroxine [Synthroid] 100 mcg PO QDAC 03/05/23 Lipase/Protease/Amylase [Alejandra Gr 6,000 Unit Capsule] 1 - 2 ea PO DAILY 03/05/23 Ondansetron HCl 4 mg PO Q8HR PRN 03/05/23 Pantoprazole Sodium 40 mg PO DAILY 03/05/23 Furosemide [Lasix] 10 mg PO DAILY PRN 04/18/23
[2023-04-22] MEDS: FERROUS SULFATE 325 MG TABLET PO SCH ×2 (11:54→21:03)
[2023-04-22] MEDS: CYANOCOBALAMIN 500 MCG TABLET PO SCH (11:54)
[2023-04-22] MEDS: CHOLECALCIFEROL 25 MCG TABLET PO SCH (11:54)
[2023-04-22] MEDS: POTASSIUM CHLORIDE 20 MEQ TABLET PO SCH (11:54)
[2023-04-22] MEDS: NICOTINE 7 MG PATCH TOP SCH (11:54)
[2023-04-22] MEDS: THIAMINE 100 MG TABLET PO SCH (11:55)
[2023-04-22] MEDS: FUROSEMIDE 40 MG/4 ML VIAL IVP SCH (12:57)
[2023-04-22] MEDS: SODIUM CHLORIDE FLUSH 0.9% 10 ML SYRINGE IVP SCH ×2 (12:59→15:37)
[2023-04-22] MEDS: methocarbamoL 500 MG TABLET PO PRN (15:35)
[2023-04-22] MEDS: MIRTAZAPINE 15 MG TABLET PO SCH (21:03)
[2023-04-23] MEDS: SODIUM CHLORIDE FLUSH 0.9% 10 ML SYRINGE IVP SCH ×3 (00:54→17:06)
[2023-04-23] MEDS: HYDROcod/ACETAM 5/325 MG TABLET PO PRN ×4 (01:10→21:28)
[2023-04-23] MEDS: PANTOPRAZOLE 40 MG TABLET PO SCH ×2 (06:30→16:18)
[2023-04-23] MEDS: LEVOTHYROXINE 100 MCG TABLET PO SCH (06:30)
[2023-04-23] MEDS: CALCIUM CITRATE 250 MG TABLET PO SCH ×3 (06:31→21:32)
[2023-04-23] MEDS: DICLOFENAC SODIUM 1% GEL 50 GM TUBE TOP SCH ×2 (07:48→21:29)
[2023-04-23] MEDS: cefTRIAXone 2 GM in SODIUM CHLORIDE 0.9% MINIBAG 100 ML IV SCH (07:49)
[2023-04-23] MEDS: NICOTINE 7 MG PATCH TOP SCH ×2 (07:50→08:04)
[2023-04-23] MEDS: FUROSEMIDE 40 MG/4 ML VIAL IVP SCH (07:50)
[2023-04-23] MEDS: POTASSIUM CHLORIDE 20 MEQ TABLET PO SCH (07:51)
[2023-04-23] MEDS: LIPASE/PROTEASE/AMYLASE CAPSULE PO SCH ×3 (07:51→17:06)
[2023-04-23] MEDS: FERROUS SULFATE 325 MG TABLET PO SCH ×2 (07:51→21:28)
[2023-04-23] MEDS: CYANOCOBALAMIN 500 MCG TABLET PO SCH (07:51)
[2023-04-23] MEDS: CHOLECALCIFEROL 25 MCG TABLET PO SCH (07:52)
[2023-04-23] MEDS: THIAMINE 100 MG TABLET PO SCH (07:52)
[2023-04-23] MEDS: METOPROLOL TARTRATE 25 MG TABLET PO SCH ×2 (07:52→21:29)
[2023-04-23] MEDS: APIXABAN 5 MG TABLET PO SCH ×2 (07:52→21:28)
[2023-04-23] MEDS ORDERED: FUROSEMIDE 20 MG TABLET PO ONE (08:00)
--- NOTE | 2023-04-23 13:08 | PROVIDER PROGRESS NOTE ---
Assessment/Plan - Problem List (1) Bacteremia Assessment/Plan: (1) Bacteremia Assessment/Plan: -- Blood cultures preliminarily showing E. coli. Urine cultures revealed Citrobacter Freundii she is currently being covered with IV ceftriaxone. -- Repeat blood cultures showing no growth to date. --Will likely need 10-14 days of antibiotics. Will transition to cefdinir 300 mg BID as an outpatient. She will need antibiotics until 04/27. (2) Pulmonary embolism Assessment/Plan: --CTA chest showing evidence of subsegmental PE with wedge-shaped infarc. This was discussed with chief librarian branch or department at [facility] and suggest that the PE was too small for any intervention. She was admitted and started on Eliquis 10 mg twice daily. -- In discussion with pharmacy, will start patient on Eliquis 5 mg twice daily as she is having worsening anemia. This is likely due to bone marrow suppression from her history of alcohol use and malnutrition. There is been no evidence of bleeding. -- TTE was performed on 04/18. There is no evidence of any RV strain. 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 Continue home B12 medications. -- We will decrease dose of Eliquis to 5 mg twice daily due to her anemia. (4) Fall from ground level Assessment/Plan: --Negative for ORIF complication on XR (5) Intertrochanteric fracture Qualifiers: Encounter type: initial encounter Fracture type: closed Fracture alignment: nondisplaced Laterality: left Qualified Code(s): S72.145A - Nondisplaced intertrochanteric fracture of left femur, initial encounter for closed fracture (6) Metabolic acidosis Assessment/Plan: --Resolved. (7) Abdominal pain Qualifiers: Abdominal location: epigastric Qualified Code(s): R10.13 - Epigastric pain Assessment/Plan: --Complaining of epigastric pain after eating. CT abd/pelvis showing third spacing. Initiated patient on IV lasix for 3 days. She is now on Lasix 20 mg daily. --Will start protonix 40 mg BID due to concern for peptic ulcer disease. (8) SVT (supraventricular tachycardia) Assessment/Plan: --Self terminating episode of SVT yesterday. --TTE was unremarkable. --Started on metoprolol 25 mg BID. Dispo: Discharge planning. She will be discharged in the next 24-48 hours p ending PT/OT assessment. Likely will need home health. (3) Anemia Qualifiers: Anemia type: unspecified type Qualified Code(s): D64.9 - Anemia, unspecified (5) Intertrochanteric fracture Qualifiers: Encounter type: initial encounter Fracture type: closed Fracture alignment: nondisplaced Laterality: left Qualified Code(s): S72.145A - Nondisplaced intertrochanteric fracture of left femur, initial encounter for closed fracture (7) Abdominal pain Qualifiers: Abdominal location: epigastric Qualified Code(s): R10.13 - Epigastric pain - Current Meds Current Meds: Current Medications Generic Name Dose Route Start Last Admin Trade Name Freq PRN Reason Stop Dose Admin Hydrocodone Bitart/Acetaminophen 1 tab 04/18/23 13:09 04/23/23 06:43 Hydrocod/Acetam 5/325 Mg Tablet PO 1 tab Q4HR PRN Administration Moderate Pain (Level 4-6) Lipase/Protease/Amylase 2 cap 04/18/23 17:00 04/23/23 11:43 Lipase/Protease/Amylase Capsule PO 2 cap TIDWM MODESTA Administration Apixaban 5 mg 04/18/23 14:30 04/23/23 07:52 Apixaban 5 Mg Tablet PO 5 mg BID MODESTA Administration Calcium Citrate 500 mg 04/16/23 22:00 04/23/23 06:31 Calcium Citrate 250 Mg Tablet PO 500 mg TID MODESTA Administration Cholecalciferol 50 mcg 04/17/23 09:00 04/23/23 07:52 Cholecalciferol 25 Mcg Tablet PO 50 mcg DAILY MODESTA Administration Cyanocobalamin 1,000 mcg 04/17/23 09:00 04/23/23 07:51 Cyanocobalamin 500 Mcg Tablet PO 1,000 mcg DAILY MODESTA Administration Diclofenac Sodium 50 gm 04/17/23 09:00 04/23/23 07:48 Diclofenac Sodium 1% Gel 50 Gm Tube TOP 50 gm BID MODESTA Administration Ferrous Sulfate 325 mg 04/18/23 21:00 04/23/23 07:51 Ferrous Sulfate 325 Mg Tablet PO 325 mg BID MODESTA Administration Ceftriaxone Sodium 2 gm/ 100 mls @ 200 mls/hr 04/17/23 09:00 04/23/23 09:00 Sodium Chloride IV 04/27/23 23:59 Infused DAILY MODESTA Infusion Levothyroxine Sodium 100 mcg 04/17/23 07:00 04/23/23 06:30 Levothyroxine 100 Mcg Tablet PO 100 mcg QDAC MODESTA Administration Methocarbamol 750 mg 04/16/23 21:34 04/22/23 15:35 Methocarbamol 500 Mg Tablet PO 750 mg QID PRN Administration Spasms Metoprolol Tartrate 25 mg 04/20/23 09:00 04/23/23 07:52 Metoprolol Tartrate 25 Mg Tablet PO 25 mg BID MODESTA Administration Mirtazapine 15 mg 04/20/23 21:00 04/22/23 21:03 Mirtazapine 15 Mg Tablet PO 15 mg QPM MODESTA Administration Nicotine 1 patch 04/17/23 00:05 04/23/23 08:04 Nicotine 7 Mg Patch TOP Not Given DAILY MODESTA Ondansetron HCl 4 mg 04/16/23 20:34 04/19/23 16:27 Ondansetron Odt 4 Mg Tablet TL 4 mg Q6HR PRN Administration Nausea / Vomiting Pantoprazole Sodium 40 mg 04/20/23 09:00 04/23/23 06:30 Pantoprazole 40 Mg Tablet PO 40 mg BIDAC MODESTA Administration Potassium Chloride 20 meq 04/20/23 08:00 04/23/23 07:51 Potassium Chloride 20 Meq Tablet PO 20 meq DAILYWM MODESTA Administration Sodium Chloride 10 ml 04/16/23 20:34 04/20/23 08:54 Sodium Chloride Flush 0.9% 10 Ml Syringe IVP 10 ml PRN PRN Administration NEEDED PER PROVIDER ORDERS Sodium Chloride 10 ml 04/17/23 01:00 04/23/23 07:50 Sodium Chloride Flush 0.9% 10 Ml Syringe IVP 10 ml 0100,0900,1700 MODESTA Administration Thiamine HCl 100 mg 04/17/23 09:00 04/23/23 07:52 Thiamine 100 Mg Tablet PO 100 mg DAILY MODESTA Administration - Lab Result Fish Bone Diagrams: 04/21/23 07:22 04/21/23 07:22 - Additional Planning My Orders: My Active Orders 04/23/23 Palliative Care Consult [CONS] Routine 04/23/23 14:00 Potassium Chloride [Micro-K] 40 meq PO ONCE 04/24/23 09:00 Furosemide [Lasix] 20 mg PO DAILY Subjective - Subjective Patient Reports: Feeling Better, Resting Comfortably Objective Vital Signs: Vital Signs - 24 hr 04/22/23 04/22/23 04/22/23 13:52 15:37 16:39 Temperature 36.3 C L 36.6 C 36.5 C Heart Rate [ 94 95 97 Brachial] Respiratory 18 16 20 Rate Blood Pressure Blood Pressure 93/49 L [Left Brachial artery] Blood Pressure 104/49 L 108/54 L [Right Brachial artery] O2 Saturation 95 97 04/22/23 04/23/23 04/23/23 21:03 00:57 07:52 Temperature 36.5 C Heart Rate [ 84 Brachial] Respiratory 20 Rate Blood Pressure 103/51 L 121/53 L Blood Pressure [Left Brachial artery] Blood Pressure 106/58 L [Right Brachial artery] O2 Saturation 98 Oxygen O2 Source Room air I&O (Last 24 Hrs): Intake and Output Totals x24h 04/21/23 04/22/23 04/23/23 23:59 23:59 23:59 Intake Total 510 745 780 Output Total 175 Balance 510 570 780 General: Alert, Oriented x3, Cooperative, No acute distress Neuro: Alert, CN 2-12 Grossly Intact, Oriented Times 3 Cardiovascular: Regular rate, Normal S1, Normal S2, No murmurs Respiratory: Chest non-tender, No respiratory distress, Breath sounds nml Abdomen: Normal bowel sounds, Soft, No tenderness, No hepatospenomegaly, No masses Extremities: No clubbing, No cyanosis, No edema, Normal pulses, No tenderness/swelling - Results Results: Laboratory Results WBC 14.3 x10^3/uL (4.8-10.8) H 04/21/23 07:22 RBC 2.32 10^6/uL (4.20-5.40) L 04/21/23 07:22 Hgb 9.2 g/dL (12.0-16.0) L 04/21/23 07:22 Hct 29.0 % (37.0-47.0) L 04/21/23 07:22 MCV 125.0 fL (81.0-99.0) H 04/21/23 07:22 MCH 39.7 pg (27.0-31.0) H 04/21/23 07:22 MCHC 31.7 g/dL (32.0-36.0) L 04/21/23 07:22 RDW 15.3 % (12.0-15.0) H 04/21/23 07:22 Plt Count 68 10^3/uL (130-450) L 04/21/23 07:22 MPV 12.0 fL (7.9-10.8) H 04/21/23 07:22 Neut # (Auto) 10.8 10^3/uL (1.5-6.6) H 04/21/23 07:22 Lymph # (Auto) 2.0 10^3/uL (1.5-3.5) 04/21/23 07:22 [place] # (Auto) 1.1 10^3/uL (0.0-1.0) H 04/21/23 07:22 Eos # (Auto) 0.1 10^3/uL (0.0-0.7) 04/21/23 07:22 Baso # (Auto) 0.1 10^3/uL (0.0-0.1) 04/21/23 07:22 Absolute Nucleated RBC 0.00 x10^3/uL 04/21/23 07:22 Total Counted 100 04/16/23 12:53 Band Neuts % (Manual) Not Reportable 04/18/23 08:07 Reactive Lymphs % (Man) 2 % 04/16/23 12:53 Abnorm Lymph % (Manual) Not Reportable 04/18/23 08:07 Nucleated RBC % 0.0 /100WBC 04/21/23 07:22 Neutrophils # (Manual) Not Reportable 04/18/23 08:07 Lymphocytes # (Manual) Not Reportable 04/18/23 08:07 Monocytes # (Manual) Not Reportable 04/18/23 08:07 Eosinophils # (Manual) Not Reportable 04/18/23 08:07 Basophils # (Manual) Not Reportable 04/18/23 08:07 Differential Comment MANUAL=AUTO DIFF 04/18/23 08:07 Manual Slide Review Indicated 04/21/23 07:22 WBC Morphology NORMAL APPEARANCE (NORMAL) 04/21/23 07:22 Platelet Estimate DECREASED (<130,000) (NORMAL) 04/21/23 07:22 Platelet Morphology NORMAL APPEARANCE (NORMAL) 04/21/23 07:22 RBC Morph Micro Appear 4+ MACROCYTOSIS (NORMAL) 1+ HYPOCHROMASIA (NORMAL) 1+ ANISOCYTOSIS (NORMAL) 04/21/23 07:22 RBC Morph Micro Appear 4+ MACROCYTOSIS (NORMAL) 1+ HYPOCHROMASIA (NORMAL) 1+ ANISOCYTOSIS (NORMAL) 04/21/23 07:22 RBC Morph Micro Appear 4+ MACROCYTOSIS (NORMAL) 1+ HYPOCHROMASIA (NORMAL) 1+ ANISOCYTOSIS (NORMAL) 04/21/23 07:22 Sodium 138 mmol/L (135-145) 04/21/23 07:22 Potassium 4.0 mmol/L (3.5-4.5) 04/21/23 07:22 Chloride 108 mmol/L (101-111) 04/21/23 07:22 Carbon Dioxide 23 mmol/L (21-32) 04/21/23 07:22 Anion Gap 7.0 (6-13) 04/21/23 07:22 BUN 12 mg/dL (6-20) 04/21/23 07:22 Creatinine 0.7 mg/dL (0.6-1.3) 04/21/23 07:22 Estimated GFR (MDRD) 84 (>89) L 04/21/23 07:22 Glucose 136 mg/dL (74-104) H 04/21/23 07:22 Lactic Acid 0.6 mmol/L (0.5-2.2) 04/16/23 12:53 Calcium 8.3 mg/dL (8.5-10.3) L 04/21/23 07:22 Magnesium 1.9 mg/dL (1.7-2.3) 04/16/23 13:00 Iron 31 ug/dL (50-212) L 04/19/23 09:58 TIBC TNP 04/19/23 09:58 % Saturation TNP 04/19/23 09:58 Transferrin < 75 mg/dL (203-362) L 04/19/23 09:58 Total Bilirubin 0.5 mg/dL (0.2-1.0) 04/21/23 07:22 AST 22 IU/L (10-42) 04/21/23 07:22 ALT 37 IU/L (10-60) 04/21/23 07:22 Alkaline Phosphatase 207 IU/L (42-121) H 04/21/23 07:22 Troponin I High Sens 26.2 ng/L (2.3-14.8) H* 04/16/23 14:27 Total Protein 4.8 g/dL (6.4-8.9) L 04/21/23 07:22 Albumin 2.3 g/dL (3.2-5.5) L 04/21/23 07:22 Globulin 2.5 g/dL (2.1-4.2) 04/21/23 07:22 Albumin/Globulin Ratio 0.9 (1.0-2.2) L 04/21/23 07:22 Lipase < 10 U/L (11-82) L 04/16/23 12:53 Vitamin B12 6700 pg/mL (180-914) H 04/19/23 09:58 Vitamin D 25-Hydroxy 37.6 ng/mL (30.0-100.0) 04/21/23 07:22 Folate 8.0 ng/mL (5.90 - >24.8) 04/19/23 09:58 TSH 1.99 uIU/mL (0.34-5.60) 04/21/23 07:22 Urine Color YELLOW 04/16/23 15:41 Urine Clarity HAZY (CLEAR) 04/16/23 15:41 Urine pH 6.0 PH (5.0-7.5) 04/16/23 15:41 Ur Specific [place] 1.020 (1.002-1.030) 04/16/23 15:41 Urine Protein TRACE mg/dL (NEGATIVE) 04/16/23 15:41 Urine Glucose (UA) NEGATIVE mg/dL (NEGATIVE) 04/16/23 15:41 Urine Ketones NEGATIVE mg/dL (NEGATIVE) 04/16/23 15:41 Urine Occult Blood NEGATIVE (NEGATIVE) 04/16/23 15:41 Urine Nitrite NEGATIVE (NEGATIVE) 04/16/23 15:41 Urine Bilirubin NEGATIVE (NEGATIVE) 04/16/23 15:41 Urine Urobilinogen 0.2 (NORMAL) E.U./dL (NORMAL) 04/16/23 15:41 Ur Leukocyte Esterase SMALL (NEGATIVE) H 04/16/23 15:41 Urine RBC None Seen /HPF (0-5) 04/16/23 15:41 Urine WBC 11-25 /HPF (0-5) H 04/16/23 15:41 Ur Squamous Epith Cells FEW Squamous (<= Few) 04/16/23 15:41 Urine Bacteria Many /HPF (None Seen) H 04/16/23 15:41 Ur Microscopic Review INDICATED 04/16/23 15:41 Urine Culture Comments INDICATED 04/16/23 15:41 Urine Creatinine 22.3 mg/dL 04/21/23 10:30 Urine Microalbumin 0.7 mg/dL 04/21/23 10:30 Microalb/Creat Ratio 31.4 ug/mg (<30.0) H 04/21/23 10:30 Nasal Adenovirus (PCR) NOT DETECTED 04/16/23 12:46 Nasal B. parapertussis DNA (PCR) NOT DETECTED 04/16/23 12:46 Nasal Coronavir 229E PCR NOT DETECTED 04/16/23 12:46 Nasal Coronavir HKU1 PCR NOT DETECTED 04/16/23 12:46 Nasal Coronavir NL63 PCR NOT DETECTED 04/16/23 12:46 Nasal Coronavir OC43 PCR NOT DETECTED 04/16/23 12:46 Nasal Enterovir/Rhinovir PCR NOT DETECTED 04/16/23 12:46 Nasal Influenza B PCR NOT DETECTED 04/16/23 12:46 Nasal Influenza A PCR NOT DETECTED 04/16/23 12:46 Nasal Parainfluen 1 PCR NOT DETECTED 04/16/23 12:46 Nasal Parainfluen 2 PCR NOT DETECTED 04/16/23 12:46 Nasal Parainfluen 3 PCR NOT DETECTED 04/16/23 12:46 Nasal Parainfluen 4 PCR NOT DETECTED 04/16/23 12:46 Nasal RSV (PCR) NOT DETECTED 04/16/23 12:46 Nasal B.pertussis DNA PCR NOT DETECTED 04/16/23 12:46 Nasal C.pneumoniae (PCR) NOT DETECTED 04/16/23 12:46 Paresh Human Metapneumo PCR NOT DETECTED 04/16/23 12:46 Nasal M.pneumoniae (PCR) NOT DETECTED 04/16/23 12:46 Nasal SARS-CoV-2 (PCR) NOT DETECTED 04/16/23 12:46 Stl C. cayetanensis PCR Not Detected (Not Detected) 04/18/23 15:58 Stool Rotavirus A PCR Not Detected (Not Detected) 04/18/23 15:58 Stl Adenov F 40/41 PCR Not Detected (Not Detected) 04/18/23 15:58 Stool Astrovirus (PCR) Not Detected (Not Detected) 04/18/23 15:58 Stool Campylobacter PCR Not Detected (Not Detected) 04/18/23 15:58 Stl C. diff Tox A/B PCR Not Detected (Not Detected) 04/18/23 15:58 Stool Cryptosporidium PCR Not Detected (Not Detected) 04/18/23 15:58 Stl Sh Tox Pr E STEC PCR Not Detected (Not Detected) 04/18/23 15:58 Stool E coli O157 PCR Not applicable (Not Detected) 04/18/23 15:58 Stl Enterotoxigenic E PCR Not Detected (Not Detected) 04/18/23 15:58 Stool EPEC (PCR) Not Detected (Not Detected) 04/18/23 15:58 Stl E. histolytica PCR Not Detected (Not Detected) 04/18/23 15:58 Stool Giardia Lamblia PCR Not Detected (Not Detected) 04/18/23 15:58 Stl P. shigelloides PCR Not Detected (Not Detected) 04/18/23 15:58 Stool Salmonella PCR Not Detected (Not Detected) 04/18/23 15:58 Stool Sapovirus (PCR) Not Detected (Not Detected) 04/18/23 15:58 Stl Shigella/EIEC PCR Not Detected (Not Detected) 04/18/23 15:58 St Y.enterocolitica PCR Not Detected (Not Detected) 04/18/23 15:58 Stool Vibrio (PCR) Not Detected (Not Detected) 04/18/23 15:58 Stl Vibrio cholerae PCR Not Detected (Not Detected) 04/18/23 15:58 Stl Enteroaggr Ecoli PCR Not Detected (Not Detected) 04/18/23 15:58 Stl Norovirus GI/GII PCR Not Detected (Not Detected) 04/18/23 15:58 Ethyl Alcohol < 10.0 mg/dL 04/16/23 14:27 - Procedures Procedures: Procedures REPOSITION LEFT UPPER FEMUR WITH INT FIX, OPEN APPROACH (03/05/23) Sepsis Event Note (H) - Evaluation Current Stage of Sepsis: Ruled out Current Medications - Current Medications Current Medications: Active Medications Generic Name Dose Route Start Last Admin Trade Name Freq PRN Reason Stop Dose Admin Acetaminophen 650 mg 04/16/23 20:34 Acetaminophen 325 Mg Tablet PO Q4HR PRN Pain 1 to 4, or Fever Hydrocodone Bitart/Acetaminophen 1 tab 04/18/23 13:09 04/23/23 06:43 Hydrocod/Acetam 5/325 Mg Tablet PO 1 tab Q4HR PRN Administration Moderate Pain (Level 4-6) Albuterol/Ipratropium 3 ml 04/16/23 21:54 Ipratropium/Albuterol 3 Ml Neb INH Q4HR PRN Wheezing Lipase/Protease/Amylase 2 cap 04/18/23 17:00 04/23/23 11:43 Lipase/Protease/Amylase Capsule PO 2 cap TIDWM MODESTA Administration Apixaban 5 mg 04/18/23 14:30 04/23/23 07:52 Apixaban 5 Mg Tablet PO 5 mg BID MODESTA Administration Calcium Citrate 500 mg 04/16/23 22:00 04/23/23 06:31 Calcium Citrate 250 Mg Tablet PO 500 mg TID MODESTA Administration Cholecalciferol 50 mcg 04/17/23 09:00 04/23/23 07:52 Cholecalciferol 25 Mcg Tablet PO 50 mcg DAILY MODESTA Administration Cyanocobalamin 1,000 mcg 04/17/23 09:00 04/23/23 07:51 Cyanocobalamin 500 Mcg Tablet PO 1,000 mcg DAILY MODESTA Administration Diclofenac Sodium 50 gm 04/17/23 09:00 04/23/23 07:48 Diclofenac Sodium 1% Gel 50 Gm Tube TOP 50 gm BID MODESTA Administration Docusate Sodium 100 mg 04/16/23 21:17 Docusate Sodium 100 Mg Capsule PO BID PRN Constipation Fentanyl 25 mcg 04/18/23 13:10 Fentanyl 100 Mcg/2 Ml Vial IVP Q2HR PRN Severe Pain (Level 7-10) Ferrous Sulfate 325 mg 04/18/23 21:00 04/23/23 07:51 Ferrous Sulfate 325 Mg Tablet PO 325 mg BID MODESTA Administration Furosemide 20 mg 04/24/23 09:00 Furosemide 20 Mg Tablet PO DAILY [facility] Ceftriaxone Sodium 2 gm/ 100 mls @ 200 mls/hr 04/17/23 09:00 04/23/23 09:00 Sodium Chloride IV 04/27/23 23:59 Infused DAILY MODESTA Infusion Levothyroxine Sodium 100 mcg 04/17/23 07:00 04/23/23 06:30 Levothyroxine 100 Mcg Tablet PO 100 mcg QDAC MODESTA Administration Methocarbamol 750 mg 04/16/23 21:34 04/22/23 15:35 Methocarbamol 500 Mg Tablet PO 750 mg QID PRN Administration Spasms Metoprolol Tartrate 25 mg 04/20/23 09:00 04/23/23 07:52 Metoprolol Tartrate 25 Mg Tablet PO 25 mg BID MODESTA Administration Mirtazapine 15 mg 04/20/23 21:00 04/22/23 21:03 Mirtazapine 15 Mg Tablet PO 15 mg QPM MODESTA Administration Nicotine 1 patch 04/17/23 00:05 04/23/23 08:04 Nicotine 7 Mg Patch TOP Not Given DAILY MODESTA Ondansetron HCl 4 mg 04/16/23 20:34 04/19/23 16:27 Ondansetron Odt 4 Mg Tablet TL 4 mg Q6HR PRN Administration Nausea / Vomiting Ondansetron HCl 4 mg 04/16/23 20:34 Ondansetron 4 Mg/2 Ml Vial IVP Q6HR PRN Nausea / Vomiting Ondansetron HCl 4 mg 04/16/23 21:35 Ondansetron Odt 4 Mg Tablet PO Q4HR PRN Nausea / Vomiting Pantoprazole Sodium 40 mg 04/20/23 09:00 04/23/23 06:30 Pantoprazole 40 Mg Tablet PO 40 mg BIDAC MODESTA Administration Potassium Chloride 20 meq 04/20/23 08:00 04/23/23 07:51 Potassium Chloride 20 Meq Tablet PO 20 meq DAILYWM MODESTA Administration Potassium Chloride 40 meq 04/23/23 14:00 Potassium Chloride 10 Meq Capsule PO 04/23/23 14:01 ONCE ONE Sodium Chloride 10 ml 04/16/23 20:34 04/20/23 08:54 Sodium Chloride Flush 0.9% 10 Ml Syringe IVP 10 ml PRN PRN Administration NEEDED PER PROVIDER ORDERS Sodium Chloride 10 ml 04/17/23 01:00 04/23/23 07:50 Sodium Chloride Flush 0.9% 10 Ml Syringe IVP 10 ml 0100,0900,1700 MODESTA Administration Thiamine HCl 100 mg 04/17/23 09:00 04/23/23 07:52 Thiamine 100 Mg Tablet PO 100 mg DAILY MODESTA Administration methocarbamoL [Methocarbamol] 750 mg PO Q6H 02/28/15 Cyanocobalamin (Vitamin B-12) [Vitamin B-12] 1,000 mcg PO DAILY 03/05/23 Ferrous Sulfate 325 mg PO BID 03/05/23 Levothyroxine [Synthroid] 100 mcg PO QDAC 03/05/23 Lipase/Protease/Amylase [Alejandra Dr 6,000 Unit Capsule] 1 - 2 ea PO DAILY 03/05/23 Ondansetron HCl 4 mg PO Q8HR PRN 03/05/23 Pantoprazole Sodium 40 mg PO DAILY 03/05/23 Furosemide [Lasix] 10 mg PO DAILY PRN 04/18/23
[2023-04-23] MEDS ORDERED: POTASSIUM CHLORIDE 10 MEQ CAPSULE PO ONE (14:00)
--- NOTE | 2023-04-23 14:41 | Discharge Plan ---
Discharge Plan Problem Reviewed?: Yes Disposition: Home Health Service Condition: Fair Prescriptions: Cefdinir 300 mg PO BID 4 Days #8 cap Apixaban [Eliquis] 5 mg PO BID 90 Days #180 tab Potassium Chloride [K-Dur] 20 meq PO DAILYWM 7 Days #7 tab Furosemide [Lasix] 20 mg PO DAILY 30 Days #30 tab Metoprolol Tartrate [Lopressor] 25 mg PO BID #60 tab Pantoprazole [Protonix] 40 mg PO BIDAC 60 Days #120 tab Mirtazapine [Remeron] 15 mg PO QPM #30 tab Diet: Regular Activity Restrictions: Activity as Tolerated Assistance Devices: Walker Follow-Up Care: Home Health - RN, Home Health - PT, Home Health - OT No Smoking: If you smoke, Please STOP! Call for help.
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
[2023-04-23] MEDS: MIRTAZAPINE 15 MG TABLET PO SCH (21:28)
[2023-04-24] MEDS: SODIUM CHLORIDE FLUSH 0.9% 10 ML SYRINGE IVP SCH ×2 (00:50→08:24)
[2023-04-24] MEDS: PANTOPRAZOLE 40 MG TABLET PO SCH (06:42)
[2023-04-24] MEDS: LEVOTHYROXINE 100 MCG TABLET PO SCH (06:43)
[2023-04-24] MEDS: CALCIUM CITRATE 250 MG TABLET PO SCH (06:43)
[2023-04-24 07:44] VITALS: O2SAT 94
[2023-04-24] MEDS: FERROUS SULFATE 325 MG TABLET PO SCH (08:22)
[2023-04-24] MEDS: METOPROLOL TARTRATE 25 MG TABLET PO SCH (08:22)
[2023-04-24] MEDS: APIXABAN 5 MG TABLET PO SCH (08:22)
[2023-04-24] MEDS: POTASSIUM CHLORIDE 20 MEQ TABLET PO SCH (08:22)
[2023-04-24] MEDS: THIAMINE 100 MG TABLET PO SCH (08:22)
[2023-04-24] MEDS: CYANOCOBALAMIN 500 MCG TABLET PO SCH (08:23)
[2023-04-24] MEDS: DICLOFENAC SODIUM 1% GEL 50 GM TUBE TOP SCH (08:23)
[2023-04-24] MEDS: cefTRIAXone 2 GM in SODIUM CHLORIDE 0.9% MINIBAG 100 ML IV SCH (08:24)
[2023-04-24] MEDS: LIPASE/PROTEASE/AMYLASE CAPSULE PO SCH ×2 (08:24→11:55)
[2023-04-24] MEDS: CHOLECALCIFEROL 25 MCG TABLET PO SCH (08:24)
[2023-04-24] MEDS: NICOTINE 7 MG PATCH TOP SCH (08:25)
[2023-04-24] MEDS: HYDROcod/ACETAM 5/325 MG TABLET PO PRN (08:30)
[2023-04-24 08:32] VITALS: BP 114/59
[2023-04-24] MEDS ORDERED: FUROSEMIDE 20 MG TABLET PO SCH (09:00)
--- NOTE | 2023-04-24 11:05 | Discharge Plan ---
Discharge Plan Problem Reviewed?: Yes Disposition: 06 Home Health Service Condition: Fair Prescriptions: Cefdinir 300 mg PO BID 4 Days #8 cap Apixaban [Eliquis] 5 mg PO BID 90 Days #180 tab Folic Acid 1 mg PO DAILY #30 tablet Potassium Chloride [K-Dur] 20 meq PO DAILYWM 7 Days #7 tab Furosemide [Lasix] 20 mg PO DAILY 30 Days #30 tab Metoprolol Tartrate [Lopressor] 25 mg PO BID #60 tab Pantoprazole [Protonix] 40 mg PO BIDAC 60 Days #120 tab Mirtazapine [Remeron] 15 mg PO QPM #30 tab Diet: Regular Activity Restrictions: Activity as Tolerated Shower Restrictions: No Driving Restrictions: Yes Assistance Devices: Walker Weight Bearing: Full Weight Instruction Topics: Embolism Pulmonary Health Concerns: You required hospitalization because we found you to have a clot in your lungs and low blood pressure and bacteria in the bloodstream. You are being discharged home with prescriptions to take several more days of antibiotics and to a take blood thinner twice a day, for a minimum of 3 months. Your primary care provider will decide if you need the blood thinner longer than 3 months. Also newly prescribed is Folate daily, several more days of Lasix with Potassium. All new prescriptions were electronically sent to your [facility] pharmacy in [place]. Please picker packer the medicines, especially Eliquis, so that you do not not miss a dose tonight. Plan of Treatment: As above, and you may resume all your usual pre-hospital medications, except you no longer need to take vitamin B12- you have an excessive B12 level in your bloodstream now. Also, you should have physical therapy in your home, for strengthening (a referral to [facility] has been placed). Please see your Primary Care Provider in the next 5-10 days for hospital follow- up visit. Care Goals: Improvement in symptoms and stabilization are the goals. Assessment: The patient understands and is agreeable with the plan. Additional Instructions or Follow Up instructions: If you have new or worsening symptoms, call your PCP for advice, or go to a Walk-In Clinic or come to the ER. Follow-Up Care: Home Health - RN, Home Health - PT, Home Health - OT No Smoking: If you smoke, Please STOP! Call for help. Follow-up with: Madelyn Tan MD [Physician No Access] -
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
[2023-04-24 23:08] LABS: HBsAG SCREEN Negative (Negative); HCV AB Non Reactive (Non Reactive); HEPATITIS B CORE IGM AB Negative (Negative)
[2023-04-27] MEDS ORDERED: cefTRIAXone 2 GM in SODIUM CHLORIDE 0.9% MINIBAG 100 ML IV SCH (09:00)
== END 2023-04-24 13:14 | disposition home health service (06) | DRG 175 ==
LOC: EDUNIT# → ED 12:04 → MS3 20:34
PROVIDERS: ADMIT Internal Medicine; ATTEND Internal Medicine
DX: I26.93 Single subsegmental thrombotic pulmonary embolism without acute cor pulmonale (principal); E43 Unspecified severe protein-calorie malnutrition; R74.8 Abnormal levels of other serum enzymes; G93.41 Metabolic encephalopathy; D64.9 Anemia, unspecified; Z68.1 Body mass index [BMI] 19.9 or less, adult; R78.81 Bacteremia; I47.10 Supraventricular tachycardia, unspecified; E87.20 Acidosis, unspecified; R11.10 Vomiting, unspecified; R18.8 Other ascites; E87.6 Hypokalemia; R11.2 Nausea with vomiting, unspecified; E03.9 Hypothyroidism, unspecified; F41.9 Anxiety disorder, unspecified; F17.200 Nicotine dependence, unspecified, uncomplicated; M25.512 Pain in left shoulder; R53.1 Weakness; R19.7 Diarrhea, unspecified; I95.9 Hypotension, unspecified; D53.9 Nutritional anemia, unspecified; A49.8 Other bacterial infections of unspecified site; Z79.82 Long term (current) use of aspirin; L40.50 Arthropathic psoriasis, unspecified; M79.7 Fibromyalgia; M85.80 Other specified disorders of bone density and structure, unspecified site; K21.9 Gastro-esophageal reflux disease without esophagitis; Z51.5 Encounter for palliative care; Z91.81 History of falling; G89.29 Other chronic pain; Z79.891 Long term (current) use of opiate analgesic; R63.0 Anorexia; F32.A Depression, unspecified; S72.145D Nondisplaced intertrochanteric fracture of left femur, subsequent encounter for closed fracture with routine healing; W18.30XD Fall on same level, unspecified, subsequent encounter; R10.13 Epigastric pain; R05.9 Cough, unspecified; Z96.612 Presence of left artificial shoulder joint
CPT/HCPCS: 36415; 71045; 71275; 72170; 73030; 74177; 80048; 80053; 80074; 81001; 82043; 82306; 82570; 82607; 82746; 83540; 83605; 83690; 83735; 84443; 84466; 84484; 85025; 87040; 87077; 87086; 87150; 87181; 87507; 87633; 93005; 93306; 96361; 96372; 96374; 97116; 97161; 97166; 97530; 99285; 99406; A9270; G0480; J1650; Q0162; Q9967; 80320; 81003; 82803; 87493

== ENCOUNTER 2023-06-06 10:20 | Outpatient (CLI) | payer MEDICARE, OTHER ==
--- NOTE | 2023-06-06 21:47 | CT Report ---
PROCEDURE: CHEST WO INDICATIONS: LUNG EMPYEMA TECHNIQUE: Noncontrast 1mm axial images acquired from the pulmonary apex to the posterior costophrenic angles in the supine end-inspiration, supine end-expiration, and prone end-inspiration positions. Axial 5 mm soft tissue kernel reconstructions were performed as well as 8 mm axial MIP and coronal and sagittal 5 mm reformations. For radiation dose reduction, the following was used: automated exposure control , adjustment of mA and/or kV according to patient size. COMPARISON: CT pulmonary angiogram 04/16/2023. FINDINGS: Image quality: Excellent. Lungs: Left upper lobe juxta fissural small opacity, (3/101), decreased. Associated scarring. Minimal scattered ground opacity in the right lower lobe. Scattered curvilinear densities, some of which darlin ear branching and likely due to contrast, unchanged. No mass or significant pulmonary nodules. The ai rways are clear. No bronchiectasis. Pleura: No pneumothorax. Trace pleural effusions. Mediastinum: Heart size is normal. No pericardial effusion. No large vessel abnormality. No mediastin al adenopathy by size criteria. Chest wall and lower neck: Thyroid is unremarkable. No axillary or supraclavicular adenopathy by size . Bilateral breast implants. Bones: No aggressive osseous abnormality. T11 vertebroplasty. Upper Abdomen: Trace fluid adjacent to the liver is again seen. IMPRESSION: 1. Left upper lobe juxta fissural minimal opacity is decreased. Suspect improving infectious/inflamma tory etiology. 2. Scattered ground glass opacity in the right lower lobe. Likely infectious/inflammatory etiology. A telectasis is also in the differential diagnosis. 3. Bilateral pleural effusions. 4. Trace free fluid adjacent to the liver is again seen. Reviewed by: Lázaro Hicks MD on 06/06/2023 9:45 PM PST Approved by: Lázaro Hicks MD on 06/06/2023 9:45 PM PST Station ID: [id number]
== END 2023-06-06 10:21 | disposition home or self-care (01) ==
LOC: DI 10:20
PROVIDERS: ATTEND Internal Medicine
DX: J90 Pleural effusion, not elsewhere classified (principal); J86.9 Pyothorax without fistula

== ENCOUNTER 2023-06-07 08:00 | Outpatient (CLI) | payer MEDICARE, OTHER ==
--- NOTE | 2023-06-07 15:40 | XRAY Report ---
PROCEDURE: Hip BILAT INDICATIONS: LEFT HIP ORIF/ RIGHT HIP FRACTURE TECHNIQUE: AP view the pelvis and lateral views of the right and left hips. COMPARISON: Pelvis radiograph 6 04/18/2023 FINDINGS: Bones: Postsurgical changes are again seen from left proximal femur fracture fixation. Metal hardwar e is in stable position. There is stenosis osteopenia. Mild chronic deformity of the right superior a nd inferior pubic rami. No definite acute osseous fracture is seen. Bones are osteopenic. Soft tissues: No suspicious soft tissue calcifications. IMPRESSION: 1.No acute osseous abnormality. If there is clinical concern or persistent symptoms, additional imagi ng such as repeat radiographs or advanced imaging (e.g. CT, MRI) may be helpful for further evaluatio n. 2.Stable appearance of postsurgical changes at the left proximal femur. 3.Remote prior healed fractures of the right superior and inferior pubic rami. Reviewed by: Tapan Lee MD on 06/07/2023 3:39 PM PST Approved by: Tapan Lee MD on 06/07/2023 3:39 PM PST Station ID: [id number]
--- NOTE | 2023-06-07 15:43 | XRAY Report ---
PROCEDURE: Ankle 3 View RT INDICATIONS: RIGHT ANKLE PAIN TECHNIQUE: 4 views of the ankle were acquired. COMPARISON: None. FINDINGS: Bones: No acute fractures or dislocations. Ankle mortise is normally aligned. No suspicious bony l esions. Generalized osteopenia. Degenerative spurring is seen at the dorsal aspect of the talonavicul ar joint. Soft tissues: No suspicious soft tissue calcification. Mild nonspecific soft tissue edema surrounding the ankle and hindfoot. IMPRESSION: No acute osseous abnormality. If there is clinical concern or persistent symptoms, additional imaging such as repeat radiographs or advanced imaging (e.g. CT, MRI) may be helpful for further evaluation. Reviewed by: Tapan Lee MD on 06/07/2023 3:42 PM PST Approved by: Tapan Lee MD on 06/07/2023 3:42 PM PST Station ID: [id number]
== END 2023-06-07 23:59 | disposition home or self-care (01) ==
LOC: DI.WOS 08:00
PROVIDERS: ATTEND Orthopaedic Surgery
DX: M25.571 Pain in right ankle and joints of right foot (principal); M25.551 Pain in right hip; S72.145D Nondisplaced intertrochanteric fracture of left femur, subsequent encounter for closed fracture with routine healing; S32.591D Other specified fracture of right pubis, subsequent encounter for fracture with routine healing

== ENCOUNTER 2023-07-04 14:03 | Outpatient (CLI) | payer MEDICARE, OTHER ==
[2023-07-04 19:45] LABS: HCT - HEMATOCRIT 32.3 % (37.0-47.0); HGB - HEMOGLOBIN 9.6 g/dL (12.0-16.0); MEAN CORPUSCULAR HEMOGLOBIN 38.1 pg (27.0-31.0); MEAN CORPUSCULAR HGB CONC 29.7 g/dL (32.0-36.0); MEAN CORPUSCULAR VOLUME 128.2 fL (81.0-99.0); MEAN PLATELET VOLUME 10.7 fL (7.9-10.8); RED BLOOD COUNT 2.52 10^6/uL (4.20-5.40); RED CELL DISTRIBUTION WIDTH 18.7 % (12.0-15.0); WHITE BLOOD COUNT 3.6 x10^3/uL (4.8-10.8)
[2023-07-04 20:10] LABS: ALBUMIN 2.8 g/dL (3.2-5.5); ALBUMIN/GLOBULIN RATIO 0.9 (1.0-2.2); BILIRUBIN,TOTAL 0.3 mg/dL (0.2-1.0); CALCIUM 8.3 mg/dL (8.5-10.3); CREATININE 0.8 mg/dL (0.6-1.3); POTASSIUM 4.7 mmol/L (3.5-4.5); TOTAL PROTEIN 5.8 g/dL (6.4-8.9)
[2023-07-04 21:15] LABS: THYROID STIMULATING HORMONE 4.86 uIU/mL (0.34-5.60)
== END 2023-07-04 14:04 | disposition home or self-care (01) ==
LOC: LAB.S 14:03
PROVIDERS: ATTEND Internal Medicine
DX: R53.83 Other fatigue (principal); K86.89 Other specified diseases of pancreas; R74.8 Abnormal levels of other serum enzymes; E03.9 Hypothyroidism, unspecified
CPT/HCPCS: 36415; 80053; 82175; 82306; 82607; 83540; 83655; 83825; 84443; 84466; 85027

== ENCOUNTER 2023-07-15 05:24 | Outpatient (CLI) | payer MEDICARE, OTHER | END 2023-07-15 23:59 | disposition EMS.NT | LOC: EMS 05:24 | DX: S81.801A Unspecified open wound, right lower leg, initial encounter (principal); X58.XXXA Exposure to other specified factors, initial encounter; Y92.009 Unspecified place in unspecified non-institutional (private) residence as the place of occurrence of the external cause ==

== ENCOUNTER 2023-08-22 12:19 | Outpatient (CLI) | payer MEDICARE, OTHER | END 2023-08-22 23:59 | disposition short-term general hospital (02) | LOC: EMS 12:19 | DX: R55 Syncope and collapse (principal) | CPT/HCPCS: A0425; A0429 ==